=== PATIENT | female | born 1945 | race Caucasian/White ===

== ENCOUNTER 2016-08-30 20:40 | Inpatient (IN) | payer MEDICARE, BC, OTHER ==
[~2016-08-30] VITALS: Ht 160 cm; Wt 104.5 kg
[~2016-08-30 20:40] MED LIST: /HCTZ25TA PO; FISHOIL PO; GLUC250C5 PO; LEVO100T4 PO; SIMV20TA2 PO
[2016-08-30] MEDS ORDERED: ASPIRIN 81 MG CHEW TABLET As Ordered ONE (21:36)
[2016-08-30 22:00] LABS: ANION GAP 6 MEQ/L (8-16); BLOOD UREA NITROGEN 18 MG/DL (7-18); CALCIUM LEVEL 8.9 MG/DL (8.8-10.2); CARBON DIOXIDE LEVEL 31 MEQ/L (21-32); CHLORIDE LEVEL 108 MEQ/L (98-107); CREATININE FOR GFR 0.88 MG/DL (0.55-1.02); GLOMERULAR FILTRATION RATE > 60.0 (>39); GLUCOSE, FASTING 125 MG/DL (83-110); POTASSIUM SERUM 3.4 MEQ/L (3.5-5.1); SODIUM LEVEL 145 MEQ/L (136-145)
[2016-08-30 22:01] LABS: INR 1.55
[2016-08-30] MEDS ORDERED: DIGO0.12 PO (22:01)
[2016-08-30] MEDS ORDERED: MELA10TA4 PO (22:01)
[2016-08-30] MEDS ORDERED: B COTAB3 PO (22:01)
[2016-08-30] MEDS ORDERED: ATOR40TA PO (22:01)
[2016-08-30] MEDS ORDERED: SYNT100T PO (22:01)
[2016-08-30] MEDS ORDERED: VITMTA PO (22:01)
[2016-08-30] MEDS ORDERED: GLUCTAB6 PO (22:01)
[2016-08-30] MEDS ORDERED: VITA100066 PO (22:01)
[2016-08-30] MEDS ORDERED: XARE20TA PO (22:01)
[2016-08-30] MEDS ORDERED: REFR0.5D8 OU (22:01)
[2016-08-30] MEDS ORDERED: REST0.05 OU (22:01)
[2016-08-30] MEDS ORDERED: SYST0.3G OU (22:01)
[2016-08-30] MEDS ORDERED: LOPR1TAB6 PO (22:01)
[2016-08-30] MEDS ORDERED: CALC1TAB30 PO (22:01)
[2016-08-30] MEDS ORDERED: LOTE0.5S OU (22:01)
[2016-08-30 22:38] LABS: BASO % 0.2 % (0.0-1.0); EOS # 0.1 K/mm3 (0.0-0.50); EOS % 0.8 % (0.0-3.0); LARGE UNSTAINED CELL # 0.1 K/mm3 (0.0-0.4); LARGE UNSTAINED CELL % 1.2 % (0.0-4.0); LYMPH # 1.3 K/mm3 (1.5-4.5); LYMPH % 13.4 % (24.0-44.0); MEAN CORPUSCULAR HEMOGLOBIN 30.4 pg (27.0-33.0); MONO # 0.5 K/mm3 (0.0-0.8); MONO % 5.2 % (0.0-5.0); NEUTROPHILS # 7.1 K/mm3 (1.8-7.7); NEUTROPHILS % 79.3 % (36.0-66.0); PLATELET COUNT, AUTOMATED 222 k/mm3 (150-450); WHITE BLOOD COUNT 8.9 K/mm3 (4.0-10.0)
[2016-08-31] VITALS (8 sets, daily range): BP systolic 117–140; BP diastolic 53–76
[2016-08-31] LABS: DIGOXIN LEVEL 0.7 NG/ML (0.5-2.0); FREE T4 1.68 NG/DL (0.76-1.46)
[2016-08-31] MEDS ORDERED: NS 1,000 ML IV SCH (00:02)
[2016-08-31] MEDS ORDERED: ONDANSETRON 4MG/2ML VIAL (J2405) IV PRN (00:15)
[2016-08-31] MEDS ORDERED: POTASSIUM CHLORIDE 10 MEQ SR TABLET PO SCH (01:01)
--- NOTE | 2016-08-31 01:08 | HPEPDOC ---
General Date of Admission Aug 31, 2016 at 00:02 Chief Complaint The patient is a 71-year-old female admitted with a reason for visit of CVA. History of Present Illness 71-year-old female with past medical history of hypertension, dyslipidemia, atrial fibrillation on Xarelto, hypothyroidism, and recent right-sided CVA status post TPA on 07/02/16 at [facility] presented to the ER after the patient went to Dr. Perez of neurology's office complaining of worsening left sided weakness. The patient states that her residual deficits following the CVA on 07/02 was left-sided weakness. However following TPA treatment and subsequent rehabilitation, the patient was able to regain most of her baseline physical function. However, the patient states that over the last 10 days she has had persistent and recurrent weakness of the left upper and left lower extremities. She notes that she has been dropping utensils with her left hand, and has had more trouble with her gait while using the rolling walker. The patient went to Dr. Perez's office today, and had an MRI of the brain done. Apparently, this study showed a new CVA on the right side. The patient was subsequently sent to the ER for further evaluation and management. During this time, the patient denies any fevers, chills, chest pain, palpitations, shortness of breath, facial droop, slurring of speech, visual blurring, or any other acute complaints. The ER physician has gone into contact with Dr. Perez of neurology, and he is recommending adding 81 mg of aspirin to the patient's medication regimen, which already includes Xarelto. The patient will be admitted under the service of Dr. Garcia, who will begin to follow the patient on 08/31/2016 at 7 AM. Home Medications Scheduled (Calcium 500+D 500-200 mg-Unit) 1 Tab Tab 1 TAB PO QHS (Reported) (Glucosamine Chondroitin) 1 Tab Tab 1 TAB PO BID (Reported) (Restasis) 0.05 % Emu 1 DROP OU BID (Reported) (B Complex) 1 Tab Tab 1 TAB PO DAILY (Reported) Atorvastatin Calcium (Atorvastatin Calcium) 40 Mg Tab 40 MG PO DAILY (Reported ) Cholecalciferol (Vitamin D) 1,000 Unit Tab 2,000 UNIT PO DAILY (Reported) Digoxin (Digoxin) 0.125 Mg Tab 0.125 MG PO DAILY (Reported) Hydroxypropyl Methylcellulose (Systane Overnight Therapy) 0.3 % Gel 1 DROP OU QHS (Reported) Levothyroxine Sodium (Synthroid) 100 Mcg Tab 100 MCG PO DAILY (Reported) Loteprednol Etabonate (Lotemax) 0.5 % Mita 1 DROP OU TID (Reported) Melatonin (Melatonin) 10 Mg Tab 10 MG PO QHS (Reported) Metoprolol Tartrate (Lopressor) 50 Mg Tab 150 MG PO BID (Reported) Multivitamins *[facility] STOCKED* (Thera M Plus *[facility] STOCKED*) 1 Tab Tab 1 TAB PO DAILY (Reported) Rivaroxaban (Xarelto) 20 Mg Tab 20 MG PO DAILY (Reported) Scheduled PRN Carboxymethylcellulose Sodium (Refresh Tears) 0.5 % Ervin 1 DROP OU TID PRN PRN DRY EYES (Reported) Allergies Coded Allergies: Aspirin (Verified Allergy, Intermediate, HIVES, 10/20/12) Shellfish Allergy (Verified Allergy, Unknown, 10/20/12) Sulfa Drugs (Verified Allergy, Unknown, 10/20/12) Sulfa Drugs Cross Reactors (Verified Allergy, Unknown, 10/20/12) Past Medical History Medical History Left meniscectomy in 1993. Colonoscopy in the past. Family History Father had liver cancer, mother had colon cancer Social History * Smoker: non-smoker Alcohol: denies Drugs: denies Review of Symptoms Other systems 10 point review of systems negative unless otherwise specified in HPI. Physical Examination General Exam: Positive: Alert, Cooperative, No Acute Distress Eye Exam: Positive: Conjunctiva & lids normal, EOMI Neck Exam: Negative: JVD Chest Exam: Positive: Clear to auscultation, Normal air movement Heart Exam: Positive: Irregular Rhythm, Tachycardic Telemetry: Positive: Atrial fibrillation Abdomen Exam: Positive: Soft, Negative: Tenderness Extremity Exam: Negative: Tenderness Neuro Exam: Positive: Other (patient noted to have 5 out of 5 strength in the upper extremities bilaterally. Patient noted to have 5 out of 5 strength in the right lower extremity. Patient does have significant weakness on plantar flexion and extension of the left ankle. It does appear that the patient also has fine motor muscle weakness in the left hand as well.) Vital Signs As noted in EMR. Laboratory Data Labs 24H Laboratory Tests 2 08/30/16 21:15: Activated Partial Thromboplast Time 29.7, Anion Gap 6L, White Blood Count 8.9, Red Blood Count 4.67, Hemoglobin 14.2, Hematocrit 43.0, Mean Corpuscular Volume 92.0, Mean Corpuscular Hemoglobin 30.4, Mean Corpuscular Hemoglobin Concent 33.0 , Red Cell Distribution Width 15.0H, Platelet Count 222, Neutrophils (%) (Auto) 79.3H, Lymphocytes (%) (Auto) 13.4L, Monocytes (%) (Auto) 5.2H, Eosinophils (%) (Auto) 0.8, Basophils (%) (Auto) 0.2, Neutrophils # (Auto) 7.1, Lymphocytes # ( Auto) 1.3L, Monocytes # (Auto) 0.5, Eosinophils # (Auto) 0.1, Basophils # (Auto ) 0.0, Blood Urea Nitrogen 18, Creatinine 0.88, Sodium Level 145, Potassium Level 3.4L, Chloride Level 108H, Carbon Dioxide Level 31, Calcium Level 8.9, Digoxin Level 0.7, Free Thyroxine 1.68H, Glomerular Filtration Rate > 60.0, Large Unclassified Cells # 0.1, Large Unclassified Cells % 1.2, Prothromb Time International Ratio 1.55, Prothrombin Time 18.7H, Thyroid Stimulating Hormone ( TSH) 0.725 CBC/BMP Laboratory Tests 08/30/16 21:15 Calcium Level 8.9, Red Blood Count 4.67, Mean Corpuscular Volume 92.0, Mean Corpuscular Hemoglobin 30.4, Mean Corpuscular Hemoglobin Concent 33.0, Red Cell Distribution Width 15.0 H, Neutrophils (%) (Auto) 79.3 H, Lymphocytes (%) (Auto ) 13.4 L, Monocytes (%) (Auto) 5.2 H, Eosinophils (%) (Auto) 0.8, Basophils (%) (Auto) 0.2, Neutrophils # (Auto) 7.1, Lymphocytes # (Auto) 1.3 L, Monocytes # ( Auto) 0.5, Eosinophils # (Auto) 0.1, Basophils # (Auto) 0.0 Plan / VTE VTE Prophylaxis Ordered?: Yes (already on anticoagulation) Plan Plan Recurrent CVA Admit to telemetry unit Initial right-sided CVA noted on 07/02/16, patient status post TPA at [facility] with resolution of residual deficits of left-sided weakness Patient had a return of left-sided weakness, and Repeat MRI of the brain done as an outpatient at Dr. Perez's office shows a new CVA on the right side Patient previously on Xarelto for anticoagulation 81 mg of aspirin has been added to this regimen Continue statin Continue neurological checks I have put in an obtain records order, to obtain more details about the patient' s recent hospitalization at [facility], and the studies performed there Physical therapy eval ordered Atrial fibrillation On Xarelto Patient is noted to have a heart rate in the 110s at the moment Hold beta jake medication for now given borderline low blood pressure Continue digoxin, dig levels noted to be within therapeutic limits She will be given gentle IV fluid hydration Hypertension Will hold off on BP meds at this time, as the patient is borderline hypotensive in the ER Gentle IV fluid hydration Dyslipidemia Continue statin We will also obtain a hemoglobin A1c level. Hypothyroidism Continue levothyroxine DVT prophylaxis-already on a novel anticoagulant The patient will be admitted to the service of Dr. García, who will begin to follow the patient on 08/31/2016 at 7 AM. TRUPTI MELÉNDEZ MD Aug 31, 2016 01:08
[2016-08-31] MEDS ORDERED: POTASSIUM CHLORIDE 10 MEQ SR TABLET As Ordered ONE (01:39)
[2016-08-31] MEDS: LEVOTHYROXINE 0.1 MG TAB (100 MCG) PO SCH (06:03)
--- NOTE | 2016-08-31 07:54 | REP ---
Clinical: Cerebrovascular accident . Comparison: 08/03/2012 . Technique: PA and lateral. Findings: The mediastinum and cardiac silhouette are normal. The lung hodges are clear and without acute consolidation, effusion, or pneumothorax. The skeletal structures are intact and normal. Impression: 1. No acute cardiopulmonary process. Signed by Yaya Ortiz MD 08/31/2016 07:45 A
--- NOTE | 2016-08-31 08:12 | ECGEPIP ---
Stationary ECG Study [facility] - ED Test Date: 2016-08-30 Pat Name: LEO PARK Department: Room: [place] [address] Gender: F Advance Agent: : 1945 Requested By: BERTRAM OAKLEY Order Number: [id number] Reading MD: Nataliya Gooden Measurements Intervals [place] Rate: 119 P: RI: 0 QRS: 1 QRSD: 86 T: 209 QT: 285 QTc: 402 Interpretive Statements ATRIAL FIBRILLATION WITH RAPID VENTRICULAR RESPONSE MODERATE VOLTAGE CRITERIA FOR LVH, CONSIDER NORMAL VARIANT INFERIOR MYOCARDIAL INFARCTION, OF INDETERMINATE AGE ST DEVIATION AND MODERATE T-WAVE ABNORMALITY, CONSIDER ANTEROLATERAL ISCHEMIA PRIOR NSR 08/03/12 Electronically Signed On 08-31-2016 8:12:06 EST by Nataliya Gooden
[2016-08-31] MEDS: RIVAROXABAN 20 MG TAB (XARELTO) PO SCH (08:21)
[2016-08-31] MEDS: ASPIRIN 81 MG ENTERIC TAB PO SCH (08:21)
[2016-08-31] MEDS: ATORVASTATIN 20 MG TAB PO SCH (08:21)
[2016-08-31] MEDS: DIGOXIN 0.125 MG TAB PO SCH (08:21)
[2016-08-31] MEDS: VITAMIN D 1,000 INTERNATIONAL UNITS TABLET PO SCH (08:21)
[2016-08-31] MEDS: MULTIVITAMINS/MINERALS THERAP 1 TAB PO SCH (08:21)
--- NOTE | 2016-08-31 12:35 | EDDOCDS ---
Physician Documentation [facility] Name: Courtney Torres Age: 71 yrs Sex: Female : 1945 Arrival Date: 08/30/2016 Time: 20:40 Bed Admit Hold Private MD: Siddharth Peace Disposition: 08/30/16 23:[address] for Observation. Preliminary diagnosis is Cerebral infarction. - Bed requested for PCU. - Status is Observation. kcs - Condition is Stable. - Problem is an acute exacerbation. - Symptoms are unchanged. Historical: - Allergies: SULFA (SULFONAMIDES) (Hives); - Home Meds: 1. levothyroxine 100 mcg Oral cap 1 cap once daily 2. Lanoxin 125 mcg oral tab once daily 3. Lopressor 50 mg Oral tab 1 tab 3 times per day 4. Xarelto 20 mg oral tab 1 tab once daily 5. atorvastatin 40 mg oral tab 1 tab once daily 6. omeprazole 40 mg Oral cpDR 1 cap once daily 7. melatonin 10 mg Oral TbDL nightly 8. Calcium + Vitamin D 600 mg calcium- 200 unit Oral tab daily 9. Vitamin D3 2,000 unit oral cap daily 10. glucosamine-chondroitin Unknown oral twice a day 11. Restasis 0.05 % ophthalmic dpet 1 drop 2 times per day - PMHx: CVA; Hypertension; Hypercholesterolemia; Hypothyroidism; GERD; - PSHx: bilateral knee replacement; right ankle fx with hardware; - Social history: Smoking status: Patient states was never smoker of tobacco. No barriers to communication noted, The patient speaks fluent [place]. - : The pt / caregiver states he / she is on anticoagulants: Xarelto Home medication list is obtained from the patient. - Exposure Risk Screening:: None identified. Vital Signs: 08/30 20:42 BP 116 / 66; Pulse 100; Resp 18 S; Temp 96.1(O); Pulse Ox 98% ; Weight 102.06 kg / 225 gr2 lbs (R); Height 5 ft. 3 in. (160.02 cm) (R); Pain 2/10; 22:00 BP 130 / 86 (auto/); nn1 22:00 Pulse 114 MON; Pulse Ox 95% ; nn1 22:39 BP 142 / 58 (auto/); nn1 22:39 Pulse 96 MON; Pulse Ox 93% ; nn1 22:54 BP 129 / 60 (auto/); nn1 22:54 Pulse 94 MON; Pulse Ox 94% ; nn1 23:09 BP 125 / 58 (auto/); nn1 23:09 Pulse 98 MON; Pulse Ox 94% ; nn1 23:24 BP 140 / 63 (auto/); nn1 23:25 Pulse 96 MON; Pulse Ox 92% ; nn1 23:30 Pulse 110 MON; Pulse Ox 97% ; nn1 23:39 BP 141 / 63 (auto/); nn1 23:39 Pulse 110 MON; Pulse Ox 96% ; nn1 23:51 Pulse 110 MON; Pulse Ox 94% ; nn1 23:54 BP 128 / 58 (auto/); nn1 23:54 Pulse 118 MON; Pulse Ox 93% ; nn1 23:59 Resp 18; Temp 96.5(O); Pain 0/10; nn1 08/31 00:09 BP 124 / 63 (auto/); nn1 00:09 Pulse 110 MON; Pulse Ox 96% ; nn1 00:24 BP 130 / 60 (auto/); nn1 00:24 Pulse 112 MON; Pulse Ox 94% ; nn1 00:39 BP 126 / 59 (auto/); nn1 00:39 Pulse 100 MON; Pulse Ox 94% ; nn1 08/30 20:42 Body Mass Index 39.86 (102.06 kg, 160.02 cm) gr2 MDM: 08/30 21:05 Banquet Attendant/Pulse Ox/q 15 min VS ordered. le 21:05 IV Saline Lock ordered. le 21:05 Rhythm Strip to chart ordered. le 21:07 Basic Metabolic Profile Ordered. EDMS 21:07 CBC with Diff Ordered. EDMS 21:07 Partial Thromboplastin Time Ordered. EDMS 21:07 Prothrombin Time Profile\E\INR Ordered. EDMS 21:08 Chest, 2 View (pa\E\lat) Ordered. EDMS 21:08 ECG WITH READING ER PHYS+CARDIAG ordered. EDMS 21:08 BED REQUEST+ADM ordered. EDMS 21:18 NS 0.9% 500 ml IV at bolus once ordered. le 21:23 Aspirin Chewable Tablet 81 mg PO once ordered. le 22:11 Financial registration complete. zo 22:20 [facility] Payment Agreement was scanned into [employer] and attached to record. zo 22:37 Basic Metabolic Profile Reviewed. le 22:37 Prothrombin Time Profile\E\INR Reviewed. le 22:37 Partial Thromboplastin Time Reviewed. le 23:20 CBC with Diff Reviewed. le 23:38 DIGOXIN LEVEL Ordered. EDMS 23:38 FT4&TSH PANEL Ordered. EDMS 08/31 00:13 PHYSICAL THERAPY EVAL & TREAT ordered. EDMS 00:14 Admission / Observation Status ordered. EDMS 00:14 CONSISTENT CARBOHYDRATES ordered. EDMS 07:20 HEMOGLOBIN A1C Ordered. EDMS Administered Medications: 08/30 21:42 Drug: NS 0.9% 500 ml [sodium chloride 0.9 % intravenous solution] Route: IV; Rate: nn1 bolus; Site: right antecubital; 23:13 Follow up: IV Status: Completed infusion; IV Intake: 500ml nn1 21:42 Drug: Aspirin 81 mg [aspirin 81 mg chewable tablet (1 tabs)] Route: PO; nn1 Signatures: Dispatcher [employer] Irene Hill RN RN kcs Olin, Zoeann zo Westcott, Lisa, [employer] Shannon Robison RN RN Jack Aguila RN RN mts Nunez, Nikkole RN nn1 The chart was reviewed and I authenticate all verbal orders and agree with the evaluation and treatment provided.Corrections: (The following items were deleted from the chart) 23:39 22:38 DIGOXIN LEVEL+LAB ordered. EDTX EDTX 23:39 22:38 FT4&TSH PANEL+LAB ordered. [facility] EDTX 08/31 07:20 01:10 HEMOGLOBIN A1C ordered. [facility] EDTX Attachments: 08/30 22:20 [facility] Payment Agreement zo MTDD
--- NOTE | 2016-08-31 12:35 | EDDOCDS ---
Nurse's Notes [facility] Name: Courtney Park Age: 71 yrs Sex: Female : 1945 Arrival Date: 08/30/2016 Time: 20:40 Bed Admit Hold Private MD: Siddharth Peace Diagnosis: Cerebral infarction Presentation: 08/30 20:51 Presenting complaint: Patient states: CVA this past June, noticing increasing jjr weakness to left side for past 10 days, seen by Dr Perez today with MRI and told she has had a second stroke. The last date and time the patient was known to be well was was at an unknown time on an unknown date. No acute neurological deficit is noted. Pre-hospital glucose is not applicable to this patient. Adult Sepsis Screening: Patient has new or worsening altered mentation (1 point). Patient's respiratory rate is less than 22. Systolic blood pressure is greater than 100. Patient has a qSOFA score of 1- Negative Sepsis Screen. Suicide/Homicide risk assessment- the patient denies having any suicidal and/or homicidal ideations and does not present with any other emotional, behavioral or mental health complaints. Status: Patient is not a auto servicer or dependent. Transition of care: patient was received from Chris. 20:51 Acuity: DINA Level 3 jjr 20:51 Method Of Arrival: Walkin/Carried/Asstd jjr Triage Assessment: 20:57 The onset of the patients symptoms was more than three hours ago. General: Appears in jjr no apparent distress, Behavior is appropriate for age. Pain: Denies pain. Neurological: Level of Consciousness is awake, alert, obeys commands, Reports weakness. Historical: - Allergies: SULFA (SULFONAMIDES) (Hives); - Home Meds: 1. levothyroxine 100 mcg Oral cap 1 cap once daily 2. Lanoxin 125 mcg oral tab once daily 3. Lopressor 50 mg Oral tab 1 tab 3 times per day 4. Xarelto 20 mg oral tab 1 tab once daily 5. atorvastatin 40 mg oral tab 1 tab once daily 6. omeprazole 40 mg Oral cpDR 1 cap once daily 7. melatonin 10 mg Oral TbDL nightly 8. Calcium + Vitamin D 600 mg calcium- 200 unit Oral tab daily 9. Vitamin D3 2,000 unit oral cap daily 10. glucosamine-chondroitin Unknown oral twice a day 11. Restasis 0.05 % ophthalmic dpet 1 drop 2 times per day - PMHx: CVA; Hypertension; Hypercholesterolemia; Hypothyroidism; GERD; - PSHx: bilateral knee replacement; right ankle fx with hardware; - Social history: Smoking status: Patient states was never smoker of tobacco. No barriers to communication noted, The patient speaks fluent German. - : The pt / caregiver states he / she is on anticoagulants: Xarelto Home medication list is obtained from the patient. - Exposure Risk Screening:: None identified. Screenin:51 Fall Risk. jjr 08/31 01:00 Screening information is obtained from the patient. Fall risk: At risk due to gait nn1 disturbance, weakness following stroke. Assistance ADL's: requires no assistance with activities of daily living. Abuse/DV Screen: The patient / caregiver reports he/she is: not in a situation that causes fear, pain or injury. Nutritional screening: No deficits noted. home support is adequate. 01:08 Advance Directives: There is no active DNR order. nn1 Assessment: 08/30 21:34 General: Appears in no apparent distress, Behavior is appropriate for age, cooperative. nn1 General: Patient able to get up to bedside commode. Reports weakness with ambulation x 10 days. . Neurological: Level of Consciousness is awake, alert, obeys commands, Oriented to person, place, time, Weakness in left hand's) foot/feet. Respiratory: Airway is patent Respiratory effort is even, unlabored, Respiratory pattern is regular, symmetrical, Breath sounds are clear bilaterally. GI: Abdomen is obese, Bowel sounds present X 4 quads. Reports nausea. Derm: Skin is pink, warm & dry. Musculoskeletal: Range of motion intact in all extremities. 22:36 General: Appears in no apparent distress, comfortable, Behavior is appropriate for age, nn1 cooperative. Cardiovascular: Rhythm is atrial fibrillation Chest pain is denied. Respiratory: Airway is patent Respiratory effort is even, unlabored, Respiratory pattern is regular, symmetrical. 23:57 General: Warm blanket applied, hospitalist at bedside. . Neurological: Level of nn1 Consciousness is awake, alert, obeys commands, Oriented to person, place, time. Cardiovascular: Rhythm is atrial fibrillation Chest pain is denied. Respiratory: Airway is patent Respiratory effort is even, unlabored, Respiratory pattern is regular, symmetrical. 08/31 00:00 Pain: Denies pain. nn1 01:02 General: Patient moved to hospital bed, report given to Adalberto Chan RN. . nn1 Neurological: Level of Consciousness is awake, alert, obeys commands, Oriented to person, place, time, Moves all extremities. Weakness in left hand's). Respiratory: Airway is patent Respiratory effort is even, unlabored, Respiratory pattern is regular, symmetrical. Derm: Skin is pink, warm & dry. 02:25 Cardiovascular: Rhythm is atrial fibrillation with rapid ventricular response. jul 06:27 Cardiovascular: Rhythm is atrial fibrillation with rapid ventricular response. jul Vital Signs: 08/30 20:42 BP 116 / 66; Pulse 100; Resp 18 S; Temp 96.1(O); Pulse Ox 98% ; Weight 102.06 kg (R); gr2 Height 5 ft. 3 in. (160.02 cm) (R); Pain 2/10; 22:00 BP 130 / 86 (auto/); nn1 22:00 Pulse 114 MON; Pulse Ox 95% ; nn1 22:39 BP 142 / 58 (auto/); nn1 22:39 Pulse 96 MON; Pulse Ox 93% ; nn1 22:54 BP 129 / 60 (auto/); nn1 22:54 Pulse 94 MON; Pulse Ox 94% ; nn1 23:09 BP 125 / 58 (auto/); nn1 23:09 Pulse 98 MON; Pulse Ox 94% ; nn1 23:24 BP 140 / 63 (auto/); nn1 23:25 Pulse 96 MON; Pulse Ox 92% ; nn1 23:30 Pulse 110 MON; Pulse Ox 97% ; nn1 23:39 BP 141 / 63 (auto/); nn1 23:39 Pulse 110 MON; Pulse Ox 96% ; nn1 23:51 Pulse 110 MON; Pulse Ox 94% ; nn1 23:54 BP 128 / 58 (auto/); nn1 23:54 Pulse 118 MON; Pulse Ox 93% ; nn1 23:59 Resp 18; Temp 96.5(O); Pain 0/10; nn1 08/31 00:09 BP 124 / 63 (auto/); nn1 00:09 Pulse 110 MON; Pulse Ox 96% ; nn1 00:24 BP 130 / 60 (auto/); nn1 00:24 Pulse 112 MON; Pulse Ox 94% ; nn1 00:39 BP 126 / 59 (auto/); nn1 00:39 Pulse 100 MON; Pulse Ox 94% ; nn1 02 20:42 Body Mass Index 39.86 (102.06 kg, 160.02 cm) gr2 Vitals: 08/30 20:42 Log In Time: August 30, 2016 at 20:42. RN notified that patient meets Red Flag gr2 criteria. ED Course: 20:41 Patient visited by Fercho Antonio. gr2 20:41 Siddharth Peace MD is Private Physician. gr2 20:41 Patient moved to Waiting gr2 20:47 Patient visited by Fercho Antonio. gr2 20:49 Ngoc BolandRN is Primary Nurse. ko2 20:49 Patient moved to 12 ko2 20:52 Triage Initiated jjr 20:56 Flakita Cali FNP is PHCP. le 21:07 Patient visited by Flakita Cali FNP. le 21:07 Patient visited by Flakita Cali FNP. le 21:12 EKG done. (by ED staff). Reviewed by Flakita OAKLEY. lr2 21:33 Patient moved to Radiology tmb 21:34 Prothrombin Time Profile\E\INR Sent. nn1 21:34 Partial Thromboplastin Time Sent. nn1 21:34 CBC with Diff Sent. nn1 21:34 Basic Metabolic Profile Sent. nn1 21:42 Inserted saline lock: 20 gauge in right antecubital area and blood collected. The nn1 patient tolerated the procedure well. 22:01 Patient moved to 12 tmb 22:04 Patient visited by Abbey Fu PCA. ar3 22:20 [facility] Payment Agreement was scanned into [employer] and attached to record. zo 23:02 Lane Fitzgerald is Hospitalizing Provider. le 08/31 00:28 Patient moved to Admit Hold deacon 01:03 Umm Rodriguez,ZAHEER is Primary Nurse. nn1 01:03 Patient moved to 20 nn1 01:08 Patient moved to Admit Hold ml3 03:18 Primary Nurse role handed off by Ngoc Boland,ZAHEER kb5 03:18 Primary Nurse role handed off by Umm Rodriguez,ZAHEER kb5 07:07 Tyshawn Malloy MD is Attending Physician. pc 08:06 Chest, 2 View (pa\E\lat) Returned. EDMS 08:40 ELECTROCARDIOGRAM ADULT Returned. EDMS Administered Medications: 08/30 21:42 Drug: NS 0.9% 500 ml [sodium chloride 0.9 % intravenous solution] Route: IV; Rate: nn1 bolus; Site: right antecubital; 23:13 Follow up: IV Status: Completed infusion; IV Intake: 500ml nn1 21:42 Drug: Aspirin 81 mg [aspirin 81 mg chewable tablet (1 tabs)] Route: PO; nn1 Intake: 23:13 IV: 500.00ml; Total: 500.00ml. nn1 Order Results: Lab Order: Basic Metabolic Profile; BRIAN'Bambi 08/30/16 21:15 Test: GLUCOSE, FASTING; Value: 125; Range: 83-110; Abnormal: Above high normal; Units: MG/DL; Status: F Test: BLOOD UREA NITROGEN; Value: 18; Range: 7-18; Units: MG/DL; Status: F Test: CREATININE FOR GFR; Value: 0.88; Range: 0.55-1.02; Units: MG/DL; Status: F Test: GLOMERULAR FILTRATION RATE; Value: > 60.0; Range: >39; Status: F Test: SODIUM LEVEL; Value: 145; Range: 136-145; Units: MEQ/L; Status: F Test: POTASSIUM SERUM; Value: 3.4; Range: 3.5-5.1; Abnormal: Below low normal; Units: MEQ/L; Status: F Test: CHLORIDE LEVEL; Value: 108; Range: 98-107; Abnormal: Above high normal; Units: MEQ/L; Status: F Test: CARBON DIOXIDE LEVEL; Value: 31; Range: 21-32; Units: MEQ/L; Status: F Test: ANION GAP; Value: 6; Range: 8-16; Abnormal: Below low normal; Units: MEQ/L; Status: F Test: CALCIUM LEVEL; Value: 8.9; Range: 8.8-10.2; Units: MG/DL; Status: F Test Note: ; Units are mL/min/1.73 m2 Chronic Kidney Disease Staging per NKF: Stage I & II GFR >=60 Normal to Mildly Decreased Stage III GFR 30-59 Moderately Decreased Stage IV GFR 15-29 Severely Decreased Stage V GFR <15 Very Little GFR Left ESRD GFR <15 on QUALITY INTERN Lab Order: CBC with Diff; BRIAN'M 08/30/16 21:15 Test: WHITE BLOOD COUNT; Value: 8.9; Range: 4.0-10.0; Units: K/mm3; Status: F Test: RED BLOOD COUNT; Value: 4.67; Range: 4.00-5.40; Units: M/mm3; Status: F Test: HEMOGLOBIN; Value: 14.2; Range: 12.0-16.0; Units: g/dl; Status: F Test: HEMATOCRIT; Value: 43.0; Range: 36.0-47.0; Units: %; Status: F Test: MEAN CORPUSCULAR VOLUME; Value: 92.0; Range: 80.0-96.0; Units: fl; Status: F Test: MEAN CORPUSCULAR HEMOGLOBIN; Value: 30.4; Range: 27.0-33.0; Units: pg; Status: F Test: MEAN CORPUSCULAR HGB CONC; Value: 33.0; Range: 32.0-36.5; Units: g/dl; Status: F Test: RED CELL DISTRIBUTION WIDTH; Value: 15.0; Range: 11.5-14.5; Abnormal: Above high normal; Units: %; Status: F Test: PLATELET COUNT, AUTOMATED; Value: 222; Range: 150-450; Units: k/mm3; Status: F Test: NEUTROPHILS %; Value: 79.3; Range: 36.0-66.0; Abnormal: Above high normal; Units: %; Status: F Test: LYMPH %; Value: 13.4; Range: 24.0-44.0; Abnormal: Below low normal; Units: %; Status: F Test: MONO %; Value: 5.2; Range: 0.0-5.0; Abnormal: Above high normal; Units: %; Status: F Test: EOS %; Value: 0.8; Range: 0.0-3.0; Units: %; Status: F Test: BASO %; Value: 0.2; Range: 0.0-1.0; Units: %; Status: F Test: LARGE UNSTAINED CELL %; Value: 1.2; Range: 0.0-4.0; Units: %; Status: F Test: NEUTROPHILS #; Value: 7.1; Range: 1.8-7.7; Units: K/mm3; Status: F Test: LYMPH #; Value: 1.3; Range: 1.5-4.5; Abnormal: Below low normal; Units: K/mm3; Status: F Test: MONO #; Value: 0.5; Range: 0.0-0.8; Units: K/mm3; Status: F Test: EOS #; Value: 0.1; Range: 0.0-0.50; Units: K/mm3; Status: F Test: BASO #; Value: 0.0; Range: 0.0-0.2; Units: K/mm3; Status: F Test: LARGE UNSTAINED CELL #; Value: 0.1; Range: 0.0-0.4; Units: K/mm3; Status: F Lab Order: Partial Thromboplastin Time; [facility] 08/30/16 21:15 Test: PARTIAL THROMBOPLASTIN TIME; Value: 29.7; Range: 26.6-37.1; Units: SECONDS; Status: F Lab Order: Prothrombin Time Profile\E\INR; [facility]08/30/16 21:15 Test: PROTHROMBIN TIME; Value: 18.7; Range: 12.3-14.5; Abnormal: Above high normal; Units: SECONDS; Status: F Test: INR; Value: 1.55; Status: F Test Note: ; THERAPUTIC HUMAN INR VALUES INDICATIONS NORMAL RANGES PROPHYLAXIS/TREATMENT OF: VENOUS THROMBOSIS 2.0-3.0 PULMONARY EMBOLISM 2.0-3.0 PREVENTION OF SYSTEMIC EMBOLISM FROM: TISSUE HEART VALVES 2.0-3.0 ACUTE MYOCARDIAL INFARCTION 2.0-3.0 VALVULAR HEART DISEASE 2.0-3.0 ATRIAL FIBRILLATION 2.0-3.0 MECHANICAL VALVES(HIGH RISK) 2.5-3.5 RECURRENT MYOCARDIAL INFARCTION 2.5-3.5 Lab Order: DIGOXIN LEVEL; 08/30/16 21:15 Test: DIGOXIN LEVEL; Value: 0.7; Range: 0.5-2.0; Units: NG/ML; Status: F Lab Order: FT4&TSH PANEL; 08/30/16 21:15 Test: THYROID STIMULATING HORMONE; Value: 0.725; Range: 0.358-3.740; Units: uIU/ML; Status: F Test: FREE T4; Value: 1.68; Range: 0.76-1.46; Abnormal: Above high normal; Units: NG/DL; Status: F Lab Order: HEMOGLOBIN A1C; SPEC'M 08/31/16 21:15 Test: HEMOGLOBIN A1c; Value: 6.5; Range: 4.5-6.2; Abnormal: Above high normal; Units: %; Status: F Test: ESTIMATED AVERAGE GLUCOSE; Value: 140; Range: 60-110; Abnormal: Above high normal; Units: MG/DL; Status: F Radiology Order: ELECTROCARDIOGRAM ADULT Test: ELECTROCARDIOGRAM ADULT REASON FOR EXAMINATION: CVA >4.5hrs; Stationary ECG Study; [facility] ED; ; Test Date: 2016-08-30; Pat Name: COURTNEY PARK Department:; Room: [place] [address]; 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:; : 1945 Requested By: FLAKITA OAKLEY; Order Number: [id number] Reading MD: Nataliya Gooden; Measurements; Intervals [place]; Rate: 119 P:; OK: 0 QRS: 1; QRSD: 86 T: 209; QT: 285; QTc: 402; Interpretive Statements; ATRIAL FIBRILLATION WITH RAPID VENTRICULAR RESPONSE; MODERATE VOLTAGE CRITERIA FOR LVH, CONSIDER NORMAL VARIANT; INFERIOR MYOCARDIAL INFARCTION, OF INDETERMINATE AGE; ST DEVIATION AND MODERATE T-WAVE ABNORMALITY, CONSIDER ANTEROLATERAL ISCHEMIA; PRIOR NSR 08/03/12; Electronically Signed On 08-31-2016 8:12:06 EST by Nataliya Gooden; Radiology Order: Chest, 2 View (pa\E\lat) Test: Chest, 2 View (pa\E\lat) REASON FOR EXAMINATION: CVA >4.5hrs; Clinical: Cerebrovascular accident .; ; Comparison: 08/03/2012 .; ; Technique: PA and lateral.; ; Findings:; The mediastinum and cardiac silhouette are normal. The lung hodges are clear and; without acute consolidation, effusion, or pneumothorax. The skeletal structures; are intact and normal.; ; Impression:; 1. No acute cardiopulmonary process.; ; ; Signed by; Yaya Ortiz MD 08/31/2016 07:45 A; Outcome: 23:02 Decision to Hospitalize by Provider. myke 08/31 12:34 Patient left the ED. kcs Signatures: Dispatcher [employer] EDTyshawn Tello MD MD pc Sleeman, Kacey, RN RN finesse Freeman, Maxine Rahman, RN RN deacon Michael, JazzTosha, Executive Creative Director Unit ml3 Sean Coppola Kristopher, PIN PUSHER PIN PUSHER [id number] Flakita Cali, TELEPHONE SERVICE ADVISER TELEPHONE SERVICE ADVISER Shannon Robison, RN RN jjr Abbey Fu, PIN PUSHER PIN PUSHER ar3 Fercho Antonio gr2 Be Reeves KariRN RN nadya2 John ValentinRN RN nn1 Celine Hatch2 FRANCOD
[2016-08-31] MEDS ORDERED: METOPROLOL TART 50 MG TAB As Ordered ONE (15:21)
[2016-08-31] MEDS ORDERED: METOPROLOL 5 MG/5 ML VIAL As Ordered ONE (15:24)
[2016-08-31] MEDS ORDERED: METOPROLOL 5 MG/5 ML VIAL IV STA (15:57)
[2016-08-31] MEDS ORDERED: METOPROLOL TARTRATE 100 MG TAB PO ONE (16:00)
[2016-08-31] MEDS: ACETAMINOPHEN TAB 650MG DOSE (2X325MG) PO PRN (20:39)
[2016-09-01 04:34] VITALS: BP 136/88
[2016-09-01] MEDS: LEVOTHYROXINE 0.1 MG TAB (100 MCG) PO SCH (05:28)
[2016-09-01 05:48] LABS: MEAN CORPUSCULAR HEMOGLOBIN 30.1 pg (27.0-33.0); MEAN CORPUSCULAR HGB CONC 32.6 g/dl (32.0-36.5); MEAN CORPUSCULAR VOLUME 92.3 fl (80.0-96.0); RED CELL DISTRIBUTION WIDTH 15.2 % (11.5-14.5); WHITE BLOOD COUNT 6.1 K/mm3 (4.0-10.0)
[2016-09-01 06:04] LABS: ANION GAP 7 MEQ/L (8-16); BLOOD UREA NITROGEN 11 MG/DL (7-18); CALCIUM LEVEL 8.7 MG/DL (8.8-10.2); CARBON DIOXIDE LEVEL 29 MEQ/L (21-32); CHLORIDE LEVEL 111 MEQ/L (98-107); CREATININE FOR GFR 0.68 MG/DL (0.55-1.02); GLOMERULAR FILTRATION RATE > 60.0 (>39); GLUCOSE, FASTING 105 MG/DL (83-110); MAGNESIUM LEVEL 1.8 MG/DL (1.8-2.4); POTASSIUM SERUM 3.8 MEQ/L (3.5-5.1); SODIUM LEVEL 147 MEQ/L (136-145)
[2016-09-01 08:00] VITALS: BP 126/81
[2016-09-01] MEDS: ATORVASTATIN 20 MG TAB PO SCH (08:21)
[2016-09-01] MEDS: ASPIRIN 81 MG ENTERIC TAB PO SCH (08:21)
[2016-09-01] MEDS: VITAMIN D 1,000 INTERNATIONAL UNITS TABLET PO SCH (08:21)
[2016-09-01] MEDS: DIGOXIN 0.125 MG TAB PO SCH (08:22)
[2016-09-01] MEDS: RIVAROXABAN 20 MG TAB (XARELTO) PO SCH (08:22)
[2016-09-01] MEDS: MULTIVITAMINS/MINERALS THERAP 1 TAB PO SCH (08:22)
[2016-09-01] MEDS: VERAPAMIL 120 MG SR TAB PO SCH (11:37)
[2016-09-01 12:00] VITALS: BP 168/101
[2016-09-01] MEDS ORDERED: NS 1,000 ML IV SCH (13:45)
--- NOTE | 2016-09-01 13:47 | IPNPDOC ---
Text Note Date of Service The patient was seen on 09/01/16. NOTE Subjective: Patient is a 71 year old female with a PMHx of HTN, DLP, A. Fib (on xarelto), Hypothyroidism and recent R sided CVA (s/p tPA on 06/28/16 at [facility] ) who presented to the ER after patient went to Dr. Perez complaining of worsening left sided weakness. She noted that she had similar symptoms in 2015, but was improving at home. She then had acute worsening and had an MRI which revealed a new CVA. She was admitted to PCU for new CVA. Patient had her metoprolol stopped in the ER and went into a.fib with RVR. She has been on digoxin as an outpatient and after discussion with Neurology and Cardiology, we will attempt to get HR controlled with verapamil to avoiding dropping SBP. Patient was seen and examined at the bedside. Has no new complaints. Objective: Vitals (See below) General: Lying in bed, no acute distress, comfortable, AAOx3 HEENT: NC, AT CVS: Irregularly irregular, +S1S2 Lungs: Fair air entry b/l, -w/r/r Abdomen: Soft, ND, NT, +BSx4 Extremities: -Edema, -Calf tenderness Neuro: CN 2-12 grossly intact, left UE of 4/5, left LE 4/5, right U/LE of 5/5 Assessment and plan: 1. Left sided weakness - likely 2/2 acute CVA - Presented with worsening left sided weakness with recent history of stroke in 06/2016 - Physical with focal weakness on left side - MRI with new acute infarction - Has been on Xarelto and atorvastatin as an outpatient - c/w Neuro checks - Physical therapy pending - Started ASA 81 - Neurology consulted - appreciate their input 2. Atrial fibrillation with RVR - likely 2/2 stopping metoprolol - patient remains completely asymptomatic and hemodynamically stable - c/w digoxin from home - Digoxin level adaquate - Will start verapamil to avoid dropping SBP significantly - c/w anticoagulation with Xarelto 3. HTN - Will hold metoprolol for now - Goal of SBP of 130-180s 4. DLP - c/w atorvastatin 5. Hypothyroidism - c/w levothyroxine 6. DVT prophylaxis - on full anticoagulation with Xarelto VS,Fishbone, I+O VS, Fishbone, I+O Laboratory Tests 09/01/16 05:23 Calcium Level 8.7 L, Red Blood Count 4.14, Mean Corpuscular Volume 92.3, Mean Corpuscular Hemoglobin 30.1, Mean Corpuscular Hemoglobin Concent 32.6, Red Cell Distribution Width 15.2 H Vital Signs Date Time Temp Pulse Resp B/P Pulse Ox O2 Delivery O2 Flow Rate FiO2 09/01/16 12:00 97.4 75 18 168/101 95 Room Air 08/31/16 08:30 1.0 I&O- Last 24 Hours up to 6 AM 09/01/16 06:00 Intake Total 2560 ml Output Total 1100 ml Balance 1460 ml RADHA HENRY MD Sep 01, 2016 13:47
[2016-09-01 16:00] VITALS: BP 135/83
[2016-09-01 20:00] VITALS: BP 146/76
[2016-09-02] VITALS: BP 127/59
[2016-09-02 04:00] VITALS: BP 155/88
[2016-09-02] MEDS: LEVOTHYROXINE 0.1 MG TAB (100 MCG) PO SCH (05:32)
[2016-09-02 05:44] LABS: MEAN CORPUSCULAR HEMOGLOBIN 30.4 pg (27.0-33.0); MEAN CORPUSCULAR VOLUME 92.3 fl (80.0-96.0); WHITE BLOOD COUNT 6.1 K/mm3 (4.0-10.0)
[2016-09-02 06:00] LABS: ANION GAP 8 MEQ/L (8-16); BLOOD UREA NITROGEN 9 MG/DL (7-18); CALCIUM LEVEL 8.6 MG/DL (8.8-10.2); CARBON DIOXIDE LEVEL 27 MEQ/L (21-32); CHLORIDE LEVEL 112 MEQ/L (98-107); CREATININE FOR GFR 0.62 MG/DL (0.55-1.02); GLOMERULAR FILTRATION RATE > 60.0 (>39); GLUCOSE, FASTING 111 MG/DL (83-110); POTASSIUM SERUM 3.5 MEQ/L (3.5-5.1); SODIUM LEVEL 147 MEQ/L (136-145)
[2016-09-02 08:00] VITALS: BP 134/86
[2016-09-02] MEDS: ASPIRIN 81 MG ENTERIC TAB PO SCH (08:49)
[2016-09-02] MEDS: DIGOXIN 0.125 MG TAB PO SCH (08:49)
[2016-09-02] MEDS: MULTIVITAMINS/MINERALS THERAP 1 TAB PO SCH (08:49)
[2016-09-02] MEDS: RIVAROXABAN 20 MG TAB (XARELTO) PO SCH (08:49)
[2016-09-02] MEDS: ATORVASTATIN 20 MG TAB PO SCH (08:49)
[2016-09-02] MEDS: VERAPAMIL 120 MG SR TAB PO SCH (08:50)
[2016-09-02] MEDS: VITAMIN D 1,000 INTERNATIONAL UNITS TABLET PO SCH (08:50)
[2016-09-02 12:00] VITALS: BP 146/59
--- NOTE | 2016-09-02 13:35 | EDDOCDS ---
Physician Documentation [facility] Name: Courtney Torres Age: 71 yrs Sex: Female : 1945 Arrival Date: 08/30/2016 Time: 20:40 Bed Admit Hold Private MD: Siddharth Peace Disposition: 08/30/16 23:[address] Fitzgerald for Observation. Preliminary diagnosis is Cerebral infarction. - Bed requested for PCU. - Status is Observation. kcs - Condition is Stable. - Problem is an acute exacerbation. - Symptoms are unchanged. Historical: - Allergies: SULFA (SULFONAMIDES) (Hives); - Home Meds: 1. levothyroxine 100 mcg Oral cap 1 cap once daily 2. Lanoxin 125 mcg oral tab once daily 3. Lopressor 50 mg Oral tab 1 tab 3 times per day 4. Xarelto 20 mg oral tab 1 tab once daily 5. atorvastatin 40 mg oral tab 1 tab once daily 6. omeprazole 40 mg Oral cpDR 1 cap once daily 7. melatonin 10 mg Oral TbDL nightly 8. Calcium + Vitamin D 600 mg calcium- 200 unit Oral tab daily 9. Vitamin D3 2,000 unit oral cap daily 10. glucosamine-chondroitin Unknown oral twice a day 11. Restasis 0.05 % ophthalmic dpet 1 drop 2 times per day - PMHx: CVA; Hypertension; Hypercholesterolemia; Hypothyroidism; GERD; - PSHx: bilateral knee replacement; right ankle fx with hardware; - Social history: Smoking status: Patient states was never smoker of tobacco. No barriers to communication noted, The patient speaks fluent Swedish. - : The pt / caregiver states he / she is on anticoagulants: Xarelto Home medication list is obtained from the patient. - Exposure Risk Screening:: None identified. Vital Signs: 08/30 20:42 BP 116 / 66; Pulse 100; Resp 18 S; Temp 96.1(O); Pulse Ox 98% ; Weight 102.06 kg / 225 gr2 lbs (R); Height 5 ft. 3 in. (160.02 cm) (R); Pain 2/10; 22:00 BP 130 / 86 (auto/); nn1 22:00 Pulse 114 MON; Pulse Ox 95% ; nn1 22:39 BP 142 / 58 (auto/); nn1 22:39 Pulse 96 MON; Pulse Ox 93% ; nn1 22:54 BP 129 / 60 (auto/); nn1 22:54 Pulse 94 MON; Pulse Ox 94% ; nn1 23:09 BP 125 / 58 (auto/); nn1 23:09 Pulse 98 MON; Pulse Ox 94% ; nn1 23:24 BP 140 / 63 (auto/); nn1 23:25 Pulse 96 MON; Pulse Ox 92% ; nn1 23:30 Pulse 110 MON; Pulse Ox 97% ; nn1 23:39 BP 141 / 63 (auto/); nn1 23:39 Pulse 110 MON; Pulse Ox 96% ; nn1 23:51 Pulse 110 MON; Pulse Ox 94% ; nn1 23:54 BP 128 / 58 (auto/); nn1 23:54 Pulse 118 MON; Pulse Ox 93% ; nn1 23:59 Resp 18; Temp 96.5(O); Pain 0/10; nn1 08/31 00:09 BP 124 / 63 (auto/); nn1 00:09 Pulse 110 MON; Pulse Ox 96% ; nn1 00:24 BP 130 / 60 (auto/); nn1 00:24 Pulse 112 MON; Pulse Ox 94% ; nn1 00:39 BP 126 / 59 (auto/); nn1 00:39 Pulse 100 MON; Pulse Ox 94% ; nn1 08/30 20:42 Body Mass Index 39.86 (102.06 kg, 160.02 cm) gr2 MDM: 08/30 21:05 Blue Split Trimmer/Pulse Ox/q 15 min VS ordered. le 21:05 IV Saline Lock ordered. le 21:05 Rhythm Strip to chart ordered. le 21:07 Basic Metabolic Profile Ordered. EDMS 21:07 CBC with Diff Ordered. EDMS 21:07 Partial Thromboplastin Time Ordered. EDMS 21:07 Prothrombin Time Profile\E\INR Ordered. EDMS 21:08 Chest, 2 View (pa\E\lat) Ordered. EDMS 21:08 ECG WITH READING ER PHYS+CARDIAG ordered. EDMS 21:08 BED REQUEST+ADM ordered. EDMS 21:18 NS 0.9% 500 ml IV at bolus once ordered. le 21:23 Aspirin Chewable Tablet 81 mg PO once ordered. le 22:11 Financial registration complete. zo 22:20 [facility] Payment Agreement was scanned into [employer] and attached to record. zo 22:37 Basic Metabolic Profile Reviewed. le 22:37 Prothrombin Time Profile\E\INR Reviewed. le 22:37 Partial Thromboplastin Time Reviewed. le 23:20 CBC with Diff Reviewed. le 23:38 DIGOXIN LEVEL Ordered. EDMS 23:38 FT4&TSH PANEL Ordered. EDMS 08/31 00:13 PHYSICAL THERAPY EVAL & TREAT ordered. EDMS 00:14 Admission / Observation Status ordered. EDMS 00:14 CONSISTENT CARBOHYDRATES ordered. EDMS 07:20 HEMOGLOBIN A1C Ordered. EDMS 15:33 T-Sheet-- Draft Copy was scanned into [employer] and attached to record. gb 15:33 ECG/EKG was scanned into [employer] and attached to record. gb 15:33 Trend VS was scanned into [employer] and attached to record. gb Administered Medications: 08/30 21:42 Drug: NS 0.9% 500 ml [sodium chloride 0.9 % intravenous solution] Route: IV; Rate: nn1 bolus; Site: right antecubital; 23:13 Follow up: IV Status: Completed infusion; IV Intake: 500ml nn1 21:42 Drug: Aspirin 81 mg [aspirin 81 mg chewable tablet (1 tabs)] Route: PO; nn1 Signatures: Dispatcher [employer] [facility] Irene Verma, RN RN Rahel Kapoor, Sean Holm Lisa, TUBING MACHINE OPERATOR TUBING MACHINE OPERATOR Shannon Robison, RN Jack Thomas RN RN mts Nunez, Nikkole RN nn1 The chart was reviewed and I authenticate all verbal orders and agree with the evaluation and treatment provided.Corrections: (The following items were deleted from the chart) 23:39 22:38 DIGOXIN LEVEL+LAB ordered. EDNH EDMS 23:39 22:38 FT4&TSH PANEL+LAB ordered. ED[facility] EDMS 08/31 07:20 01:10 HEMOGLOBIN A1C ordered. ED[facility] EDMS Attachments: 08/30 22:20 [facility] Payment Agreement zo 08/31 15:33 T-Sheet-- Draft Copy gb 15:33 ECG/EKG gb Chart Complete MTDD
--- NOTE | 2016-09-02 13:35 | EDDOCDS ---
Nurse's Notes [facility] Name: Courtney Park Age: 71 yrs Sex: Female : 1945 Arrival Date: 08/30/2016 Time: 20:40 Bed Admit Hold Private MD: Siddharth Peace Diagnosis: Cerebral infarction Presentation: 08/30 20:51 Presenting complaint: Patient states: CVA this past June, noticing increasing jjr weakness to left side for past 10 days, seen by Dr Perez today with MRI and told she has had a second stroke. The last date and time the patient was known to be well was was at an unknown time on an unknown date. No acute neurological deficit is noted. Pre-hospital glucose is not applicable to this patient. Adult Sepsis Screening: Patient has new or worsening altered mentation (1 point). Patient's respiratory rate is less than 22. Systolic blood pressure is greater than 100. Patient has a qSOFA score of 1- Negative Sepsis Screen. Suicide/Homicide risk assessment- the patient denies having any suicidal and/or homicidal ideations and does not present with any other emotional, behavioral or mental health complaints. 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 Transition of care: patient was received from Chris. 20:51 Acuity: DINA Level 3 jjr 20:51 Method Of Arrival: Walkin/Carried/Asstd jjr Triage Assessment: 20:57 The onset of the patients symptoms was more than three hours ago. General: Appears in jjr no apparent distress, Behavior is appropriate for age. Pain: Denies pain. Neurological: Level of Consciousness is awake, alert, obeys commands, Reports weakness. Historical: - Allergies: SULFA (SULFONAMIDES) (Hives); - Home Meds: 1. levothyroxine 100 mcg Oral cap 1 cap once daily 2. Lanoxin 125 mcg oral tab once daily 3. Lopressor 50 mg Oral tab 1 tab 3 times per day 4. Xarelto 20 mg oral tab 1 tab once daily 5. atorvastatin 40 mg oral tab 1 tab once daily 6. omeprazole 40 mg Oral cpDR 1 cap once daily 7. melatonin 10 mg Oral TbDL nightly 8. Calcium + Vitamin D 600 mg calcium- 200 unit Oral tab daily 9. Vitamin D3 2,000 unit oral cap daily 10. glucosamine-chondroitin Unknown oral twice a day 11. Restasis 0.05 % ophthalmic dpet 1 drop 2 times per day - PMHx: CVA; Hypertension; Hypercholesterolemia; Hypothyroidism; GERD; - PSHx: bilateral knee replacement; right ankle fx with hardware; - Social history: Smoking status: Patient states was never smoker of tobacco. No barriers to communication noted, The patient speaks fluent Uzbek. - : The pt / caregiver states he / she is on anticoagulants: Xarelto Home medication list is obtained from the patient. - Exposure Risk Screening:: None identified. Screenin:51 Fall Risk. jjr 08/31 01:00 Screening information is obtained from the patient. Fall risk: At risk due to gait nn1 disturbance, weakness following stroke. Assistance ADL's: requires no assistance with activities of daily living. Abuse/DV Screen: The patient / caregiver reports he/she is: not in a situation that causes fear, pain or injury. Nutritional screening: No deficits noted. home support is adequate. 01:08 Advance Directives: There is no active DNR order. nn1 Assessment: 08/30 21:34 General: Appears in no apparent distress, Behavior is appropriate for age, cooperative. nn1 General: Patient able to get up to bedside commode. Reports weakness with ambulation x 10 days. . Neurological: Level of Consciousness is awake, alert, obeys commands, Oriented to person, place, time, Weakness in left hand's) foot/feet. Respiratory: Airway is patent Respiratory effort is even, unlabored, Respiratory pattern is regular, symmetrical, Breath sounds are clear bilaterally. GI: Abdomen is obese, Bowel sounds present X 4 quads. Reports nausea. Derm: Skin is pink, warm & dry. Musculoskeletal: Range of motion intact in all extremities. 22:36 General: Appears in no apparent distress, comfortable, Behavior is appropriate for age, nn1 cooperative. Cardiovascular: Rhythm is atrial fibrillation Chest pain is denied. Respiratory: Airway is patent Respiratory effort is even, unlabored, Respiratory pattern is regular, symmetrical. 23:57 General: Warm blanket applied, hospitalist at bedside. . Neurological: Level of nn1 Consciousness is awake, alert, obeys commands, Oriented to person, place, time. Cardiovascular: Rhythm is atrial fibrillation Chest pain is denied. Respiratory: Airway is patent Respiratory effort is even, unlabored, Respiratory pattern is regular, symmetrical. 08/31 00:00 Pain: Denies pain. nn1 01:02 General: Patient moved to hospital bed, report given to Adalberto Chan RN. . nn1 Neurological: Level of Consciousness is awake, alert, obeys commands, Oriented to person, place, time, Moves all extremities. Weakness in left hand's). Respiratory: Airway is patent Respiratory effort is even, unlabored, Respiratory pattern is regular, symmetrical. Derm: Skin is pink, warm & dry. 02:25 Cardiovascular: Rhythm is atrial fibrillation with rapid ventricular response. jul 06:27 Cardiovascular: Rhythm is atrial fibrillation with rapid ventricular response. jul Vital Signs: 08/30 20:42 BP 116 / 66; Pulse 100; Resp 18 S; Temp 96.1(O); Pulse Ox 98% ; Weight 102.06 kg (R); gr2 Height 5 ft. 3 in. (160.02 cm) (R); Pain 2/10; 22:00 BP 130 / 86 (auto/); nn1 22:00 Pulse 114 MON; Pulse Ox 95% ; nn1 22:39 BP 142 / 58 (auto/); nn1 22:39 Pulse 96 MON; Pulse Ox 93% ; nn1 22:54 BP 129 / 60 (auto/); nn1 22:54 Pulse 94 MON; Pulse Ox 94% ; nn1 23:09 BP 125 / 58 (auto/); nn1 23:09 Pulse 98 MON; Pulse Ox 94% ; nn1 23:24 BP 140 / 63 (auto/); nn1 23:25 Pulse 96 MON; Pulse Ox 92% ; nn1 23:30 Pulse 110 MON; Pulse Ox 97% ; nn1 23:39 BP 141 / 63 (auto/); nn1 23:39 Pulse 110 MON; Pulse Ox 96% ; nn1 23:51 Pulse 110 MON; Pulse Ox 94% ; nn1 23:54 BP 128 / 58 (auto/); nn1 23:54 Pulse 118 MON; Pulse Ox 93% ; nn1 23:59 Resp 18; Temp 96.5(O); Pain 0/10; nn1 08/31 00:09 BP 124 / 63 (auto/); nn1 00:09 Pulse 110 MON; Pulse Ox 96% ; nn1 00:24 BP 130 / 60 (auto/); nn1 00:24 Pulse 112 MON; Pulse Ox 94% ; nn1 00:39 BP 126 / 59 (auto/); nn1 00:39 Pulse 100 MON; Pulse Ox 94% ; nn1 02 20:42 Body Mass Index 39.86 (102.06 kg, 160.02 cm) gr2 Vitals: 08/30 20:42 Log In Time: August 30, 2016 at 20:42. RN notified that patient meets Red Flag gr2 criteria. ED Course: 20:41 Patient visited by Fercho Antonio. gr2 20:41 Siddharth Peace MD is Private Physician. gr2 20:41 Patient moved to Waiting gr2 20:47 Patient visited by Fercho Antonio. gr2 20:49 Ngoc BolandRN is Primary Nurse. ko2 20:49 Patient moved to 12 ko2 20:52 Triage Initiated jjr 20:56 Flakita Cali FNP is PHCP. le 21:07 Patient visited by Flakita Cali FNP. le 21:07 Patient visited by Flakita Cali FNP. le 21:12 EKG done. (by ED staff). Reviewed by Flakita OAKLEY. lr2 21:33 Patient moved to Radiology tmb 21:34 Prothrombin Time Profile\E\INR Sent. nn1 21:34 Partial Thromboplastin Time Sent. nn1 21:34 CBC with Diff Sent. nn1 21:34 Basic Metabolic Profile Sent. nn1 21:42 Inserted saline lock: 20 gauge in right antecubital area and blood collected. The nn1 patient tolerated the procedure well. 22:01 Patient moved to 12 tmb 22:04 Patient visited by Abbey Fu PCA. ar3 22:20 [facility] Payment Agreement was scanned into [employer] and attached to record. zo 23:02 Lane Fitzgerald is Hospitalizing Provider. le 08/31 00:28 Patient moved to Admit Hold deacon 01:03 Umm Rodriguez,ZAHEER is Primary Nurse. nn1 01:03 Patient moved to 20 nn1 01:08 Patient moved to Admit Hold ml3 03:18 Primary Nurse role handed off by Ngoc Boland,ZAHEER kb5 03:18 Primary Nurse role handed off by Umm Rodriguez,ZAHEER kb5 07:07 Tyshawn Malloy MD is Attending Physician. pc 08:06 Chest, 2 View (pa\E\lat) Returned. EDMS 08:40 ELECTROCARDIOGRAM ADULT Returned. EDMS 15:33 T-Sheet-- Draft Copy was scanned into [employer] and attached to record. gb 15:33 ECG/EKG was scanned into [employer] and attached to record. gb 15:33 Trend VS was scanned into [employer] and attached to record. gb Administered Medications: 08/30 21:42 Drug: NS 0.9% 500 ml [sodium chloride 0.9 % intravenous solution] Route: IV; Rate: nn1 bolus; Site: right antecubital; 23:13 Follow up: IV Status: Completed infusion; IV Intake: 500ml nn1 21:42 Drug: Aspirin 81 mg [aspirin 81 mg chewable tablet (1 tabs)] Route: PO; nn1 Attachments: 15:33 Trend VS gb Intake: 08/30 23:13 IV: 500.00ml; Total: 500.00ml. nn1 Order Results: Lab Order: Basic Metabolic Profile; [facility] 08/30/16 21:15 Test: GLUCOSE, FASTING; Value: 125; Range: 83-110; Abnormal: Above high normal; Units: MG/DL; Status: F Test: BLOOD UREA NITROGEN; Value: 18; Range: 7-18; Units: MG/DL; Status: F Test: CREATININE FOR GFR; Value: 0.88; Range: 0.55-1.02; Units: MG/DL; Status: F Test: GLOMERULAR FILTRATION RATE; Value: > 60.0; Range: >39; Status: F Test: SODIUM LEVEL; Value: 145; Range: 136-145; Units: MEQ/L; Status: F Test: POTASSIUM SERUM; Value: 3.4; Range: 3.5-5.1; Abnormal: Below low normal; Units: MEQ/L; Status: F Test: CHLORIDE LEVEL; Value: 108; Range: 98-107; Abnormal: Above high normal; Units: MEQ/L; Status: F Test: CARBON DIOXIDE LEVEL; Value: 31; Range: 21-32; Units: MEQ/L; Status: F Test: ANION GAP; Value: 6; Range: 8-16; Abnormal: Below low normal; Units: MEQ/L; Status: F Test: CALCIUM LEVEL; Value: 8.9; Range: 8.8-10.2; Units: MG/DL; Status: F Test Note: ; Units are mL/min/1.73 m2 Chronic Kidney Disease Staging per NKF: Stage I & II GFR >=60 Normal to Mildly Decreased Stage III GFR 30-59 Moderately Decreased Stage IV GFR 15-29 Severely Decreased Stage V GFR <15 Very Little GFR Left ESRD GFR <15 on LOCK TECHNICIAN Lab Order: CBC with Diff; SPEC'M 08/30/16 21:15 Test: WHITE BLOOD COUNT; Value: 8.9; Range: 4.0-10.0; Units: K/mm3; Status: F Test: RED BLOOD COUNT; Value: 4.67; Range: 4.00-5.40; Units: M/mm3; Status: F Test: HEMOGLOBIN; Value: 14.2; Range: 12.0-16.0; Units: g/dl; Status: F Test: HEMATOCRIT; Value: 43.0; Range: 36.0-47.0; Units: %; Status: F Test: MEAN CORPUSCULAR VOLUME; Value: 92.0; Range: 80.0-96.0; Units: fl; Status: F Test: MEAN CORPUSCULAR HEMOGLOBIN; Value: 30.4; Range: 27.0-33.0; Units: pg; Status: F Test: MEAN CORPUSCULAR HGB CONC; Value: 33.0; Range: 32.0-36.5; Units: g/dl; Status: F Test: RED CELL DISTRIBUTION WIDTH; Value: 15.0; Range: 11.5-14.5; Abnormal: Above high normal; Units: %; Status: F Test: PLATELET COUNT, AUTOMATED; Value: 222; Range: 150-450; Units: k/mm3; Status: F Test: NEUTROPHILS %; Value: 79.3; Range: 36.0-66.0; Abnormal: Above high normal; Units: %; Status: F Test: LYMPH %; Value: 13.4; Range: 24.0-44.0; Abnormal: Below low normal; Units: %; Status: F Test: MONO %; Value: 5.2; Range: 0.0-5.0; Abnormal: Above high normal; Units: %; Status: F Test: EOS %; Value: 0.8; Range: 0.0-3.0; Units: %; Status: F Test: BASO %; Value: 0.2; Range: 0.0-1.0; Units: %; Status: F Test: LARGE UNSTAINED CELL %; Value: 1.2; Range: 0.0-4.0; Units: %; Status: F Test: NEUTROPHILS #; Value: 7.1; Range: 1.8-7.7; Units: K/mm3; Status: F Test: LYMPH #; Value: 1.3; Range: 1.5-4.5; Abnormal: Below low normal; Units: K/mm3; Status: F Test: MONO #; Value: 0.5; Range: 0.0-0.8; Units: K/mm3; Status: F Test: EOS #; Value: 0.1; Range: 0.0-0.50; Units: K/mm3; Status: F Test: BASO #; Value: 0.0; Range: 0.0-0.2; Units: K/mm3; Status: F Test: LARGE UNSTAINED CELL #; Value: 0.1; Range: 0.0-0.4; Units: K/mm3; Status: F Lab Order: Partial Thromboplastin Time; [facility] 08/30/16 21:15 Test: PARTIAL THROMBOPLASTIN TIME; Value: 29.7; Range: 26.6-37.1; Units: SECONDS; Status: F Lab Order: Prothrombin Time Profile\E\INR; [facility] 08/30/16 21:15 Test: PROTHROMBIN TIME; Value: 18.7; Range: 12.3-14.5; Abnormal: Above high normal; Units: SECONDS; Status: F Test: INR; Value: 1.55; Status: F Test Note: ; THERAPUTIC HUMAN INR VALUES INDICATIONS NORMAL RANGES PROPHYLAXIS/TREATMENT OF: VENOUS THROMBOSIS 2.0-3.0 PULMONARY EMBOLISM 2.0-3.0 PREVENTION OF SYSTEMIC EMBOLISM FROM: TISSUE HEART VALVES 2.0-3.0 ACUTE MYOCARDIAL INFARCTION 2.0-3.0 VALVULAR HEART DISEASE 2.0-3.0 ATRIAL FIBRILLATION 2.0-3.0 MECHANICAL VALVES(HIGH RISK) 2.5-3.5 RECURRENT MYOCARDIAL INFARCTION 2.5-3.5 Lab Order: DIGOXIN LEVEL; [facility] 08/30/16 21:15 Test: DIGOXIN LEVEL; Value: 0.7; Range: 0.5-2.0; Units: NG/ML; Status: F Lab Order: FT4&TSH PANEL; SPEC'M 08/30/16 21:15 Test: THYROID STIMULATING HORMONE; Value: 0.725; Range: 0.358-3.740; Units: uIU/ML; Status: F Test: FREE T4; Value: 1.68; Range: 0.76-1.46; Abnormal: Above high normal; Units: NG/DL; Status: F Lab Order: HEMOGLOBIN A1C; SPEC'M 08/31/16 21:15 Test: HEMOGLOBIN A1c; Value: 6.5; Range: 4.5-6.2; Abnormal: Above high normal; Units: %; Status: F Test: ESTIMATED AVERAGE GLUCOSE; Value: 140; Range: 60-110; Abnormal: Above high normal; Units: MG/DL; Status: F Radiology Order: ELECTROCARDIOGRAM ADULT Test: ELECTROCARDIOGRAM ADULT REASON FOR EXAMINATION: CVA >4.5hrs; Stationary ECG Study; [facility] - ED; ; Test Date: 2016-08-30; Pat Name: COURTNEY PARK Department:; Room: [place] [address]; 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:; : 1945 Requested By: FLAKITA OAKLEY; Order Number: [id number] Reading MD: Nataliya Gooden; Measurements; Intervals Fox; Rate: 119 P:; NE: 0 QRS: 1; QRSD: 86 T: 209; QT: 285; QTc: 402; Interpretive Statements; ATRIAL FIBRILLATION WITH RAPID VENTRICULAR RESPONSE; MODERATE VOLTAGE CRITERIA FOR LVH, CONSIDER NORMAL VARIANT; INFERIOR MYOCARDIAL INFARCTION, OF INDETERMINATE AGE; ST DEVIATION AND MODERATE T-WAVE ABNORMALITY, CONSIDER ANTEROLATERAL ISCHEMIA; PRIOR NSR 08/03/12; Electronically Signed On 08-31-2016 8:12:06 EST by Nataliya Gooden; Radiology Order: Chest, 2 View (pa\E\lat) Test: Chest, 2 View (pa\E\lat) REASON FOR EXAMINATION: CVA >4.5hrs; Clinical: Cerebrovascular accident .; ; Comparison: 08/03/2012 .; ; Technique: PA and lateral.; ; Findings:; The mediastinum and cardiac silhouette are normal. The lung hodges are clear and; without acute consolidation, effusion, or pneumothorax. The skeletal structures; are intact and normal.; ; Impression:; 1. No acute cardiopulmonary process.; ; ; Signed by; Yaya Ortiz MD 08/31/2016 07:45 A; Outcome: 23:02 Decision to Hospitalize by Provider. le 08/31 12:34 Patient left the ED. kcs Signatures: Dispatcher [employer] EDMS Tyshawn Malloy MD MD pc Sleeman, Kacey, RN RN finesse Freeman, Maxine Rahman RN ZAHEER Branch, Rahel, Reg Reg gb Michael, JazzAceTosha, Paving Inspector Unit ml3 Sean Coppola Kristopher, RESPIRATORY DIRECTOR RESPIRATORY DIRECTOR kb5 Flakita Cali, TECHNICAL MARKETING CONSULTANT TECHNICAL MARKETING CONSULTANT Shannon Robison, RN RN Abbey Musa, RESPIRATORY DIRECTOR RESPIRATORY DIRECTOR ar3 Fercho Antonio gr2 Be Reeves Kari,RN RN ko2 John ValentinRN RN nn1 Celine Hatch2 Chart Complete MTDD
--- NOTE | 2016-09-02 13:35 | EDDOCDS ---
Physician Documentation [facility] Name: Courtney Torres Age: 71 yrs Sex: Female : 1945 Arrival Date: 08/30/2016 Time: 20:40 Bed Admit Hold Private MD: Siddharth Peace Disposition: 08/30/16 23:[address] Fitzgerald for Observation. Preliminary diagnosis is Cerebral infarction. - Bed requested for PCU. - Status is Observation. kcs - Condition is Stable. - Problem is an acute exacerbation. - Symptoms are unchanged. Historical: - Allergies: SULFA (SULFONAMIDES) (Hives); - Home Meds: 1. levothyroxine 100 mcg Oral cap 1 cap once daily 2. Lanoxin 125 mcg oral tab once daily 3. Lopressor 50 mg Oral tab 1 tab 3 times per day 4. Xarelto 20 mg oral tab 1 tab once daily 5. atorvastatin 40 mg oral tab 1 tab once daily 6. omeprazole 40 mg Oral cpDR 1 cap once daily 7. melatonin 10 mg Oral TbDL nightly 8. Calcium + Vitamin D 600 mg calcium- 200 unit Oral tab daily 9. Vitamin D3 2,000 unit oral cap daily 10. glucosamine-chondroitin Unknown oral twice a day 11. Restasis 0.05 % ophthalmic dpet 1 drop 2 times per day - PMHx: CVA; Hypertension; Hypercholesterolemia; Hypothyroidism; GERD; - PSHx: bilateral knee replacement; right ankle fx with hardware; - Social history: Smoking status: Patient states was never smoker of tobacco. No barriers to communication noted, The patient speaks fluent Maori. - : The pt / caregiver states he / she is on anticoagulants: Xarelto Home medication list is obtained from the patient. - Exposure Risk Screening:: None identified. Vital Signs: 08/30 20:42 BP 116 / 66; Pulse 100; Resp 18 S; Temp 96.1(O); Pulse Ox 98% ; Weight 102.06 kg / 225 gr2 lbs (R); Height 5 ft. 3 in. (160.02 cm) (R); Pain 2/10; 22:00 BP 130 / 86 (auto/); nn1 22:00 Pulse 114 MON; Pulse Ox 95% ; nn1 22:39 BP 142 / 58 (auto/); nn1 22:39 Pulse 96 MON; Pulse Ox 93% ; nn1 22:54 BP 129 / 60 (auto/); nn1 22:54 Pulse 94 MON; Pulse Ox 94% ; nn1 23:09 BP 125 / 58 (auto/); nn1 23:09 Pulse 98 MON; Pulse Ox 94% ; nn1 23:24 BP 140 / 63 (auto/); nn1 23:25 Pulse 96 MON; Pulse Ox 92% ; nn1 23:30 Pulse 110 MON; Pulse Ox 97% ; nn1 23:39 BP 141 / 63 (auto/); nn1 23:39 Pulse 110 MON; Pulse Ox 96% ; nn1 23:51 Pulse 110 MON; Pulse Ox 94% ; nn1 23:54 BP 128 / 58 (auto/); nn1 23:54 Pulse 118 MON; Pulse Ox 93% ; nn1 23:59 Resp 18; Temp 96.5(O); Pain 0/10; nn1 08/31 00:09 BP 124 / 63 (auto/); nn1 00:09 Pulse 110 MON; Pulse Ox 96% ; nn1 00:24 BP 130 / 60 (auto/); nn1 00:24 Pulse 112 MON; Pulse Ox 94% ; nn1 00:39 BP 126 / 59 (auto/); nn1 00:39 Pulse 100 MON; Pulse Ox 94% ; nn1 08/30 20:42 Body Mass Index 39.86 (102.06 kg, 160.02 cm) gr2 MDM: 08/30 21:05 Cement Boat And Barge Loader/Pulse Ox/q 15 min VS ordered. le 21:05 IV Saline Lock ordered. le 21:05 Rhythm Strip to chart ordered. le 21:07 Basic Metabolic Profile Ordered. EDMS 21:07 CBC with Diff Ordered. EDMS 21:07 Partial Thromboplastin Time Ordered. EDMS 21:07 Prothrombin Time Profile\E\INR Ordered. EDMS 21:08 Chest, 2 View (pa\E\lat) Ordered. EDMS 21:08 ECG WITH READING ER PHYS+CARDIAG ordered. EDMS 21:08 BED REQUEST+ADM ordered. EDMS 21:18 NS 0.9% 500 ml IV at bolus once ordered. le 21:23 Aspirin Chewable Tablet 81 mg PO once ordered. le 22:11 Financial registration complete. zo 22:20 [facility] [place] was scanned into [employer] and attached to record. zo 22:37 Basic Metabolic Profile Reviewed. le 22:37 Prothrombin Time Profile\E\INR Reviewed. le 22:37 Partial Thromboplastin Time Reviewed. le 23:20 CBC with Diff Reviewed. le 23:38 DIGOXIN LEVEL Ordered. EDMS 23:38 FT4&TSH PANEL Ordered. EDMS 08/31 00:13 PHYSICAL THERAPY EVAL & TREAT ordered. EDMS 00:14 Admission / Observation Status ordered. EDMS 00:14 CONSISTENT CARBOHYDRATES ordered. EDMS 07:20 HEMOGLOBIN A1C Ordered. EDMS 15:33 T-Sheet-- Draft Copy was scanned into [employer] and attached to record. gb 15:33 ECG/EKG was scanned into [employer] and attached to record. gb 15:33 Trend VS was scanned into [employer] and attached to record. gb Administered Medications: 08/30 21:42 Drug: NS 0.9% 500 ml [sodium chloride 0.9 % intravenous solution] Route: IV; Rate: nn1 bolus; Site: right antecubital; 23:13 Follow up: IV Status: Completed infusion; IV Intake: 500ml nn1 21:42 Drug: Aspirin 81 mg [aspirin 81 mg chewable tablet (1 tabs)] Route: PO; nn1 Signatures: Dispatcher [employer] EDAZ Irene Verma, RN RN Rahel Kapoor, Sean Holm Lisa, INSTALLER INTERIOR ASSEMBLIES INSTALLER INTERIOR ASSEMBLIES Shannon Robison, RN Jack Thomas RN RN mts Nunez, Nikkole RN nn1 The chart was reviewed and I authenticate all verbal orders and agree with the evaluation and treatment provided.Corrections: (The following items were deleted from the chart) 23:39 22:38 DIGOXIN LEVEL+LAB ordered. EDAZ EDMS 23:39 22:38 FT4&TSH PANEL+LAB ordered. EDAZ EDMS 08/31 07:20 01:10 HEMOGLOBIN A1C ordered. EDAZ EDMS Attachments: 08/30 22:20 [facility] [place] Agreement zo 08/31 15:33 T-Sheet-- Draft Copy gb 15:33 ECG/EKG gb Chart Complete MTDD
--- NOTE | 2016-09-02 13:42 | IPNPDOC ---
Text Note Date of Service The patient was seen on 09/02/16. NOTE Subjective: Patient is a 71 year old female with a PMHx of HTN, DLP, A. Fib (on xarelto), Hypothyroidism and recent R sided CVA (s/p tPA on 06/28/16 at [facility] ) who presented to the ER after patient went to Dr. Perez complaining of worsening left sided weakness. She noted that she had similar symptoms in 2015, but was improving at home. She then had acute worsening and had an MRI which revealed a new CVA. She was admitted to PCU for new CVA. Patient had her metoprolol stopped in the ER and went into a.fib with RVR. She has been on digoxin as an outpatient and after discussion with Neurology and Cardiology, we will attempt to get HR controlled with verapamil to avoiding dropping SBP. Patient was seen and examined at the bedside. She is concerned that she is not on a regular diet. She has no additional complaints. Objective: Vitals (See below) General: Lying in bed, no acute distress, comfortable, AAOx3 HEENT: NC, AT CVS: Irregularly irregular, +S1S2 Lungs: Fair air entry b/l, -w/r/r Abdomen: Soft, ND, NT, +BSx4 Extremities: -Edema, -Calf tenderness Neuro: CN 2-12 grossly intact, left UE of 4/5, left LE 4/5, right U/LE of 5/5 Assessment and plan: 1. Left sided weakness - likely 2/2 acute CVA - Presented with worsening left sided weakness with recent history of stroke in 06/2016 - Physical with focal weakness on left side - MRI with new acute infarction - c/w Neuro checks - Physical therapy; recommended home with services - - c/w Xarelto, atorvastatin and ASA 81 - Neurology consulted (Dr. Perez) following - appreciate their input 2. Atrial fibrillation with RVR - likely 2/2 stopping metoprolol - patient remains completely asymptomatic and hemodynamically stable - c/w digoxin from home - Digoxin level adequate - Will increase frequency of verapamil from QD to BID for better consistent rate control - c/w anticoagulation with Xarelto 3. HTN - Will hold metoprolol for now - Goal of SBP of 130-180s 4. DLP - c/w atorvastatin 5. Hypothyroidism - c/w levothyroxine 6. DVT prophylaxis - on full anticoagulation with Xarelto Disposition: - Once heart rate is well controlled will continue with physical therapy / rehabilitation VS,Aravind, I+O VS, Aravind, I+O Laboratory Tests 09/02/16 05:25 Calcium Level 8.6 L, Red Blood Count 4.19, Mean Corpuscular Volume 92.3, Mean Corpuscular Hemoglobin 30.4, Mean Corpuscular Hemoglobin Concent 33.0, Red Cell Distribution Width 15.0 H Vital Signs Date Time Temp Pulse Resp B/P Pulse Ox O2 Delivery O2 Flow Rate FiO2 09/02/16 12:00 96.7 110 20 146/59 98 Room Air 08/31/16 08:30 1.0 I&O- Last 24 Hours up to 6 AM 09/02/16 06:00 Intake Total 1950 ml Output Total 400 ml Balance 1550 ml RADHA HENRY MD Sep 02, 2016 13:42
[2016-09-02 16:00] VITALS: BP 133/97
[2016-09-02] MEDS ORDERED: VERAPAMIL 120 MG SR TAB As Ordered ONE (18:14)
[2016-09-02 20:00] VITALS: BP 151/84
[2016-09-02] MEDS ORDERED: VERAPAMIL 120 MG SR TAB PO SCH (21:00)
[2016-09-03] VITALS (7 sets, daily range): BP systolic 106–148; BP diastolic 50–86
[2016-09-03] MEDS: LEVOTHYROXINE 0.1 MG TAB (100 MCG) PO SCH (05:04)
[2016-09-03 05:44] LABS: MEAN CORPUSCULAR HEMOGLOBIN 30.5 pg (27.0-33.0); MEAN CORPUSCULAR HGB CONC 33.2 g/dl (32.0-36.5); MEAN CORPUSCULAR VOLUME 91.9 fl (80.0-96.0); RED CELL DISTRIBUTION WIDTH 15.1 % (11.5-14.5); WHITE BLOOD COUNT 6.6 K/mm3 (4.0-10.0)
[2016-09-03 06:00] LABS: ANION GAP 9 MEQ/L (8-16); BLOOD UREA NITROGEN 8 MG/DL (7-18); CALCIUM LEVEL 9.1 MG/DL (8.8-10.2); CARBON DIOXIDE LEVEL 29 MEQ/L (21-32); CHLORIDE LEVEL 109 MEQ/L (98-107); CREATININE FOR GFR 0.62 MG/DL (0.55-1.02); GLOMERULAR FILTRATION RATE > 60.0 (>39); GLUCOSE, FASTING 109 MG/DL (83-110); POTASSIUM SERUM 3.9 MEQ/L (3.5-5.1); SODIUM LEVEL 147 MEQ/L (136-145)
[2016-09-03] MEDS ORDERED: VERAPAMIL 180 MG SR TAB PO SCH (09:00)
[2016-09-03] MEDS: ASPIRIN 81 MG ENTERIC TAB PO SCH (09:31)
[2016-09-03] MEDS: ATORVASTATIN 20 MG TAB PO SCH (09:31)
[2016-09-03] MEDS: MULTIVITAMINS/MINERALS THERAP 1 TAB PO SCH (09:31)
[2016-09-03] MEDS: DIGOXIN 0.125 MG TAB PO SCH (09:31)
[2016-09-03] MEDS: VITAMIN D 1,000 INTERNATIONAL UNITS TABLET PO SCH (09:31)
[2016-09-03] MEDS: RIVAROXABAN 20 MG TAB (XARELTO) PO SCH (09:32)
--- NOTE | 2016-09-03 13:22 | IPNPDOC ---
Text Note Date of Service The patient was seen on 09/03/16. NOTE Subjective: Patient is a 71 year old female with a PMHx of HTN, DLP, A. Fib (on xarelto), Hypothyroidism and recent R sided CVA (s/p tPA on 06/28/16 at [facility] ) who presented to the ER after patient went to Dr. Perez complaining of worsening left sided weakness. She noted that she had similar symptoms in 2015, but was improving at home. She then had acute worsening and had an MRI which revealed a new CVA. She was admitted to PCU for new CVA. Patient had her metoprolol stopped in the ER and went into a.fib with RVR. She has been on digoxin as an outpatient and after discussion with Neurology and Cardiology, we will attempt to get HR controlled with verapamil to avoiding dropping SBP. Patient was seen and examined at the bedside. She does not have any new complaints today. Objective: Vitals (See below) General: Lying in bed, no acute distress, comfortable, AAOx3 HEENT: NC, AT CVS: RRR, +S1S2 Lungs: Fair air entry b/l, -w/r/r Abdomen: Soft, ND, NT, +BSx4 Extremities: -Edema, -Calf tenderness Neuro: CN 2-12 grossly intact, left UE of 4/5, left LE 4/5, right U/LE of 5/5 Assessment and plan: 1. Left sided weakness - likely 2/2 acute CVA - Presented with worsening left sided weakness with recent history of stroke in 06/2016 - Physical with focal weakness on left side - MRI with new acute infarction - c/w Neuro checks - Physical therapy; recommended home with services - c/w Xarelto, atorvastatin and ASA 81 - Neurology consulted (Dr. Perez) following - appreciate their input 2. Atrial fibrillation with RVR - likely 2/2 stopping metoprolol - patient remains completely asymptomatic and hemodynamically stable - c/w digoxin from home - Digoxin level adequate - Will increase dose of verapamil to 240 BID - c/w anticoagulation with Xarelto - Will discuss case with patient's bread wrapper 3. HTN - s/p Metoprolol as outpatient - Goal of SBP of 130-180s 4. DLP - c/w atorvastatin 5. Hypothyroidism - c/w levothyroxine 6. DVT prophylaxis - on full anticoagulation with Xarelto Disposition: - Will get HR better optimized VS,Fishbone, I+O VS, Fishbone, I+O Laboratory Tests 09/03/16 04:55 Calcium Level 9.1, Red Blood Count 4.33, Mean Corpuscular Volume 91.9, Mean Corpuscular Hemoglobin 30.5, Mean Corpuscular Hemoglobin Concent 33.2, Red Cell Distribution Width 15.1 H Vital Signs Date Time Temp Pulse Resp B/P Pulse Ox O2 Delivery O2 Flow Rate FiO2 09/03/16 09:32 140 146/85 09/03/16 08:00 Room Air 09/03/16 07:35 97.5 18 96 08/31/16 08:30 1.0 I&O- Last 24 Hours up to 6 AM 09/03/16 06:00 Intake Total 1290 ml Output Total 660 ml Balance 630 ml RADHA HENRY MD Sep 03, 2016 13:22
[2016-09-03] MEDS: VERAPAMIL 120 MG SR TAB PO SCH (21:40)
[2016-09-04 05:05] VITALS: BP 139/80
[2016-09-04] MEDS: LEVOTHYROXINE 0.1 MG TAB (100 MCG) PO SCH (05:16)
[2016-09-04 05:18] LABS: MEAN CORPUSCULAR HEMOGLOBIN 30.5 pg (27.0-33.0); MEAN CORPUSCULAR HGB CONC 33.4 g/dl (32.0-36.5); MEAN CORPUSCULAR VOLUME 91.3 fl (80.0-96.0)
[2016-09-04 05:25] LABS: ANION GAP 9 MEQ/L (8-16); BLOOD UREA NITROGEN 11 MG/DL (7-18); CALCIUM LEVEL 8.8 MG/DL (8.8-10.2); CARBON DIOXIDE LEVEL 30 MEQ/L (21-32); CHLORIDE LEVEL 107 MEQ/L (98-107); CREATININE FOR GFR 0.61 MG/DL (0.55-1.02); GLOMERULAR FILTRATION RATE > 60.0 (>39); GLUCOSE, FASTING 111 MG/DL (83-110); POTASSIUM SERUM 3.6 MEQ/L (3.5-5.1); SODIUM LEVEL 146 MEQ/L (136-145)
[2016-09-04 08:00] VITALS: BP 135/78
[2016-09-04] MEDS: VERAPAMIL 120 MG SR TAB PO SCH ×2 (09:16→21:12)
[2016-09-04] MEDS: DIGOXIN 0.125 MG TAB PO SCH (09:17)
[2016-09-04] MEDS: RIVAROXABAN 20 MG TAB (XARELTO) PO SCH (09:17)
[2016-09-04] MEDS: ASPIRIN 81 MG ENTERIC TAB PO SCH (09:17)
[2016-09-04] MEDS: ATORVASTATIN 20 MG TAB PO SCH (09:17)
[2016-09-04] MEDS: VITAMIN D 1,000 INTERNATIONAL UNITS TABLET PO SCH (09:17)
[2016-09-04] MEDS: MULTIVITAMINS/MINERALS THERAP 1 TAB PO SCH (09:17)
[2016-09-04 12:00] VITALS: BP 133/71
--- NOTE | 2016-09-04 13:01 | IPNPDOC ---
Text Note Date of Service The patient was seen on 09/04/16. NOTE Subjective: Patient is a 71 year old female with a PMHx of HTN, DLP, A. Fib (on xarelto), Hypothyroidism and recent R sided CVA (s/p tPA on 06/28/[address] [facility] ) who presented to the ER after patient went to Dr. Perez complaining of worsening left sided weakness. She noted that she had similar symptoms in 2015, but was improving at home. She then had acute worsening and had an MRI which revealed a new CVA. She was admitted to PCU for new CVA. Patient had her metoprolol stopped in the ER and went into a.fib with RVR. She has been on digoxin as an outpatient and after discussion with Neurology and Cardiology, we will attempt to get HR controlled with verapamil to avoiding dropping SBP. Patient was seen and examined at the bedside. She notes that her evening dose of verapamil was held because of low blood pressure. She notes that every time she ambulates she gets uncontrolled HR. Objective: Vitals (See below) General: Lying in bed, no acute distress, comfortable, AAOx3 HEENT: NC, AT CVS: Irregularly irregular, +S1S2 Lungs: Fair air entry b/l, -w/r/r Abdomen: Soft, ND, NT, +BSx4 Extremities: -Edema, -Calf tenderness Neuro: CN 2-12 grossly intact, left UE of 4/5, left LE 4/5, right U/LE of 5/5 Assessment and plan: 1. Left sided weakness - likely 2/2 acute CVA - Presented with worsening left sided weakness with recent history of stroke in 06/2016 - Physical with focal weakness on left side - now improving - MRI with new acute infarction - c/w Neuro checks - Physical therapy; recommended home with services - c/w Xarelto, Atorvastatin and ASA 81 - Neurology consulted (Dr. Perez) following - appreciate their input 2. Atrial fibrillation with RVR - likely 2/2 stopping metoprolol - patient remains completely asymptomatic and hemodynamically stable - c/w digoxin from home - Digoxin level adequate - c/w verapamil to 240 BID - will need to remain on this dose - c/w anticoagulation with Xarelto - Called patient's stack supervisor - did not want to change medications if he can not evaluate patient; recommend consulting cardiology 3. HTN - s/p Metoprolol as outpatient - Goal of SBP of 130-180s 4. DLP - c/w atorvastatin 5. Hypothyroidism - c/w levothyroxine 6. DVT prophylaxis - on full anticoagulation with Xarelto Disposition: - Will get HR better optimized VS,Fishbone, I+O VS, Fishbone, I+O Laboratory Tests 09/04/16 04:43 Calcium Level 8.8, Red Blood Count 4.22, Mean Corpuscular Volume 91.3, Mean Corpuscular Hemoglobin 30.5, Mean Corpuscular Hemoglobin Concent 33.4, Red Cell Distribution Width 15.0 H Vital Signs Date Time Temp Pulse Resp B/P Pulse Ox O2 Delivery O2 Flow Rate FiO2 09/04/16 12:00 98.3 78 20 133/71 92 Room Air 08/31/16 08:30 1.0 I&O- Last 24 Hours up to 6 AM 09/04/16 06:00 Intake Total 1560 ml Output Total 1375 ml Balance 185 ml RADHA HENRY MD Sep 04, 2016 13:01
[2016-09-04 16:00] VITALS: BP 111/66
[2016-09-04 20:37] VITALS: BP 127/87
[2016-09-04 23:49] VITALS: BP 135/84
[2016-09-05] MEDS: ACETAMINOPHEN TAB 650MG DOSE (2X325MG) PO PRN ×3 (00:40→20:17)
[2016-09-05 05:03] VITALS: BP 144/87
[2016-09-05] MEDS: LEVOTHYROXINE 0.1 MG TAB (100 MCG) PO SCH (05:12)
[2016-09-05 05:37] LABS: MEAN CORPUSCULAR HEMOGLOBIN 30.1 pg (27.0-33.0); MEAN CORPUSCULAR VOLUME 91.2 fl (80.0-96.0); WHITE BLOOD COUNT 7.2 K/mm3 (4.0-10.0)
[2016-09-05 05:49] LABS: ANION GAP 9 MEQ/L (8-16); BLOOD UREA NITROGEN 11 MG/DL (7-18); CALCIUM LEVEL 8.8 MG/DL (8.8-10.2); CARBON DIOXIDE LEVEL 29 MEQ/L (21-32); CHLORIDE LEVEL 107 MEQ/L (98-107); CREATININE FOR GFR 0.62 MG/DL (0.55-1.02); GLOMERULAR FILTRATION RATE > 60.0 (>39); GLUCOSE, FASTING 110 MG/DL (83-110); POTASSIUM SERUM 3.7 MEQ/L (3.5-5.1); SODIUM LEVEL 145 MEQ/L (136-145)
[2016-09-05 07:51] VITALS: BP 140/95
[2016-09-05] MEDS: VERAPAMIL 120 MG SR TAB PO SCH (09:33)
[2016-09-05] MEDS: RIVAROXABAN 20 MG TAB (XARELTO) PO SCH (09:33)
[2016-09-05] MEDS: MULTIVITAMINS/MINERALS THERAP 1 TAB PO SCH (09:33)
[2016-09-05] MEDS: ASPIRIN 81 MG ENTERIC TAB PO SCH (09:33)
[2016-09-05] MEDS: VITAMIN D 1,000 INTERNATIONAL UNITS TABLET PO SCH (09:34)
[2016-09-05] MEDS: ATORVASTATIN 20 MG TAB PO SCH (09:34)
[2016-09-05] MEDS: DIGOXIN 0.125 MG TAB PO SCH (09:34)
[2016-09-05 11:35] VITALS: BP 145/88
--- NOTE | 2016-09-05 14:50 | IPNPDOC ---
Text Note Date of Service The patient was seen on 09/05/16. NOTE Subjective: Patient is a 71 year old female with a PMHx of HTN, DLP, A. Fib (on xarelto), Hypothyroidism and recent R sided CVA (s/p tPA on 06/28/16 at [facility] ) who presented to the ER after patient went to Dr. Perez complaining of worsening left sided weakness. She noted that she had similar symptoms in 2015, but was improving at home. She then had acute worsening and had an MRI which revealed a new CVA. She was admitted to PCU for new CVA. Patient had her metoprolol stopped in the ER and went into a.fib with RVR. She has been on digoxin as an outpatient and after discussion with Neurology and Cardiology, we will attempt to get HR controlled with verapamil to avoiding dropping SBP. Patient was seen and examined at the bedside. She notes that they gave her a reduced dose of medications yesterday evening because of SBP < 130. Objective: Vitals (See below) General: Lying in bed, no acute distress, comfortable, AAOx3 HEENT: NC, AT CVS: Irregularly irregular, +S1S2 Lungs: Fair air entry b/l, -w/r/r Abdomen: Soft, ND, NT, +BSx4 Extremities: -Edema, -Calf tenderness Neuro: CN 2-12 grossly intact, left UE of 4/5, left LE 4/5, right U/LE of 5/5 Assessment and plan: 1. Left sided weakness - likely 2/2 acute CVA - Presented with worsening left sided weakness with recent history of stroke in 06/2016 - Physical with focal weakness on left side - now improving - MRI with new acute infarction - Physical therapy; recommended home with services - c/w Xarelto, Atorvastatin and ASA 81 - Neurology consulted (Dr. Perez) following - appreciate their input 2. Atrial fibrillation with RVR - likely 2/2 stopping metoprolol - patient remains completely asymptomatic and hemodynamically stable - c/w digoxin from home - Digoxin level adequate - c/w anticoagulation with Xarelto - Discussed with Cardiology (Dr. Akers) - advised that amiodarone is not a good choice given risk profile; given that we have safer medications that are effective we should return to that - Will discontinue verapamil; will start Atenolol 50 QHS - will monitor response of BP and HR 3. HTN - s/p Metoprolol as outpatient - Goal of SBP of 130-180s 4. DLP - c/w atorvastatin 5. Hypothyroidism - c/w levothyroxine 6. DVT prophylaxis - on full anticoagulation with Xarelto Disposition: - Will get HR better optimized prior to DC home VS,Fishbone, I+O VS, Fishbone, I+O Laboratory Tests 09/05/16 05:08 Calcium Level 8.8, Red Blood Count 4.21, Mean Corpuscular Volume 91.2, Mean Corpuscular Hemoglobin 30.1, Mean Corpuscular Hemoglobin Concent 33.0, Red Cell Distribution Width 15.0 H Vital Signs Date Time Temp Pulse Resp B/P Pulse Ox O2 Delivery O2 Flow Rate FiO2 09/05/16 11:35 97.8 88 20 145/88 93 Room Air 08/31/16 08:30 1.0 I&O- Last 24 Hours up to 6 AM 09/05/16 06:00 Intake Total 1050 ml Output Total 825 ml Balance 225 ml RADHA HENRY MD Sep 05, 2016 14:45
[2016-09-05 15:45] VITALS: BP 114/64
[2016-09-05 19:48] VITALS: BP 123/60
[2016-09-05] MEDS: ATENOLOL 50 MG TAB PO SCH (20:17)
[2016-09-05 23:09] VITALS: BP 111/69
[2016-09-06 03:53] VITALS: BP 125/89
[2016-09-06] MEDS: LEVOTHYROXINE 0.1 MG TAB (100 MCG) PO SCH (04:56)
[2016-09-06 05:30] LABS: MEAN CORPUSCULAR HEMOGLOBIN 30.1 pg (27.0-33.0); MEAN CORPUSCULAR HGB CONC 32.8 g/dl (32.0-36.5); RED CELL DISTRIBUTION WIDTH 15.1 % (11.5-14.5); WHITE BLOOD COUNT 6.4 K/mm3 (4.0-10.0)
[2016-09-06 05:53] LABS: ANION GAP 8 MEQ/L (8-16); BLOOD UREA NITROGEN 12 MG/DL (7-18); CALCIUM LEVEL 8.8 MG/DL (8.8-10.2); CARBON DIOXIDE LEVEL 31 MEQ/L (21-32); CHLORIDE LEVEL 108 MEQ/L (98-107); CREATININE FOR GFR 0.72 MG/DL (0.55-1.02); GLOMERULAR FILTRATION RATE > 60.0 (>39); GLUCOSE, FASTING 107 MG/DL (83-110); SODIUM LEVEL 147 MEQ/L (136-145)
[2016-09-06 08:00] VITALS: BP 133/92
[2016-09-06] MEDS: VITAMIN D 1,000 INTERNATIONAL UNITS TABLET PO SCH (09:36)
[2016-09-06] MEDS: DIGOXIN 0.125 MG TAB PO SCH (09:37)
[2016-09-06] MEDS: ASPIRIN 81 MG ENTERIC TAB PO SCH (09:37)
[2016-09-06] MEDS: ATORVASTATIN 20 MG TAB PO SCH (09:37)
[2016-09-06] MEDS: MULTIVITAMINS/MINERALS THERAP 1 TAB PO SCH (09:37)
[2016-09-06] MEDS: RIVAROXABAN 20 MG TAB (XARELTO) PO SCH (09:37)
[2016-09-06 12:00] VITALS: BP 124/90
--- NOTE | 2016-09-06 13:34 | IPNPDOC ---
Text Note Date of Service The patient was seen on 09/06/16. NOTE Subjective: Patient is a 71 year old female with a PMHx of HTN, DLP, A. Fib (on xarelto), Hypothyroidism and recent R sided CVA (s/p tPA on 06/28/16 at [facility] ) who presented to the ER after patient went to Dr. Perez complaining of worsening left sided weakness. She noted that she had similar symptoms in 2015, but was improving at home. She then had acute worsening and had an MRI which revealed a new CVA. She was admitted to PCU for new CVA. Patient was seen and examined at the bedside. She notes that her HR has been better controlled with Atenolol Objective: Vitals (See below) General: Lying in bed, no acute distress, comfortable, AAOx3 HEENT: NC, AT CVS: Irregularly irregular, +S1S2 Lungs: Fair air entry b/l, -w/r/r Abdomen: Soft, ND, NT, +BSx4 Extremities: -Edema, -Calf tenderness Neuro: CN 2-12 grossly intact, left UE of 4/5, left LE 4/5, right U/LE of 5/5 Assessment and plan: 1. Left sided weakness - likely 2/2 acute CVA - Presented with worsening left sided weakness with recent history of stroke in 06/2016 - Physical with focal weakness on left side - now improving - MRI with new acute infarction - c/w Xarelto, Atorvastatin and ASA 81 - Neurology consulted (Dr. Perez) following - appreciate their input - Physical therapy; recommended home with services; will continue today - possible re-evaluation for inpatient rehabilitation 2. Atrial fibrillation with RVR - likely 2/2 stopping metoprolol - patient remains completely asymptomatic and hemodynamically stable - c/w digoxin from home - Digoxin level adequate - c/w anticoagulation with Xarelto - HR remains well controlled with Atenolol; BP remains in systolics of 120s - Discussed with Cardiology (Dr. Akers) - not considered to be low; avoid amiodarone / other medication which are not benign / higher risk, given safer effective medications 3. s/p HTN - s/p Metoprolol as outpatient 4. DLP - c/w atorvastatin 5. Hypothyroidism - c/w levothyroxine 6. DVT prophylaxis - on full anticoagulation with Xarelto Disposition: - Today is the first day her HR is well controlled; will evaluate to see how she does during ambulation - will DC tomorrow based on PT recommendations VS,Shakae, I+O VS, Tomaszbone, I+O Laboratory Tests 09/06/16 04:51 Calcium Level 8.8, Red Blood Count 4.27, Mean Corpuscular Volume 92.0, Mean Corpuscular Hemoglobin 30.1, Mean Corpuscular Hemoglobin Concent 32.8, Red Cell Distribution Width 15.1 H Vital Signs Date Time Temp Pulse Resp B/P Pulse Ox O2 Delivery O2 Flow Rate FiO2 09/06/16 12:00 97.9 63 18 124/90 96 Room Air 08/31/16 08:30 1.0 I&O- Last 24 Hours up to 6 AM 09/06/16 06:00 Intake Total 780 ml Output Total 1400 ml Balance -620 ml RADHA HENRY MD Sep 06, 2016 13:34
[2016-09-06 16:00] VITALS: BP 124/80
[2016-09-06 19:38] VITALS: BP 139/77
[2016-09-06] MEDS: ATENOLOL 50 MG TAB PO SCH (20:31)
[2016-09-07] VITALS: BP 135/81
[2016-09-07 04:00] VITALS: BP 143/80
[2016-09-07 05:25] LABS: MEAN CORPUSCULAR HEMOGLOBIN 30.5 pg (27.0-33.0); MEAN CORPUSCULAR HGB CONC 33.4 g/dl (32.0-36.5); MEAN CORPUSCULAR VOLUME 91.1 fl (80.0-96.0); RED CELL DISTRIBUTION WIDTH 14.6 % (11.5-14.5); WHITE BLOOD COUNT 7.1 K/mm3 (4.0-10.0)
[2016-09-07 05:51] LABS: ANION GAP 9 MEQ/L (8-16); BLOOD UREA NITROGEN 12 MG/DL (7-18); CARBON DIOXIDE LEVEL 27 MEQ/L (21-32); CHLORIDE LEVEL 107 MEQ/L (98-107); CREATININE FOR GFR 0.67 MG/DL (0.55-1.02); GLOMERULAR FILTRATION RATE > 60.0 (>39); GLUCOSE, FASTING 105 MG/DL (83-110); POTASSIUM SERUM 4.2 MEQ/L (3.5-5.1); SODIUM LEVEL 143 MEQ/L (136-145)
[2016-09-07] MEDS: LEVOTHYROXINE 0.1 MG TAB (100 MCG) PO SCH (06:41)
[2016-09-07 08:00] VITALS: BP 131/77
[2016-09-07] MEDS: RIVAROXABAN 20 MG TAB (XARELTO) PO SCH (09:19)
[2016-09-07] MEDS: ASPIRIN 81 MG ENTERIC TAB PO SCH (09:19)
[2016-09-07] MEDS: VITAMIN D 1,000 INTERNATIONAL UNITS TABLET PO SCH (09:19)
[2016-09-07] MEDS: MULTIVITAMINS/MINERALS THERAP 1 TAB PO SCH (09:19)
[2016-09-07] MEDS: ATORVASTATIN 20 MG TAB PO SCH (09:19)
[2016-09-07] MEDS: DIGOXIN 0.125 MG TAB PO SCH (09:19)
[2016-09-07 12:00] VITALS: BP 140/83
[2016-09-07] MEDS: ATENOLOL 50 MG TAB PO SCH (14:10)
--- NOTE | 2016-09-07 14:48 | IPNPDOC ---
Subjective Date Seen The patient was seen on 09/07/16. Subjective Chief Complaint/HPI The patient is a 71-year-old female admitted with a reason for visit of CVA. General: Denies: Chills, Night Sweats Constitutional: Denies: Chills, Fever Eyes: Denies: Pain, Vision change ENT: Denies: Ear Pain, Head Aches Skin: Denies: Lesions, Rash Pulmonary: Denies: Cough, Dyspnea Cardiovascular: Denies: Chest Pain, Palpitations Gastrointestinal: Denies: Nausea, Vomiting Hematologic: Denies: Bleeding Excessively, Bruising Objective Physical Examination General Exam: Positive: Alert, Cooperative, No Acute Distress Eye Exam: Positive: Conjunctiva & lids normal, EOMI Neck Exam: Negative: JVD Chest Exam: Positive: Clear to auscultation, Normal air movement Heart Exam: Positive: Irregular Rhythm, Tachycardic Telemetry: Positive: Atrial fibrillation Abdomen Exam: Positive: Soft, Negative: Tenderness Extremity Exam: Negative: Tenderness Neuro Exam: Positive: Other (patient noted to have 5 out of 5 strength in the upper extremities bilaterally. Patient noted to have 5 out of 5 strength in the right lower extremity. Patient does have significant weakness on plantar flexion and extension of the left ankle. It does appear that the patient also has some fine motor muscle weakness in the left hand as well.) Assessment /Plan Plan/VTE VTE Prophylaxis Ordered?: Yes (already on anticoagulation) Plan 1. Left sided weakness - likely 2/2 acute CVA Presented with worsening left sided weakness with recent history of stroke in MRI with new acute infarction prior to this admission c/w Xarelto, Atorvastatin and ASA 81 Neurology (Dr. Perez) on board Physical therapy; has recommended inpatient rehabilitation, we will follow up on this 2. Atrial fibrillation with RVR - likely 2/2 stopping metoprolol Patient asymptomatic and hemodynamically stable Cont digoxin from home, Digoxin level adequate Cont Xarelto Patient started on Atenolol over the weekend, and her heart rate was initially controlled over the first 48 hrs. However today she was once again noted to be tachycardic in the 130s She was given her dose of Atenolol early this afternoon We will add Cardizem 30mg q6h for HR>110 3. Dyslipidemia Atorvastatin 4. Hypothyroidism Cont levothyroxine 5. DVT prophylaxis Already on full anticoagulation with Xarelto Disposition: Patient was going to get discharged to inpatient rehabilitation here today, however her heart rate did jump up to the 130s. We will adjust her medications and monitor her heart rate. VS, I&O, 24H, Fishbone Vital Signs/I&O Vital Signs Date Time Temp Pulse Resp B/P Pulse Ox O2 Delivery O2 Flow Rate FiO2 09/07/16 14:10 128 09/07/16 14:10 140/83 09/07/16 12:00 96.8 18 93 Room Air I&O- Last 24 Hours up to 6 AM 09/07/16 06:00 Intake Total 840 ml Output Total 950 ml Balance -110 ml Laboratory Data 24H LABS Laboratory Tests 2 09/07/16 04:40: Anion Gap 9, Blood Urea Nitrogen 12, Creatinine 0.67, Sodium Level 143, Potassium Level 4.2, Chloride Level 107, Carbon Dioxide Level 27, Calcium Level 9.0, Glomerular Filtration Rate > 60.0 CBC/BMP Laboratory Tests 09/07/16 04:40 Calcium Level 9.0, Red Blood Count 4.74, Mean Corpuscular Volume 91.1, Mean Corpuscular Hemoglobin 30.5, Mean Corpuscular Hemoglobin Concent 33.4, Red Cell Distribution Width 14.6 H TRUPTI MELÉNDEZ MD Sep 07, 2016 14:48
[2016-09-07 16:00] VITALS: BP 129/81
[2016-09-07 20:00] VITALS: BP 128/70
[2016-09-08] VITALS (7 sets, daily range): BP systolic 114–137; BP diastolic 66–82
[2016-09-08] MEDS: LEVOTHYROXINE 0.1 MG TAB (100 MCG) PO SCH (06:35)
[2016-09-08] MEDS: ATORVASTATIN 20 MG TAB PO SCH (09:12)
[2016-09-08] MEDS: ASPIRIN 81 MG ENTERIC TAB PO SCH (09:12)
[2016-09-08] MEDS: ATENOLOL 50 MG TAB PO SCH (09:12)
[2016-09-08] MEDS: DIGOXIN 0.125 MG TAB PO SCH (09:12)
[2016-09-08] MEDS: VITAMIN D 1,000 INTERNATIONAL UNITS TABLET PO SCH (09:13)
[2016-09-08] MEDS: RIVAROXABAN 20 MG TAB (XARELTO) PO SCH (09:13)
[2016-09-08] MEDS: ACETAMINOPHEN TAB 650MG DOSE (2X325MG) PO PRN (09:13)
[2016-09-08] MEDS: MULTIVITAMINS/MINERALS THERAP 1 TAB PO SCH (09:13)
--- NOTE | 2016-09-08 14:31 | IPNPDOC ---
Subjective Date Seen The patient was seen on 09/08/16. Subjective Chief Complaint/HPI The patient is a 71-year-old female admitted with a reason for visit of CVA. General: Denies: Chills, Night Sweats Constitutional: Denies: Chills, Fever Eyes: Denies: Pain, Vision change ENT: Denies: Ear Pain, Head Aches Skin: Denies: Lesions, Rash Pulmonary: Denies: Cough, Dyspnea Cardiovascular: Denies: Chest Pain, Palpitations Gastrointestinal: Denies: Nausea, Vomiting Genitourinary: Denies: Dysuria, Frequency Hematologic: Denies: Bleeding Excessively, Bruising Objective Physical Examination General Exam: Positive: Alert, Cooperative, No Acute Distress Eye Exam: Positive: Conjunctiva & lids normal, EOMI Neck Exam: Negative: JVD Chest Exam: Positive: Clear to auscultation, Normal air movement Heart Exam: Positive: Irregular Rhythm, Tachycardic Telemetry: Positive: Atrial fibrillation Abdomen Exam: Positive: Soft, Negative: Tenderness Extremity Exam: Negative: Tenderness Neuro Exam: Positive: Other (patient noted to have 5 out of 5 strength in the upper extremities bilaterally. Patient noted to have 5 out of 5 strength in the right lower extremity. Patient does have significant weakness on plantar flexion and extension of the left ankle. It does appear that the patient also has some fine motor muscle weakness in the left hand as well.) Assessment /Plan Plan/VTE VTE Prophylaxis Ordered?: Yes (already on anticoagulation) Plan 1. Left sided weakness - likely 2/2 acute CVA Presented with worsening left sided weakness with recent history of stroke in MRI with new acute infarction prior to this admission c/w Xarelto, Atorvastatin and ASA 81 Neurology (Dr. Perez) on board Physical therapy; has recommended inpatient rehabilitation, we will follow up on this 2. Atrial fibrillation with RVR - likely 2/2 stopping metoprolol Patient asymptomatic and hemodynamically stable Cont digoxin from home, Digoxin level adequate Cont Xarelto The patient's heart rate has been well controlled since yesterday afternoon when her atenolol dose was changed, and Cardizem was added We will continue to monitor the patient's heart rate at this time on the current regimen. 3. Dyslipidemia Atorvastatin 4. Hypothyroidism Cont levothyroxine 5. DVT prophylaxis Already on full anticoagulation with Xarelto Disposition: We will continue to monitor the patient's heart rate over the next 24 hours, and if stable the patient will likely be discharged to inpatient rehabilitation. VS, I&O, 24H, Fishbone Vital Signs/I&O Vital Signs Date Time Temp Pulse Resp B/P Pulse Ox O2 Delivery O2 Flow Rate FiO2 09/08/16 09:12 78 09/08/16 08:00 96.5 18 127/81 93 Room Air I&O- Last 24 Hours up to 6 AM 09/08/16 06:00 Intake Total 1745 ml Output Total 1200 ml Balance 545 ml TRUPTI MELÉNDEZ MD Sep 08, 2016 14:31
[2016-09-08] MEDS: SLF 3 ML SYR IV SCH (20:26)
[2016-09-08] MEDS ORDERED: SLF 3 ML SYR IV PRN (20:30)
[2016-09-09 04:45] VITALS: BP 120/80
[2016-09-09] MEDS: LEVOTHYROXINE 0.1 MG TAB (100 MCG) PO SCH (05:09)
[2016-09-09] MEDS: SLF 3 ML SYR IV SCH (05:09)
[2016-09-09 05:44] LABS: MEAN CORPUSCULAR HEMOGLOBIN 30.8 pg (27.0-33.0); MEAN CORPUSCULAR HGB CONC 33.1 g/dl (32.0-36.5); MEAN CORPUSCULAR VOLUME 93.1 fl (80.0-96.0); RED CELL DISTRIBUTION WIDTH 14.8 % (11.5-14.5); WHITE BLOOD COUNT 6.7 K/mm3 (4.0-10.0)
[2016-09-09 06:03] LABS: ANION GAP 5 MEQ/L (8-16); BLOOD UREA NITROGEN 17 MG/DL (7-18); CALCIUM LEVEL 8.6 MG/DL (8.8-10.2); CARBON DIOXIDE LEVEL 32 MEQ/L (21-32); CHLORIDE LEVEL 106 MEQ/L (98-107); CREATININE FOR GFR 0.75 MG/DL (0.55-1.02); GLOMERULAR FILTRATION RATE > 60.0 (>39); GLUCOSE, FASTING 106 MG/DL (83-110); MAGNESIUM LEVEL 1.9 MG/DL (1.8-2.4); SODIUM LEVEL 143 MEQ/L (136-145)
[2016-09-09] MEDS ORDERED: ATEN50TA2 PO (07:15)
[2016-09-09] MEDS ORDERED: ASPI81TAEC PO (07:15)
[2016-09-09 07:30] VITALS: BP 107/64
[2016-09-09] MEDS: RIVAROXABAN 20 MG TAB (XARELTO) PO SCH (08:46)
[2016-09-09] MEDS: ASPIRIN 81 MG ENTERIC TAB PO SCH (08:46)
[2016-09-09] MEDS: ATORVASTATIN 20 MG TAB PO SCH (08:47)
[2016-09-09] MEDS: VITAMIN D 1,000 INTERNATIONAL UNITS TABLET PO SCH (08:47)
[2016-09-09 08:48] VITALS: BP 107/64
[2016-09-09] MEDS: DIGOXIN 0.125 MG TAB PO SCH (08:48)
[2016-09-09] MEDS: ATENOLOL 50 MG TAB PO SCH (08:48)
[2016-09-09] MEDS: MULTIVITAMINS/MINERALS THERAP 1 TAB PO SCH (08:49)
--- NOTE | 2016-09-09 15:26 | DS.PDOC ---
Discharge Summary General Date of Admission Aug 31, 2016 at 00:02 Date of Discharge Sep 09, 2016 at 11:17 Specialist/Consultants Involve Dr. Perez of Neurology, Dr. Akers of Cardiology Discharge Summary PROCEDURES PERFORMED DURING STAY: None. COMPLICATIONS/CHIEF COMPLAINT: CVA ADMISSION DIAGNOSES: 1. .Recurrent CVA 2. .Atrial Fibrillation with RVR 3. .HTN DISCHARGE DIAGNOSES: 1. .Recurrent CVA 2. .Atrial Fibrillation with RVR 3. .HTN HISTORY OF PRESENT ILLNESS: 71-year-old female with past medical history of hypertension, dyslipidemia, atrial fibrillation on Xarelto, hypothyroidism, and recent right-sided CVA status post TPA on 07/02/16 at [facility] presented to the ER after the patient went to Dr. Perez of neurology's office complaining of worsening left sided weakness. The patient states that her residual deficits following the CVA on 07/02 was left-sided weakness. However following TPA treatment and subsequent rehabilitation, the patient was able to regain most of her baseline physical function. However, the patient states that over the last 10 days she has had persistent and recurrent weakness of the left upper and left lower extremities. She notes that she has been dropping utensils with her left hand, and has had more trouble with her gait while using the rolling walker. The patient went to Dr. Perez's office today, and had an MRI of the brain done. Apparently, this study showed a new CVA on the right side. The patient was subsequently sent to the ER for further evaluation and management. During the patient's hospitalization here, Dr. Perez of neurology recommended that 81 mg of aspirin be added to the patient's existing regimen of Xarelto. In addition, the patient hospital course here was complicated by atrial fibrillation with rapid ventricular rate. The patient's metoprolol dose was held given her recent CVA's as per neurology. In an effort to better control the patient's heart rate, the patient was started on atenolol 50 mg daily. Digoxin was continued, and the levels of this were noted to be therapeutic. Cardiology was consulted by my colleague Dr. Garcia, and they recommended against starting the patient on any antiarrhythmic such as amiodarone given her increased risk of thromboembolic event. Over the last 48 hours, the patient has been hemodynamically stable, and her heart rate has been well controlled. We will discharge her on aspirin 81 mg and Xarelto for stroke prophylaxis from atrial fibrillation. In addition, the patient will be continued on atenolol 50 mg daily for rate control. At this time, the patient states that she is feeling well, and she is eager to be transferred to rehabilitation so that she can continue on the road to recovery. DISCHARGE MEDICATIONS: Please see below. ALLERGIES: Please see below. PHYSICAL EXAMINATION ON DISCHARGE: VITAL SIGNS: Please see below. General Exam: Positive: Alert, Cooperative, No Acute Distress Eye Exam: Positive: Conjunctiva & lids normal, EOMI Neck Exam: Negative: JVD Chest Exam: Positive: Clear to auscultation, Normal air movement Heart Exam: Positive: Irregular Rhythm, Tachycardic Telemetry: Positive: Atrial fibrillation Abdomen Exam: Positive: Soft, Negative: Tenderness Extremity Exam: Negative: Tenderness Neuro Exam: Positive: Other (patient noted to have 5 out of 5 strength in the upper extremities bilaterally. Patient noted to have 5 out of 5 strength in the right lower extremity. Patient does have significant weakness on plantar flexion and extension of the left ankle. It does appear that the patient also has some fine motor muscle weakness in the left hand as well.) LABORATORY DATA: Please see below. VTE Prophylaxis ordered?: Already on Xarelto DISCHARGE CONDITION: Stable. DISPOSITION: . To inpatient rehabilitation ACTIVITY: . As tolerated DIET: . 2 g low sodium diet DISCHARGE PLAN AND INSTRUCTIONS: 1. . Continue rehabilitation, at [facility] inpatient unit 2. . Follow-up with PCP within 1-2 weeks for further evaluation and management 3. . Follow-up with cardiology as an outpatient for further evaluation and management of atrial fibrillation TIME SPENT ON DISCHARGE: Greater than 30 minutes. Vital Signs/I&Os Vital Signs Date Time Temp Pulse Resp B/P Pulse Ox O2 Delivery O2 Flow Rate FiO2 09/09/16 08:48 96 107/64 09/09/16 07:30 96.7 20 92 Room Air I&O- Last 24 Hours up to 6 AM 09/09/16 06:00 Intake Total 1080 ml Output Total 650 ml Balance 430 ml Laboratory Data Labs 24H Laboratory Tests 2 09/09/16 05:04: Anion Gap 5L, Blood Urea Nitrogen 17, Creatinine 0.75, Sodium Level 143, Potassium Level 4.0, Chloride Level 106, Carbon Dioxide Level 32, Calcium Level 8.6L, Glomerular Filtration Rate > 60.0, Magnesium Level 1.9 CBC/BMP Laboratory Tests 09/09/16 05:04 Calcium Level 8.6 L, Red Blood Count 4.33, Mean Corpuscular Volume 93.1, Mean Corpuscular Hemoglobin 30.8, Mean Corpuscular Hemoglobin Concent 33.1, Red Cell Distribution Width 14.8 H Medications Scheduled (Calcium 500+D 500-200 mg-Unit) 1 Tab Tab 1 TAB PO QHS (Glucosamine Chondroitin) 1 Tab Tab 1 TAB PO BID (Restasis) 0.05 % Emu 1 DROP OU BID (B Complex) 1 Tab Tab 1 TAB PO DAILY Aspirin (Aspirin EC) 81 Mg Tabec 81 MG PO DAILY Atenolol (Atenolol) 50 Mg Tab 50 MG PO DAILY Atorvastatin Calcium (Atorvastatin Calcium) 40 Mg Tab 40 MG PO DAILY Cholecalciferol (Vitamin D) 1,000 Unit Tab 2,000 UNIT PO DAILY Digoxin (Digoxin) 0.125 Mg Tab 0.125 MG PO DAILY Hydroxypropyl Methylcellulose (Systane Overnight Therapy) 0.3 % Gel 1 DROP OU QHS Levothyroxine Sodium (Synthroid) 100 Mcg Tab 100 MCG PO DAILY Loteprednol Etabonate (Lotemax) 0.5 % Mita 1 DROP OU TID Melatonin (Melatonin) 10 Mg Tab 10 MG PO QHS Multivitamins *[facility] STOCKED* (Thera M Plus *[facility] STOCKED*) 1 Tab Tab 1 TAB PO DAILY Rivaroxaban (Xarelto) 20 Mg Tab 20 MG PO DAILY Scheduled PRN Carboxymethylcellulose Sodium (Refresh Tears) 0.5 % Ervin 1 DROP OU TID PRN PRN DRY EYES Allergies Coded Allergies: Aspirin (Verified Allergy, Intermediate, HIVES, 10/20/12) Shellfish Allergy (Verified Allergy, Unknown, 10/20/12) Sulfa Drugs (Verified Allergy, Unknown, 10/20/12) Sulfa Drugs Cross Reactors (Verified Allergy, Unknown, 10/20/12) TRUPTI MELÉNDEZ MD Sep 09, 2016 15:26
== END 2016-09-09 11:17 | DRG 65 ==
LOC: M ED 20:40 → M ED INP 08-31 00:02 → M PCU 08-31 12:53
PROVIDERS: ADMIT Internal Medicine; ATTEND Internal Medicine
DX: I63.59 Cerebral infarction due to unspecified occlusion or stenosis of other cerebral artery (principal); G81.94 Hemiplegia, unspecified affecting left nondominant side; I10 Essential (primary) hypertension; E78.5 Hyperlipidemia, unspecified; I48.91 Unspecified atrial fibrillation; E03.9 Hypothyroidism, unspecified; Z79.01 Long term (current) use of anticoagulants; Z79.899 Other long term (current) drug therapy; Z88.6 Allergy status to analgesic agent; Z88.2 Allergy status to sulfonamides; Z91.013 Allergy to seafood

== ENCOUNTER 2016-09-07 13:49 | Inpatient (IN) | payer MEDICARE, BC, OTHER ==
[~2016-09-07] VITALS: Ht 160 cm; Wt 101.0 kg
[~2016-09-07 13:49] MED LIST changes: +ATOR40TA PO; +B COTAB3 PO; +CALC1TAB30 PO; +DIGO0.12 PO; +GLUCTAB6 PO; +LOPR1TAB6 PO; +LOTE0.5S OU; +MELA10TA4 PO; +REFR0.5D8 OU; +REST0.05 OU; +SYNT100T PO; +SYST0.3G OU; +VITA100066 PO; +VITMTA PO; +XARE20TA PO
[2016-09-07] MEDS ORDERED: ATENOLOL 50 MG TAB PO SCH (21:00)
[2016-09-08] MEDS ORDERED: VITAMIN D 1,000 INTERNATIONAL UNITS TABLET PO SCH (09:00)
[2016-09-08] MEDS ORDERED: RAMELTEON 8 MG TAB (ROZEREM) PO SCH (21:00)
[2016-09-09] MEDS ORDERED: ASPI81TAEC PO (07:15)
[2016-09-09] MEDS ORDERED: ATEN50TA2 PO (07:15)
[2016-09-09] MEDS: PANTOPRAZOLE 40MG TAB (PROTONIX) PO SCH ×2 (09:00→12:49)
[2016-09-09 11:30] VITALS: BP 119/85
--- NOTE | 2016-09-09 12:49 | HPEPDOC ---
Elephant Keeper Note ADMISSION H&P + DAHLIA DATE OF ADMISSION: 09/09/2016 DATE OF SERVICE: 09/09/2016 IDENTIFICATION STATEMENT: Patient is a 71-year-old woman with increased left hemiparesis secondary to right basal ganglia CVA admitted for apprehensive integrated inpatient rehabilitation. HISTORY OF PRESENT ILLNESS: Patient is a 71-year-old right hand dominant woman with multiple medical comorbidities including atrial fibrillation on Xarelto and prior CVA in June 2016 who ports experiencing increased left-sided weakness around August 20. She states symptoms progressed and on August 27 she presented to heparin emergency room where CT of the head was done and she was discharged home. Mom due to persistent symptoms she presented to Dr. Perez August 30. MRI done in the office revealed a 2 cm infarct from the outer capsule of the right basal ganglia into the morrell radiata. Patient was then admitted to [facility] for further treatment. She was started on aspirin in addition to her Xarelto. She was noted to have episodic tachycardia for which she was started on atenolol. She has been evaluated by therapy and recommendation is for continued rehabilitation. On evaluation today, the patient reports feeling weak on the left side. She denies any sensory alteration. She also reports difficulty with fine motor coordination in the left hand. She re[ports being nauseated yesterday, but no vomiting. Not related to eating or activity. Resolved with Zofran IV. Problem with sleep, longstanding, usually takes melatonin at home. She denies any lightheadedness, diaphoresis, visual impairment, headache. She reports labile mood since her CVA in June with periods of crying related to her deficits. She states she was started on antidepressants just prior to coming to the hospital, but never picked it up from the pharmacy because of the increased weakness. PAST MEDICAL HISTORY: Hypertension Dyslipidemia Atrial fibrillation on Xarelto Hypothyroidism CVA 07/02/2016 status post TPA at [facility] PAST SURGICAL HISTORY: Right ankle fracture status post ORIF Bilateral total knee replacements (2006 and 2012) ALLERGIES: Sulfa drugs [note: Patient has reported allergy to aspirin and shellfish in the EMR. I discussed her allergies and she reports an episode 20 years ago of hives that she relates to taking aspirin and eating shellfish simultaneously. He further states that she is able to have aspirin independently without adverse side effects and eat shellfish independently without side effects. 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 [place] daughter and in a two-story home, but there is a first floor set up. There are no steps to manage to get into the house as there is a ramp. She denies any use of tobacco, alcohol or illicit drugs, past or present. Review of Systems: General: no chills, +fatigue, no weight changes. Eyes: no change of vision, + bifocals. Ears, Nose & Throat: no sore throat, decreased hearing or nasal discharge. Cardiovascular: no chest pain, claudication, edema , syncopal episodes. Pul: no cough, SOB, GI: last BM this morning; no abdominal pain, vomiting, had loose stools yesterday but resolved. Genitourinary: no dysuria. Gynecological: no vaginal bleeding, post-menopausal . Musculoskeletal: + left hand pain. no back/neck, no muscle pain. Neurological: no numbness, paresthesias, no tremors, progressive weakness, seizures, FLORES. Hematological: No bleeding disorders. Skin: no rashes. Psychiatric: Periods of feeling sad and tearfulness related to her stroke, the symptoms started in June. As stated above, she was recently prescribed in antidepressant, but never got the chance to start it secondary to her increased left hemiparesis. No suicidal or homicidal ideation. No other behavioral issues. VITAL SIGNS: 98.4F, pulse 74, respiratory rate of 18, blood pressure 119/85, 94 % saturation on room air PHYSICAL EXAMINATION: GENERAL: Well nourished, well developed, sitting up in bed, no acute distress. HEENT: Normocephalic, atraumatic. No facial droop. No jugular venous distention (JVD). PERRL, EOMI CARDIOVASCULAR: S1, S2, irregular rate. No significant lower limb edema or calf tenderness bilaterally LUNGS: Clear to auscultation bilaterally no wheezing, rhonchi or rales ABDOMEN: Soft, nontender, nondistended. Positive normoactive bowel sounds throughout. NEUROLOGICAL: Alert and oriented x 3. Answers all questions appropriately. Memory seems intact. Limbs without difficulty. Manual muscle testin/5 strength right upper and lower limb in all major muscle groups. 5/5 strength left upper limb in all major muscle groups. 4/5 left hip flexors, 5/5 left knee extension flexion, 3/5 left dorsiflexion plantar flexion. Sensation: Intact to soft touch bilateral upper and lower limbs. Deep tendon reflexes: Unable to elicit patellar bilaterally, 1+ biceps bilaterally. Finger to nose within normal limit limits bilaterally MOOD: Labile, tearful at times when talking about her stroke/situation. SKIN: IV site right wrist, with 2x2, no bleeding. LABORATORY DATA: 09/09/2016: WBC count 6.7, hemoglobin 13.3, hematocrit 40.3, platelets 242, sodium 143, potassium 4.0, chloride 106, carbon dioxide 32, BUN 17, creatinine 0.75, GFR greater than 60.0, fasting glucose 106, calcium 8.6. 09/09/2016: Magnesium 1.9 08/31/2016 hemoglobin A1c 6.5 IMAGING: MRI of the brain 08/30/2016: Approximate 2 cm subacute infarct extending from the outer capsule of the right basal ganglia rostrally into the morrell radiata adjacent to the body of the right lateral ventricle. There is a small area of associated petechial hemorrhage lying just lateral to the hot known. Right matter changes consistent with moderate underlying microvascular disease are also present. MRA of the neck without contrast 08/30: Vertebral artery origins are obscured by artifact, the study is otherwise negative. MRA without contrast 08/30/2016: Negative study FUNCTIONAL STATUS, Premorbid: Modified independent with ambulation with rolling walker. Dependent modified independent with ADLs ASSESSMENT AND PLAN: 1. Right basal ganglia infarct with increased left hemiparesis resulting in decreased mobility and dysfunctional ADLs: Will continue patient on aspirin and Xarelto. Continue patient on statin. She will undergo thorough physical and occupational therapy evaluations followed by daily intensive therapy. Rehabilitation nursing for bladder, bowel and medication management 2. Atrial fibrillation: Patient has had episodic tachycardia throughout this rehabilitation. She has recently been switched from metoprolol to atenolol. Diltiazem also added. Will monitor heart rate with medication adjustments as indicated. Maintain digoxin and anticoagulation with Xarelto 3. DVT prophylaxis: As stated above, patient is anticoagulated with Xarelto. Will also provide SCD and ASUNCION hose. 4. Bowel: Patient reports having loose stools yesterday that have resolved. At this time no indication for bowel medications. Will reassess should situation change. 5. Left hand pain: Alternating heat and ice. 6. Mood: will clarify which anti-depressant was prescribed and order. 7. Insomnia: Will order melatonin qhs. 8. Diet/nutrition: Will obtain a prealbumin with morning labs. Maintain patient on a low cholesterol diet. Nutritional supplements as indicated. POST ADMISSION PHYSICIAN EVALUATION: On evaluation of the patient today there' ve been no significant medical issues or functional changes. As stated in the preadmission screen, discharge was held 2nd tachycardia. Her medication have been adjusted and she is currently rate controlled. This patient's inpatient rehabilitation remains necessary in light of the above conditions. The patient' s medical condition requires specialized care with physicians specially trained in physical medicine rehabilitation. The patient is capable motivated to participate in a minimum of 3 hours of therapy daily, 5 days minimum per week, and requires intensive inpatient rehabilitation to improve their functional status so that they can be safely to discharge back to their home. PROGNOSIS: Good ESTIMATED LENGTH OF STAY: 7 days. / Vital Signs Vital Sign - Last 24 Hours 09/09/16 11:30 Temp 98.4 Pulse 74 Resp 18 B/P 119/85 Pulse Ox 94 O2 Delivery Room Air Home Medications Scheduled (Calcium 500+D 500-200 mg-Unit) 1 Tab Tab 1 TAB PO QHS (Reported) (Glucosamine Chondroitin) 1 Tab Tab 1 TAB PO BID (Reported) (Restasis) 0.05 % Emu 1 DROP OU BID (Reported) (B Complex) 1 Tab Tab 1 TAB PO DAILY (Reported) Aspirin (Aspirin EC) 81 Mg Tabec 81 MG PO DAILY Atenolol (Atenolol) 50 Mg Tab 50 MG PO DAILY Atorvastatin Calcium (Atorvastatin Calcium) 40 Mg Tab 40 MG PO DAILY (Reported) Cholecalciferol (Vitamin D) 1,000 Unit Tab 2,000 UNIT PO DAILY (Reported) Digoxin (Digoxin) 0.125 Mg Tab 0.125 MG PO DAILY (Reported) Hydroxypropyl Methylcellulose (Systane Overnight Therapy) 0.3 % Gel 1 DROP OU QHS (Reported) Levothyroxine Sodium (Synthroid) 100 Mcg Tab 100 MCG PO DAILY (Reported) Loteprednol Etabonate (Lotemax) 0.5 % Mita 1 DROP OU TID (Reported) Melatonin (Melatonin) 10 Mg Tab 10 MG PO QHS (Reported) Multivitamins *[facility] STOCKED* (Thera M Plus *[facility] STOCKED*) 1 Tab Tab 1 TAB PO DAILY (Reported) Rivaroxaban (Xarelto) 20 Mg Tab 20 MG PO DAILY (Reported) Scheduled PRN Carboxymethylcellulose Sodium (Refresh Tears) 0.5 % Ervin 1 DROP OU TID PRN PRN DRY EYES (Reported) Allergies Coded Allergies: Aspirin (Verified Allergy, Intermediate, HIVES, 10/20/12) Shellfish Allergy (Verified Allergy, Unknown, 10/20/12) Sulfa Drugs (Verified Allergy, Unknown, 10/20/12) Sulfa Drugs Cross Reactors (Verified Allergy, Unknown, 10/20/12) ZOILA GRAHAM MD Sep 09, 2016 12:49
[2016-09-09 14:00] VITALS: BP 118/55
[2016-09-09] MEDS: ACETAMINOPHEN TAB 650MG DOSE (2X325MG) PO PRN (16:00)
[2016-09-09 20:00] VITALS: BP 148/52
[2016-09-09 21:00] VITALS: BP 122/84
[2016-09-09] MEDS ORDERED: MELATONIN 10MG TABLET (PATIENT'S OWN MED) PO SCH (21:00)
[2016-09-09] MEDS: MELATONIN 10MG TABLET (PATIENT'S OWN MED) PO SCH (23:25)
[2016-09-10] MEDS: ACETAMINOPHEN TAB 650MG DOSE (2X325MG) PO PRN ×2 (01:07→12:19)
[2016-09-10 06:00] VITALS: BP 122/73
[2016-09-10] MEDS: LEVOTHYROXINE 0.1 MG TAB (100 MCG) PO SCH (06:10)
[2016-09-10 07:17] LABS: ANION GAP 7 MEQ/L (8-16); BLOOD UREA NITROGEN 14 MG/DL (7-18); CALCIUM LEVEL 9.1 MG/DL (8.8-10.2); CARBON DIOXIDE LEVEL 31 MEQ/L (21-32); CHLORIDE LEVEL 105 MEQ/L (98-107); CREATININE FOR GFR 0.74 MG/DL (0.55-1.02); GLOMERULAR FILTRATION RATE > 60.0 (>39); GLUCOSE, FASTING 112 MG/DL (83-110); MEAN CORPUSCULAR HEMOGLOBIN 30.4 pg (27.0-33.0); MEAN CORPUSCULAR VOLUME 92.2 fl (80.0-96.0); POTASSIUM SERUM 3.8 MEQ/L (3.5-5.1); RED CELL DISTRIBUTION WIDTH 14.9 % (11.5-14.5); SODIUM LEVEL 143 MEQ/L (136-145); WHITE BLOOD COUNT 5.9 K/mm3 (4.0-10.0)
[2016-09-10 07:30] LABS: DIGOXIN LEVEL 0.8 NG/ML (0.5-2.0)
[2016-09-10] MEDS: RIVAROXABAN 20 MG TAB (XARELTO) PO SCH (09:20)
[2016-09-10] MEDS: ATORVASTATIN 20 MG TAB PO SCH (09:20)
[2016-09-10] MEDS: PANTOPRAZOLE 40MG TAB (PROTONIX) PO SCH (09:20)
[2016-09-10] MEDS: ASPIRIN 81 MG ENTERIC TAB PO SCH (09:20)
[2016-09-10] MEDS: MULTIVITAMINS/MINERALS THERAP 1 TAB PO SCH (09:20)
[2016-09-10] MEDS: DIGOXIN 0.125 MG TAB PO SCH (09:20)
[2016-09-10] MEDS: ATENOLOL 50 MG TAB PO SCH (09:21)
[2016-09-10] MEDS: VITAMIN D 1,000 INTERNATIONAL UNITS TABLET PO SCH (09:24)
--- NOTE | 2016-09-10 11:40 | IPNPDOC ---
[employer] [facility] Progress Note PROGRESS NOTE DATE OF ADMISSION: 09/09/2016 DATE OF SERVICE: 09/10/2016 IDENTIFICATION STATEMENT: Patient is a 71-year-old woman with increased left hemiparesis secondary to right basal ganglia CVA admitted for comprehensive integrated inpatient rehabilitation. PAST MEDICAL HISTORY: Hypertension Dyslipidemia Atrial fibrillation on Xarelto Hypothyroidism CVA 07/02/2016 status post TPA at [facility] PAST SURGICAL HISTORY: Right ankle fracture status post ORIF Bilateral total knee replacements (2006 and 2012) ALLERGIES: Sulfa drugs [note: Patient has reported allergy to aspirin and shellfish in the EMR. I discussed her allergies and she reports an episode 20 years ago of hives that she relates to taking aspirin and eating shellfish simultaneously. He further states that she is able to have aspirin independently without adverse side effects and eat shellfish independently without side effects. She is currently on aspirin without any adverse side effects) MEDICATIONS: Atenolol 50 mg by mouth daily at bedtime Diltiazam 30mg q6h Aspirin 81 mg by mouth daily Lipitor 40 mg by mouth daily Vitamin D 2000 units by mouth daily Digoxin 0.125 mg by mouth daily Multivitamin 1 tab by mouth daily Xarelto 20 mg by mouth daily Synthroid 0.1 mg by mouth daily Acetaminophen 650 mg every 4 hours when necessary mild pain or fever Zofran 4 mg PO every 8 hours when necessary for nausea / vomiting SUBJECTIVE: Patient with complaints of dry eyes. Also states TEDs are uncomfortable, roll down and awoke her in the evening. Had left leg cramp, but resolved. Otherwise, no complaints. No N/V, FLORES, new weakness, diaphoresis, palpitations, CP or SOB. VITAL SIGNS: 97.1F, pulse 65, respiratory rate of 18, blood pressure 122/73, 95 % saturation on room air PHYSICAL EXAMINATION: GENERAL: Well nourished, well developed, sitting up in bed, no acute distress. HEENT: Normocephalic, atraumatic. No facial droop. PERRL, EOMI CARDIOVASCULAR: S1, S2, irregular rate. No significant lower limb edema or calf tenderness bilaterally LUNGS: Clear to auscultation bilaterally no wheezing, rhonchi or rales ABDOMEN: Soft, nontender, nondistended. Positive normoactive bowel sounds throughout. NEUROLOGICAL: Alert and oriented x 3. Answers all questions appropriately. MMT: 5/5 strength right upper and lower limb in all major muscle groups. 5/5 strength left upper limb in all major muscle groups. 4/5 left hip flexors, 5/5 left knee extension flexion, 3/5 left dorsiflexion plantar flexion. MOOD: Stable, improved. LABORATORY DATA: 09/10/16: reviewed, see below 08/31/2016 hemoglobin A1c 6.5 IMAGING: MRI of the brain 08/30/2016: Approximate 2 cm subacute infarct extending from the outer capsule of the right basal ganglia rostrally into the morrell radiata adjacent to the body of the right lateral ventricle. There is a small area of associated petechial hemorrhage lying just lateral to the hot known. Right matter changes consistent with moderate underlying microvascular disease are also present. MRA of the neck without contrast 08/30: Vertebral artery origins are obscured by artifact, the study is otherwise negative. MRA without contrast 08/30/2016: Negative study FUNCTIONAL STATUS, Premorbid: Modified independent with ambulation with rolling walker. Dependent modified independent with ADLs ASSESSMENT AND PLAN: 1. Right basal ganglia infarct with increased left hemiparesis resulting in decreased mobility and dysfunctional ADLs: Aspirin, Xarelto, statin. Continue daily physical and occupational therapy. Rehabilitation nursing for bladder, bowel and medication management 2. Atrial fibrillation: Rate controlled. Continue atenolol, diltiazem, digoxin and Xarelto 3. DVT prophylaxis: As stated above, anticoagulated with Xarelto. Continue SCD. D/c ASUNCION hose. 4. Bowel: Loose stools resolved. 5. Left hand pain: Alternating heat and ice. 6. Mood: Improved, stable. 7. Insomnia: Melatonin qhs. 8. Diet/nutrition: Prealbumin wnl. Maintain patient on a low cholesterol diet. 9 Dry eyes: NS eye drops prn 10. Left leg cramp: Flexeril prn / Vital Signs Vital Sign - Last 24 Hours 09/09/16 09/09/16 09/09/16 09/09/16 12:50 14:00 18:23 20:00 Temp 98.8 98.8 Pulse 81 85 86 62 Resp 18 18 B/P 126/68 118/55 111/61 148/52 Pulse Ox 95 93 O2 Delivery Room Air Room Air 09/09/16 09/09/16 09/09/16 09/10/16 20:00 21:00 23:24 06:00 Temp 97.1 Pulse 78 64 Resp 18 B/P 122/84 122/71 122/73 Pulse Ox 95 O2 Delivery Room Air Room Air 09/10/16 09/10/16 06:11 09:20 Pulse 64 65 B/P 122/73 Laboratory Data CBC/BMP Laboratory Tests 09/10/16 06:41 Calcium Level 9.1, Red Blood Count 4.44, Mean Corpuscular Volume 92.2, Mean Corpuscular Hemoglobin 30.4, Mean Corpuscular Hemoglobin Concent 33.0, Red Cell Distribution Width 14.9 H Labs 24H Laboratory Tests 2 09/10/16 06:41: Anion Gap 7L, Blood Urea Nitrogen 14, Creatinine 0.74, Sodium Level 143, Potassium Level 3.8, Chloride Level 105, Carbon Dioxide Level 31, Calcium Level 9.1, Digoxin Level 0.8, Glomerular Filtration Rate > 60.0, Prealbumin 24.5 Allergies Allergies: Coded Allergies: Aspirin (Verified Allergy, Intermediate, HIVES, 10/20/12) Shellfish Allergy (Verified Allergy, Unknown, 10/20/12) Sulfa Drugs (Verified Allergy, Unknown, 10/20/12) Sulfa Drugs Cross Reactors (Verified Allergy, Unknown, 10/20/12) Current Medications Current Medications Current Medications Acetaminophen (Tylenol Tab) 650 mg Q4HP PRN PO MILD PAIN (PS 1-4) Last administered on 09/10/16 01:07; Start 09/07/16 at 14:45; Stop 10/07/16 at 14:44 Artificial Tears (Akwa Tears) 2 drop QIDP PRN OU DRY EYES; Start 09/10/16 at 10 :30; Stop 10/10/16 at 10:29 Aspirin (Ecotrin) 81 mg DAILY PO Last administered on 09/10/16 09:20; Start at 09:00; Stop 10/10/16 at 08:59 Atenolol (Tenormin) 50 mg DAILY PO Last administered on 09/10/16 09:21; Start 09/10/16 at 09:00; Stop 10/10/16 at 08:59 Atenolol (Tenormin) 50 mg QHS PO ; Start 09/07/16 at 21:00; Stop 09/09/16 at 11: 53; Status DC Atorvastatin Calcium (Lipitor) 40 mg DAILY PO Last administered on 09/10/16 09 :20; Start 09/10/16 at 09:00; Stop 10/10/16 at 08:59 Digoxin (Lanoxin) 0.125 mg DAILY PO Last administered on 09/10/16 09:20; Start 09/10/16 at 09:00; Stop 10/10/16 at 08:59 Diltiazem HCl (Cardizem) 30 mg Q6H PO Last administered on 09/10/16 06:11; Start 09/09/16 at 12:00; Stop 10/09/16 at 11:59 Levothyroxine Sodium (Synthroid) 0.1 mg DAILY@06 PO Last administered on 06:10; Start 09/10/16 at 06:00; Stop 10/10/16 at 05:59 Miscellaneous (Unresolved Patient Own Med Order) SEE LABEL COMMENTS UNRESOLVED XX ; Start 09/09/16 at 00:01; Stop 09/09/16 at 20:13; Status DC Multivitamins (Theragram-M) 1 tab DAILY PO Last administered on 09/10/16 09:20 ; Start 09/10/16 at 09:00; Stop 10/10/16 at 08:59 Ondansetron HCl (Zofran) 4 mg Q6HP PRN PO NAUSEA; Start 09/07/16 at 14:45; Stop 10/07/16 at 14:44 Pantoprazole Sodium (Protonix) 40 mg DAILY PO Last administered on 09/10/16 09 :20; Start 09/08/16 at 09:00; Stop 10/08/16 at 08:59 Patient Own Medication (Patient'S Own Med) Melatonin 10mg po qhs QHS PO ; Start 09/09/16 at 21:00; Stop 09/09/16 at 21:00; Status DC Patient Own Medication (Patient'S Own Med) Melatonin 10mg po qhs QHS PO Last administered on 09/09/16 23:25; Start 09/09/16 at 21:00; Stop 10/09/16 at 20:59 Ramelteon (Rozerem) 8 mg QHS PO ; Start 09/08/16 at 21:00; Stop 09/09/16 at 12: 05; Status DC Rivaroxaban (Xarelto) 20 mg DAILY PO Last administered on 09/10/16 09:20; Start 09/10/16 at 09:00; Stop 09/17/16 at 08:59 Vitamin D (Vitamin D) 2,000 units DAILY PO ; Start 09/08/16 at 09:00; Stop 09/09 at 12:43; Status DC Vitamin D (Vitamin D) 2,000 units DAILY PO Last administered on 09/10/16 09:24 ; Start 09/10/16 at 09:00; Stop 10/10/16 at 08:59 ZOILA GRAHAM MD Sep 10, 2016 11:40
[2016-09-10 12:16] VITALS: BP 116/71
[2016-09-10 14:00] VITALS: BP 101/66
[2016-09-10 20:00] VITALS: BP 123/77
[2016-09-10] MEDS: MELATONIN 10MG TABLET (PATIENT'S OWN MED) PO SCH (23:50)
[2016-09-11] VITALS: BP 131/75
[2016-09-11] MEDS: LEVOTHYROXINE 0.1 MG TAB (100 MCG) PO SCH (05:50)
[2016-09-11 06:00] VITALS: BP 119/77
[2016-09-11] MEDS: DIGOXIN 0.125 MG TAB PO SCH (08:08)
[2016-09-11] MEDS: VITAMIN D 1,000 INTERNATIONAL UNITS TABLET PO SCH (08:08)
[2016-09-11] MEDS: ATENOLOL 50 MG TAB PO SCH (08:08)
[2016-09-11] MEDS: MULTIVITAMINS/MINERALS THERAP 1 TAB PO SCH (08:08)
[2016-09-11] MEDS: ASPIRIN 81 MG ENTERIC TAB PO SCH (08:08)
[2016-09-11] MEDS: ATORVASTATIN 20 MG TAB PO SCH (08:08)
[2016-09-11] MEDS: RIVAROXABAN 20 MG TAB (XARELTO) PO SCH (08:08)
[2016-09-11] MEDS: PANTOPRAZOLE 40MG TAB (PROTONIX) PO SCH (08:08)
[2016-09-11 14:00] VITALS: BP 108/56
[2016-09-11] MEDS: ONDANSETRON 4 MG TAB (S0181) PO PRN (17:11)
[2016-09-11 20:00] VITALS: BP 120/72
[2016-09-11] MEDS: CYCLOBENZAPRINE 10 MG TAB PO PRN (22:32)
[2016-09-11] MEDS: MELATONIN 10MG TABLET (PATIENT'S OWN MED) PO SCH (23:35)
[2016-09-12] VITALS: BP 101/66
[2016-09-12] MEDS: LEVOTHYROXINE 0.1 MG TAB (100 MCG) PO SCH (05:34)
[2016-09-12 06:00] VITALS: BP 109/76
[2016-09-12] MEDS: VITAMIN D 1,000 INTERNATIONAL UNITS TABLET PO SCH (09:22)
[2016-09-12] MEDS: MULTIVITAMINS/MINERALS THERAP 1 TAB PO SCH (09:22)
[2016-09-12] MEDS: ATORVASTATIN 20 MG TAB PO SCH (09:22)
[2016-09-12] MEDS: ASPIRIN 81 MG ENTERIC TAB PO SCH (09:23)
[2016-09-12] MEDS: RIVAROXABAN 20 MG TAB (XARELTO) PO SCH (09:23)
[2016-09-12] MEDS: PANTOPRAZOLE 40MG TAB (PROTONIX) PO SCH (09:23)
[2016-09-12] MEDS: ATENOLOL 50 MG TAB PO SCH (09:23)
[2016-09-12] MEDS: DIGOXIN 0.125 MG TAB PO SCH (09:23)
[2016-09-12] MEDS: ACETAMINOPHEN TAB 650MG DOSE (2X325MG) PO PRN (09:41)
[2016-09-12 14:00] VITALS: BP 123/61
[2016-09-12 20:00] VITALS: BP 136/82
[2016-09-12] MEDS: MELATONIN 10MG TABLET (PATIENT'S OWN MED) PO SCH (23:30)
[2016-09-13 06:02] VITALS: BP 129/86
[2016-09-13] MEDS: LEVOTHYROXINE 0.1 MG TAB (100 MCG) PO SCH (06:03)
[2016-09-13 07:12] LABS: MEAN CORPUSCULAR HEMOGLOBIN 29.9 pg (27.0-33.0); MEAN CORPUSCULAR HGB CONC 32.8 g/dl (32.0-36.5); MEAN CORPUSCULAR VOLUME 91.2 fl (80.0-96.0); RED CELL DISTRIBUTION WIDTH 14.7 % (11.5-14.5)
[2016-09-13 07:32] LABS: ANION GAP 8 MEQ/L (8-16); BLOOD UREA NITROGEN 12 MG/DL (7-18); CALCIUM LEVEL 9.1 MG/DL (8.8-10.2); CARBON DIOXIDE LEVEL 32 MEQ/L (21-32); CHLORIDE LEVEL 105 MEQ/L (98-107); CREATININE FOR GFR 0.82 MG/DL (0.55-1.02); GLOMERULAR FILTRATION RATE > 60.0 (>39); GLUCOSE, FASTING 124 MG/DL (83-110); SODIUM LEVEL 145 MEQ/L (136-145)
[2016-09-13] MEDS: VITAMIN D 1,000 INTERNATIONAL UNITS TABLET PO SCH (08:43)
[2016-09-13] MEDS: DIGOXIN 0.125 MG TAB PO SCH (08:43)
[2016-09-13] MEDS: PANTOPRAZOLE 40MG TAB (PROTONIX) PO SCH (08:43)
[2016-09-13] MEDS: MULTIVITAMINS/MINERALS THERAP 1 TAB PO SCH (08:43)
[2016-09-13] MEDS: ASPIRIN 81 MG ENTERIC TAB PO SCH (08:43)
[2016-09-13] MEDS: ATORVASTATIN 20 MG TAB PO SCH (08:43)
[2016-09-13] MEDS: ATENOLOL 50 MG TAB PO SCH (08:43)
[2016-09-13] MEDS: RIVAROXABAN 20 MG TAB (XARELTO) PO SCH (08:43)
--- NOTE | 2016-09-13 09:56 | IPNPDOC ---
[employer] Progress Note PROGRESS NOTE DATE OF ADMISSION: 09/09/2016 DATE OF SERVICE: 09/13/2016 IDENTIFICATION STATEMENT: Patient is a 71-year-old woman with increased left hemiparesis secondary to right basal ganglia CVA admitted for comprehensive integrated inpatient rehabilitation. PAST MEDICAL HISTORY: Hypertension Dyslipidemia Atrial fibrillation on Xarelto Hypothyroidism CVA 07/02/2016 status post TPA at [facility] PAST SURGICAL HISTORY: Right ankle fracture status post ORIF Bilateral total knee replacements (2006 and 2012) ALLERGIES: Sulfa drugs [note: Patient has reported allergy to aspirin and shellfish in the EMR. I discussed her allergies and she reports an episode 20 years ago of hives that she relates to taking aspirin and eating shellfish simultaneously. He further states that she is able to have aspirin independently without adverse side effects and eat shellfish independently without side effects. She is currently on aspirin without any adverse side effects) MEDICATIONS: Atenolol 50 mg by mouth daily at bedtime Diltiazam 30mg q8h Aspirin 81 mg by mouth daily Protonix 40mg daily Lipitor 40 mg by mouth daily Vitamin D 2000 units by mouth daily Digoxin 0.125 mg by mouth daily Multivitamin 1 tab by mouth daily Xarelto 20 mg by mouth daily Synthroid 0.1 mg by mouth daily Acetaminophen 650 mg every 4 hours when necessary mild pain or fever Flexeril 10mg tid prn Melatonin 1 tab po qhs Zofran 4 mg PO every 8 hours when necessary for nausea / vomiting SUBJECTIVE: Patient without complaints. No issues over the weekend. Flexeril helpful. No N/V, FLORES, new weakness, diaphoresis, palpitations, CP or SOB. VITAL SIGNS: 96.7F, pulse 88, respiratory rate of 16, blood pressure 129/86, 95 % saturation on room air PHYSICAL EXAMINATION: GENERAL: Well nourished, well developed, sitting up in bed, no acute distress. HEENT: Normocephalic, atraumatic. No facial droop. PERRL, EOMI CARDIOVASCULAR: S1, S2, irregular rate. No significant lower limb edema or calf tenderness bilaterally LUNGS: Clear to auscultation bilaterally no wheezing, rhonchi or rales ABDOMEN: Soft, nontender, nondistended. Positive normoactive bowel sounds throughout. NEUROLOGICAL: Alert and oriented x 3. Answers all questions appropriately. MMT: 5/5 strength right upper and lower limb in all major muscle groups. 5/5 strength left upper limb in all major muscle groups. 4/5 left hip flexors, 5/5 left knee extension flexion, 3/5 left dorsiflexion plantar flexion. MOOD: Stable (improved over admission). LABORATORY DATA: 09/13/16: reviewed, see below 08/31/2016 hemoglobin A1c 6.5 IMAGING: MRI of the brain 08/30/2016: Approximate 2 cm subacute infarct extending from the outer capsule of the right basal ganglia rostrally into the morrell radiata adjacent to the body of the right lateral ventricle. There is a small area of associated petechial hemorrhage lying just lateral to the hot known. Right matter changes consistent with moderate underlying microvascular disease are also present. MRA of the neck without contrast 08/30: Vertebral artery origins are obscured by artifact, the study is otherwise negative. MRA without contrast 08/30/2016: Negative study FUNCTIONAL STATUS, Premorbid: Modified independent with ambulation with rolling walker. Dependent modified independent with ADLs ASSESSMENT AND PLAN: 1. Right basal ganglia infarct with increased left hemiparesis resulting in decreased mobility and dysfunctional ADLs: Aspirin, Xarelto, statin. Patient making progress. Continue daily physical and occupational therapy. Rehabilitation nursing for bladder, bowel and medication management 2. Atrial fibrillation: Rate controlled. Continue atenolol, diltiazem, digoxin and Xarelto 3. DVT prophylaxis: As stated above, anticoagulated with Xarelto. Continue SCD. D/cd ASUNCION hose last Tuesday. 4. Bowel: Loose stools resolved. 5. Left hand pain: Resolved. 6. Mood: Improved, stable. 7. Insomnia: Melatonin qhs. 8. Diet/nutrition: Prealbumin wnl. Maintain patient on a low cholesterol diet. 9 Dry eyes: Resolved with NS eye drops prn 10. Left leg cramp: Resolved with Flexeral prn / Vital Signs Vital Sign - Last 24 Hours 09/12/16 09/12/16 09/12/16 09/12/16 14:00 14:13 20:00 22:49 Temp 98.2 97.7 Pulse 74 83 83 Resp 18 18 B/P 123/61 123/61 136/82 136/82 Pulse Ox 94 93 O2 Delivery Room Air Room Air 09/13/16 09/13/16 09/13/16 09/13/16 06:02 06:03 08:43 08:43 Temp 96.7 Pulse 86 86 88 86 Resp 16 B/P 129/86 129/86 129/86 Pulse Ox 95 O2 Delivery Room Air Laboratory Data CBC/BMP Laboratory Tests 09/13/16 07:00 Calcium Level 9.1, Red Blood Count 4.75, Mean Corpuscular Volume 91.2, Mean Corpuscular Hemoglobin 29.9, Mean Corpuscular Hemoglobin Concent 32.8, Red Cell Distribution Width 14.7 H Labs 24H Laboratory Tests 2 09/13/16 07:00: Anion Gap 8, Blood Urea Nitrogen 12, Creatinine 0.82, Sodium Level 145, Potassium Level 4.0, Chloride Level 105, Carbon Dioxide Level 32, Calcium Level 9.1, Glomerular Filtration Rate > 60.0 Allergies Allergies: Coded Allergies: Aspirin (Verified Allergy, Intermediate, HIVES, 10/20/12) Shellfish Allergy (Verified Allergy, Unknown, 10/20/12) Sulfa Drugs (Verified Allergy, Unknown, 10/20/12) Sulfa Drugs Cross Reactors (Verified Allergy, Unknown, 10/20/12) Current Medications Current Medications Current Medications Acetaminophen (Tylenol Tab) 650 mg Q4HP PRN PO MILD PAIN (PS 1-4) Last administered on 09/12/16 09:41; Start 09/07/16 at 14:45; Stop 10/07/16 at 14:44 Artificial Tears (Akwa Tears) 2 drop QIDP PRN OU DRY EYES; Start 09/10/16 at 10 :30; Stop 10/10/16 at 10:29 Aspirin (Ecotrin) 81 mg DAILY PO Last administered on 09/13/16 08:43; Start at 09:00; Stop 10/10/16 at 08:59 Atenolol (Tenormin) 50 mg DAILY PO Last administered on 09/13/16 08:43; Start 09/10/16 at 09:00; Stop 10/10/16 at 08:59 Atenolol (Tenormin) 50 mg QHS PO ; Start 09/07/16 at 21:00; Stop 09/09/16 at 11: 53; Status DC Atorvastatin Calcium (Lipitor) 40 mg DAILY PO Last administered on 09/13/16 08 :43; Start 09/10/16 at 09:00; Stop 10/10/16 at 08:59 Cyclobenzaprine HCl (Flexeril) 10 mg Q6HP PRN PO SPASMS Last administered on 22:32; Start 09/10/16 at 11:45; Stop 10/10/16 at 11:44 Digoxin (Lanoxin) 0.125 mg DAILY PO Last administered on 09/13/16 08:43; Start 09/10/16 at 09:00; Stop 10/10/16 at 08:59 Diltiazem HCl (Cardizem) 30 mg Q6H PO Last administered on 09/10/16 12:19; Start 09/09/16 at 12:00; Stop 09/10/16 at 14:58; Status DC Diltiazem HCl (Cardizem) 30 mg Q8H PO Last administered on 09/13/16 06:03; Start 09/10/16 at 22:00; Stop 10/10/16 at 21:59 Levothyroxine Sodium (Synthroid) 0.1 mg DAILY@06 PO Last administered on 06:03; Start 09/10/16 at 06:00; Stop 10/10/16 at 05:59 Miscellaneous (Unresolved Patient Own Med Order) SEE LABEL COMMENTS UNRESOLVED XX ; Start 09/09/16 at 00:01; Stop 09/09/16 at 20:13; Status DC Multivitamins (Theragram-M) 1 tab DAILY PO Last administered on 09/13/16 08:43 ; Start 09/10/16 at 09:00; Stop 10/10/16 at 08:59 Ondansetron HCl (Zofran) 4 mg Q6HP PRN PO NAUSEA Last administered on 17:11; Start 09/07/16 at 14:45; Stop 10/07/16 at 14:44 Pantoprazole Sodium (Protonix) 40 mg DAILY PO Last administered on 09/13/16 08 :43; Start 09/08/16 at 09:00; Stop 10/08/16 at 08:59 Patient Own Medication (Patient'S Own Med) Melatonin 10mg po qhs QHS PO ; Start 09/09/16 at 21:00; Stop 09/09/16 at 21:00; Status DC Patient Own Medication (Patient'S Own Med) Melatonin 10mg po qhs QHS PO Last administered on 09/12/16 23:30; Start 09/09/16 at 21:00; Stop 10/09/16 at 20:59 Ramelteon (Rozerem) 8 mg QHS PO ; Start 09/08/16 at 21:00; Stop 09/09/16 at 12: 05; Status DC Rivaroxaban (Xarelto) 20 mg DAILY PO Last administered on 09/13/16 08:43; Start 09/10/16 at 09:00; Stop 09/17/16 at 08:59 Vitamin D (Vitamin D) 2,000 units DAILY PO ; Start 09/08/16 at 09:00; Stop 09/09 at 12:43; Status DC Vitamin D (Vitamin D) 2,000 units DAILY PO Last administered on 09/13/16 08:43 ; Start 09/10/16 at 09:00; Stop 10/10/16 at 08:59 ZOILA GRAHAM MD Sep 13, 2016 09:56
[2016-09-13] MEDS: ACETAMINOPHEN TAB 650MG DOSE (2X325MG) PO PRN (11:03)
[2016-09-13] MEDS: FLUoxetine 20 MG CAP PO SCH (11:04)
[2016-09-13 14:00] VITALS: BP 119/63
[2016-09-13 20:00] VITALS: BP 125/78
[2016-09-13] MEDS: MELATONIN 10MG TABLET (PATIENT'S OWN MED) PO SCH (23:41)
[2016-09-14] MEDS: LEVOTHYROXINE 0.1 MG TAB (100 MCG) PO SCH (05:46)
[2016-09-14 06:00] VITALS: BP 143/66
[2016-09-14] MEDS: FLUoxetine 20 MG CAP PO SCH (08:41)
[2016-09-14] MEDS: MULTIVITAMINS/MINERALS THERAP 1 TAB PO SCH (08:41)
[2016-09-14] MEDS: ASPIRIN 81 MG ENTERIC TAB PO SCH (08:41)
[2016-09-14] MEDS: PANTOPRAZOLE 40MG TAB (PROTONIX) PO SCH (08:41)
[2016-09-14] MEDS: VITAMIN D 1,000 INTERNATIONAL UNITS TABLET PO SCH (08:41)
[2016-09-14] MEDS: RIVAROXABAN 20 MG TAB (XARELTO) PO SCH (08:42)
[2016-09-14] MEDS: DIGOXIN 0.125 MG TAB PO SCH (08:42)
[2016-09-14] MEDS: ATORVASTATIN 20 MG TAB PO SCH (08:42)
[2016-09-14] MEDS: ATENOLOL 50 MG TAB PO SCH (08:43)
--- NOTE | 2016-09-14 10:29 | DS.PDOC ---
Hr Internship Discharge Note OPENED IN ERROR Vital Signs/I&O Vital Sign - Last 24 Hours 09/13/16 09/13/16 09/13/16 09/13/16 13:37 14:00 20:00 21:18 Temp 97.6 97.6 Pulse 78 79 73 79 Resp 18 17 B/P 112/72 119/63 125/78 122/80 Pulse Ox 92 94 O2 Delivery Room Air Room Air 09/14/16 09/14/16 09/14/16 09/14/16 05:46 06:00 08:42 08:43 Temp 96.6 Pulse 85 85 83 83 Resp 18 B/P 143/66 143/66 126/85 Pulse Ox 93 O2 Delivery Room Air I&O- Last 24 Hours up to 6 AM 09/14/16 06:00 Intake Total 1140 ml Balance 1140 ml Laboratory Data CBC/BMP Laboratory Tests 09/13/16 07:00 Calcium Level 9.1, Red Blood Count 4.75, Mean Corpuscular Volume 91.2, Mean Corpuscular Hemoglobin 29.9, Mean Corpuscular Hemoglobin Concent 32.8, Red Cell Distribution Width 14.7 H Labs 48H Laboratory Tests 09/13/16 07:00: Anion Gap 8, Blood Urea Nitrogen 12, Creatinine 0.82, Sodium Level 145, Potassium Level 4.0, Chloride Level 105, Carbon Dioxide Level 32, Calcium Level 9.1, Fasting Glucose 124H, Glomerular Filtration Rate > 60.0, White Blood Count 7.0, Red Blood Count 4.75, Hemoglobin 14.2, Hematocrit 43.3, Mean Corpuscular Volume 91.2, Mean Corpuscular Hemoglobin 29.9, Mean Corpuscular Hemoglobin Concent 32.8, Red Cell Distribution Width 14.7H, Platelet Count 265 Medications Medications Current Medications Acetaminophen (Tylenol Tab) 650 mg Q4HP PRN PO MILD PAIN (PS 1-4) Last administered on 09/13/16 11:03; Start 09/07/16 at 14:45; Stop 10/07/16 at 14:44 Artificial Tears (Akwa Tears) 2 drop QIDP PRN OU DRY EYES; Start 09/10/16 at 10 :30; Stop 10/10/16 at 10:29 Aspirin (Ecotrin) 81 mg DAILY PO Last administered on 09/14/16 08:41; Start at 09:00; Stop 10/10/16 at 08:59 Atenolol (Tenormin) 50 mg DAILY PO Last administered on 09/14/16 08:43; Start 09/10/16 at 09:00; Stop 10/10/16 at 08:59 Atenolol (Tenormin) 50 mg QHS PO ; Start 09/07/16 at 21:00; Stop 09/09/16 at 11: 53; Status DC Atorvastatin Calcium (Lipitor) 40 mg DAILY PO Last administered on 09/14/16 08 :42; Start 09/10/16 at 09:00; Stop 10/10/16 at 08:59 Cyclobenzaprine HCl (Flexeril) 10 mg Q6HP PRN PO SPASMS Last administered on 22:32; Start 09/10/16 at 11:45; Stop 10/10/16 at 11:44 Digoxin (Lanoxin) 0.125 mg DAILY PO Last administered on 09/14/16 08:42; Start 09/10/16 at 09:00; Stop 10/10/16 at 08:59 Diltiazem HCl (Cardizem) 30 mg Q6H PO Last administered on 09/10/16 12:19; Start 09/09/16 at 12:00; Stop 09/10/16 at 14:58; Status DC Diltiazem HCl (Cardizem) 30 mg Q8H PO Last administered on 09/14/16 05:46; Start 09/10/16 at 22:00; Stop 10/10/16 at 21:59 Fluoxetine HCl (PROzac) 20 mg DAILY PO Last administered on 09/14/16 08:41; Start 09/13/16 at 09:00; Stop 10/13/16 at 08:59 Levothyroxine Sodium (Synthroid) 0.1 mg DAILY@06 PO Last administered on 05:46; Start 09/10/16 at 06:00; Stop 10/10/16 at 05:59 Miscellaneous (Unresolved Patient Own Med Order) SEE LABEL COMMENTS UNRESOLVED XX ; Start 09/09/16 at 00:01; Stop 09/09/16 at 20:13; Status DC Multivitamins (Theragram-M) 1 tab DAILY PO Last administered on 09/14/16 08:41 ; Start 09/10/16 at 09:00; Stop 10/10/16 at 08:59 Ondansetron HCl (Zofran) 4 mg Q6HP PRN PO NAUSEA Last administered on 17:11; Start 09/07/16 at 14:45; Stop 10/07/16 at 14:44 Pantoprazole Sodium (Protonix) 40 mg DAILY PO Last administered on 09/14/16 08 :41; Start 09/08/16 at 09:00; Stop 10/08/16 at 08:59 Patient Own Medication (Patient'S Own Med) Melatonin 10mg po qhs QHS PO ; Start 09/09/16 at 21:00; Stop 09/09/16 at 21:00; Status DC Patient Own Medication (Patient'S Own Med) Melatonin 10mg po qhs QHS PO Last administered on 09/13/16 23:41; Start 09/09/16 at 21:00; Stop 10/09/16 at 20:59 Ramelteon (Rozerem) 8 mg QHS PO ; Start 09/08/16 at 21:00; Stop 09/09/16 at 12: 05; Status DC Rivaroxaban (Xarelto) 20 mg DAILY PO Last administered on 09/14/16 08:42; Start 09/10/16 at 09:00; Stop 09/17/16 at 08:59 Vitamin D (Vitamin D) 2,000 units DAILY PO ; Start 09/08/16 at 09:00; Stop 09/09 at 12:43; Status DC Vitamin D (Vitamin D) 2,000 units DAILY PO Last administered on 09/14/16 08:41 ; Start 09/10/16 at 09:00; Stop 10/10/16 at 08:59 Scheduled (Calcium 500+D 500-200 mg-Unit) 1 Tab Tab 1 TAB PO QHS (Reported) (Glucosamine Chondroitin) 1 Tab Tab 1 TAB PO BID (Reported) (Restasis) 0.05 % Emu 1 DROP OU BID (Reported) (B Complex) 1 Tab Tab 1 TAB PO DAILY (Reported) Aspirin (Aspirin EC) 81 Mg Tabec 81 MG PO DAILY Atenolol (Atenolol) 50 Mg Tab 50 MG PO DAILY Atorvastatin Calcium (Atorvastatin Calcium) 40 Mg Tab 40 MG PO DAILY (Reported ) Cholecalciferol (Vitamin D) 1,000 Unit Tab 2,000 UNIT PO DAILY (Reported) Digoxin (Digoxin) 0.125 Mg Tab 0.125 MG PO DAILY (Reported) Hydroxypropyl Methylcellulose (Systane Overnight Therapy) 0.3 % Gel 1 DROP OU QHS (Reported) Levothyroxine Sodium (Synthroid) 100 Mcg Tab 100 MCG PO DAILY (Reported) Loteprednol Etabonate (Lotemax) 0.5 % Mita 1 DROP OU TID (Reported) Melatonin (Melatonin) 10 Mg Tab 10 MG PO QHS (Reported) Multivitamins *[facility] STOCKED* (Thera M Plus *[facility]OCK[facility]*) 1 Tab Tab 1 TAB PO DAILY (Reported) Rivaroxaban (Xarelto) 20 Mg Tab 20 MG PO DAILY (Reported) Scheduled PRN Carboxymethylcellulose Sodium (Refresh Tears) 0.5 % Ervin 1 DROP OU TID PRN PRN DRY EYES (Reported) Allergies Coded Allergies: Aspirin (Verified Allergy, Intermediate, HIVES, 10/20/12) Shellfish Allergy (Verified Allergy, Unknown, 10/20/12) Sulfa Drugs (Verified Allergy, Unknown, 10/20/12) Sulfa Drugs Cross Reactors (Verified Allergy, Unknown, 10/20/12) ZOILA GRAHAM MD Sep 14, 2016 10:29 B/P 112/72 119/63 125/78 122/80 Pulse Ox 92 94 O2 Delivery Room Air Room Air 09/14/16 09/14/16 09/14/16 09/14/16 05:46 06:00 08:42 08:43 Temp 96.6 Pulse 85 85 83 83 Resp 18 B/P 143/66 143/66 126/85 Pulse Ox 93 O2 Delivery Room Air I&O- Last 24 Hours up to 6 AM 09/14/16 06:00 Intake Total 1140 ml Balance 1140 ml Laboratory Data CBC/BMP Laboratory Tests 09/13/16 07:00 Calcium Level 9.1, Red Blood Count 4.75, Mean Corpuscular Volume 91.2, Mean Corpuscular Hemoglobin 29.9, Mean Corpuscular Hemoglobin Concent 32.8, Red Cell Distribution Width 14.7 H Labs 48H Laboratory Tests 09/13/16 07:00: Anion Gap 8, Blood Urea Nitrogen 12, Creatinine 0.82, Sodium Level 145, Potassium Level 4.0, Chloride Level 105, Carbon Dioxide Level 32, Calcium Level 9.1, Fasting Glucose 124H, Glomerular Filtration Rate > 60.0, White Blood Count 7.0, Red Blood Count 4.75, Hemoglobin 14.2, Hematocrit 43.3, Mean Corpuscular Volume 91.2, Mean Corpuscular Hemoglobin 29.9, Mean Corpuscular Hemoglobin Concent 32.8, Red Cell Distribution Width 14.7H, Platelet Count 265 Medications Medications Current Medications Acetaminophen (Tylenol Tab) 650 mg Q4HP PRN PO MILD PAIN (PS 1-4) Last administered on 09/13/16 11:03; Start 09/07/16 at 14:45; Stop 10/07/16 at 14:44 Artificial Tears (Akwa Tears) 2 drop QIDP PRN OU DRY EYES; Start 09/10/16 at 10 :30; Stop 10/10/16 at 10:29 Aspirin (Ecotrin) 81 mg DAILY PO Last administered on 09/14/16 08:41; Start at 09:00; Stop 10/10/16 at 08:59 Atenolol (Tenormin) 50 mg DAILY PO Last administered on 09/14/16 08:43; Start 09/10/16 at 09:00; Stop 10/10/16 at 08:59 Atenolol (Tenormin) 50 mg QHS PO ; Start 09/07/16 at 21:00; Stop 09/09/16 at 11: 53; Status DC Atorvastatin Calcium (Lipitor) 40 mg DAILY PO Last administered on 09/14/16 08 :42; Start 09/10/16 at 09:00; Stop 10/10/16 at 08:59 Cyclobenzaprine HCl (Flexeril) 10 mg Q6HP PRN PO SPASMS Last administered on 22:32; Start 09/10/16 at 11:45; Stop 10/10/16 at 11:44 Digoxin (Lanoxin) 0.125 mg DAILY PO Last administered on 09/14/16 08:42; Start 09/10/16 at 09:00; Stop 10/10/16 at 08:59 Diltiazem HCl (Cardizem) 30 mg Q6H PO Last administered on 09/10/16 12:19; Start 09/09/16 at 12:00; Stop 09/10/16 at 14:58; Status DC Diltiazem HCl (Cardizem) 30 mg Q8H PO Last administered on 09/14/16 05:46; Start 09/10/16 at 22:00; Stop 10/10/16 at 21:59 Fluoxetine HCl (PROzac) 20 mg DAILY PO Last administered on 09/14/16 08:41; Start 09/13/16 at 09:00; Stop 10/13/16 at 08:59 Levothyroxine Sodium (Synthroid) 0.1 mg DAILY@06 PO Last administered on 05:46; Start 09/10/16 at 06:00; Stop 10/10/16 at 05:59 Miscellaneous (Unresolved Patient Own Med Order) SEE LABEL COMMENTS UNRESOLVED XX ; Start 09/09/16 at 00:01; Stop 09/09/16 at 20:13; Status DC Multivitamins (Theragram-M) 1 tab DAILY PO Last administered on 09/14/16 08:41 ; Start 09/10/16 at 09:00; Stop 10/10/16 at 08:59 Ondansetron HCl (Zofran) 4 mg Q6HP PRN PO NAUSEA Last administered on 17:11; Start 09/07/16 at 14:45; Stop 10/07/16 at 14:44 Pantoprazole Sodium (Protonix) 40 mg DAILY PO Last administered on 09/14/16 08 :41; Start 09/08/16 at 09:00; Stop 10/08/16 at 08:59 Patient Own Medication (Patient'S Own Med) Melatonin 10mg po qhs QHS PO ; Start 09/09/16 at 21:00; Stop 09/09/16 at 21:00; Status DC Patient Own Medication (Patient'S Own Med) Melatonin 10mg po qhs QHS PO Last administered on 09/13/16 23:41; Start 09/09/16 at 21:00; Stop 10/09/16 at 20:59 Ramelteon (Rozerem) 8 mg QHS PO ; Start 09/08/16 at 21:00; Stop 09/09/16 at 12: 05; Status DC Rivaroxaban (Xarelto) 20 mg DAILY PO Last administered on 09/14/16 08:42; Start 09/10/16 at 09:00; Stop 09/17/16 at 08:59 Vitamin D (Vitamin D) 2,000 units DAILY PO ; Start 09/08/16 at 09:00; Stop 09/09 at 12:43; Status DC Vitamin D (Vitamin D) 2,000 units DAILY PO Last administered on 09/14/16 08:41 ; Start 09/10/16 at 09:00; Stop 10/10/16 at 08:59 Scheduled (Calcium 500+D 500-200 mg-Unit) 1 Tab Tab 1 TAB PO QHS (Reported) (Glucosamine Chondroitin) 1 Tab Tab 1 TAB PO BID (Reported) (Restasis) 0.05 % Emu 1 DROP OU BID (Reported) (B Complex) 1 Tab Tab 1 TAB PO DAILY (Reported) Aspirin (Aspirin EC) 81 Mg Tabec 81 MG PO DAILY Atenolol (Atenolol) 50 Mg Tab 50 MG PO DAILY Atorvastatin Calcium (Atorvastatin Calcium) 40 Mg Tab 40 MG PO DAILY (Reported ) Cholecalciferol (Vitamin D) 1,000 Unit Tab 2,000 UNIT PO DAILY (Reported) Digoxin (Digoxin) 0.125 Mg Tab 0.125 MG PO DAILY (Reported) Hydroxypropyl Methylcellulose (Systane Overnight Therapy) 0.3 % Gel 1 DROP OU QHS (Reported) Levothyroxine Sodium (Synthroid) 100 Mcg Tab 100 MCG PO DAILY (Reported) Loteprednol Etabonate (Lotemax) 0.5 % Mita 1 DROP OU TID (Reported) Melatonin (Melatonin) 10 Mg Tab 10 MG PO QHS (Reported) Multivitamins *[facility] STOCK[facility]* (Thera M Plus *[facility]OCK[facility]*) 1 Tab Tab 1 TAB PO DAILY (Reported) Rivaroxaban (Xarelto) 20 Mg Tab 20 MG PO DAILY (Reported) Scheduled PRN Carboxymethylcellulose Sodium (Refresh Tears) 0.5 % Ervin 1 DROP OU TID PRN PRN DRY EYES (Reported) Allergies Coded Allergies: Aspirin (Verified Allergy, Intermediate, HIVES, 10/20/12) Shellfish Allergy (Verified Allergy, Unknown, 10/20/12) Sulfa Drugs (Verified Allergy, Unknown, 10/20/12) Sulfa Drugs Cross Reactors (Verified Allergy, Unknown, 10/20/12) ZOILA GRAHAM MD Sep 14, 2016 10:29
--- NOTE | 2016-09-14 13:01 | IPNPDOC ---
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 PAST MEDICAL HISTORY: Hypertension Dyslipidemia Atrial fibrillation on Xarelto Hypothyroidism CVA 07/02/2016 status post TPA at [facility] PAST SURGICAL HISTORY: Right ankle fracture status post ORIF Bilateral total knee replacements (2006 and 2012) ALLERGIES: Sulfa drugs [note: Patient has reported allergy to aspirin and shellfish in the EMR. I discussed her allergies and she reports an episode 20 years ago of hives that she relates to taking aspirin and eating shellfish simultaneously. He further states that she is able to have aspirin independently without adverse side effects and eat shellfish independently without side effects. She is currently on aspirin without any adverse side effects) MEDICATIONS: Atenolol 50 mg by mouth daily at bedtime Diltiazam 30mg q8h Aspirin 81 mg by mouth daily Protonix 40mg daily Lipitor 40 mg by mouth daily Vitamin D 2000 units by mouth daily Digoxin 0.125 mg by mouth daily Multivitamin 1 tab by mouth daily Xarelto 20 mg by mouth daily Synthroid 0.1 mg by mouth daily Acetaminophen 650 mg every 4 hours when necessary mild pain or fever Flexeril 10mg tid prn Melatonin 1 tab po qhs Zofran 4 mg PO every 8 hours when necessary for nausea / vomiting SUBJECTIVE: Patient complaints she doesnt like the no added salt diet, she want regular diet and wants room service diet. She complaints of left LL episodic numbness. Occurs when seated in chair, resolves with legs elevated. No calf tenderness. No N/V, FLORES, new weakness, diaphoresis, palpitations, CP or SOB. VITAL SIGNS: 96.6F, pulse 83, respiratory rate of 18, blood pressure 126/85, 93 % saturation on room air PHYSICAL EXAMINATION: GENERAL: Well nourished, well developed, sitting up in bed, no acute distress. HEENT: Normocephalic, atraumatic. No facial droop. PERRL, EOMI CARDIOVASCULAR: S1, S2, irregular rate. No significant right lower limb edema or calf tenderness . +left LL dependent edema and rubor remits with leg elevated , no calf tenderness left . LUNGS: Clear to auscultation bilaterally no wheezing, rhonchi or rales ABDOMEN: Soft, nontender, nondistended. Positive normoactive bowel sounds throughout. NEUROLOGICAL: Alert and oriented x 3. Answers all questions appropriately. MMT: 5/5 strength right upper and lower limb in all major muscle groups. 5/5 strength left upper limb in all major muscle groups. 4/5 left hip flexors, 5/5 left knee extension flexion, 3/5 left dorsiflexion plantar flexion. MOOD: Stable (improved over admission). LABORATORY DATA: 09/13/16: reviewed, see below 08/31/2016 hemoglobin A1c 6.5 IMAGING: MRI of the brain 08/30/2016: Approximate 2 cm subacute infarct extending from the outer capsule of the right basal ganglia rostrally into the morrell radiata adjacent to the body of the right lateral ventricle. There is a small area of associated petechial hemorrhage lying just lateral to the hot known. Right matter changes consistent with moderate underlying microvascular disease are also present. MRA of the neck without contrast 08/30: Vertebral artery origins are obscured by artifact, the study is otherwise negative. MRA without contrast 08/30/2016: Negative study FUNCTIONAL STATUS, Premorbid: Modified independent with ambulation with rolling walker. Dependent modified independent with ADLs ASSESSMENT AND PLAN: 1. Right basal ganglia infarct with increased left hemiparesis resulting in decreased mobility and dysfunctional ADLs: Aspirin, Xarelto, statin. Patient making progress. Will reorder TEDS. Leg elevation when not in therapy. Continue daily physical and occupational therapy. Rehabilitation nursing for bladder, bowel and medication management 2. Atrial fibrillation: Rate controlled. Continue atenolol, diltiazem, digoxin and Xarelto 3. DVT prophylaxis: As stated above, anticoagulated with Xarelto. Continue SCD. D/cd ASUNCION hose last Tuesday. 4. Bowel: Loose stools resolved. 5. Left hand pain: Resolved. 6. Mood: Stable. 7. Insomnia: Melatonin qhs. 8. Diet/nutrition: Prealbumin wnl. Maintain patient on a low cholesterol diet. 9 Dry eyes: Resolved with NS eye drops prn 10. Left leg cramp: Resolved with Flexeril prn / Vital Signs Vital Sign - Last 24 Hours 09/13/16 09/13/16 09/13/16 09/13/16 13:37 14:00 20:00 21:18 Temp 97.6 97.6 Pulse 78 79 73 79 Resp 18 17 B/P 112/72 119/63 125/78 122/80 Pulse Ox 92 94 O2 Delivery Room Air Room Air 09/14/16 09/14/16 09/14/16 09/14/16 05:46 06:00 08:42 08:43 Temp 96.6 Pulse 85 85 83 83 Resp 18 B/P 143/66 143/66 126/85 Pulse Ox 93 O2 Delivery Room Air Allergies Allergies: Coded Allergies: Aspirin (Verified Allergy, Intermediate, HIVES, 10/20/12) Shellfish Allergy (Verified Allergy, Unknown, 10/20/12) Sulfa Drugs (Verified Allergy, Unknown, 10/20/12) Sulfa Drugs Cross Reactors (Verified Allergy, Unknown, 10/20/12) Current Medications Current Medications Current Medications Acetaminophen (Tylenol Tab) 650 mg Q4HP PRN PO MILD PAIN (PS 1-4) Last administered on 09/13/16 11:03; Start 09/07/16 at 14:45; Stop 10/07/16 at 14:44 Artificial Tears (Akwa Tears) 2 drop QIDP PRN OU DRY EYES; Start 09/10/16 at 10 :30; Stop 10/10/16 at 10:29 Aspirin (Ecotrin) 81 mg DAILY PO Last administered on 09/14/16 08:41; Start at 09:00; Stop 10/10/16 at 08:59 Atenolol (Tenormin) 50 mg DAILY PO Last administered on 09/14/16 08:43; Start 09/10/16 at 09:00; Stop 10/10/16 at 08:59 Atenolol (Tenormin) 50 mg QHS PO ; Start 09/07/16 at 21:00; Stop 09/09/16 at 11: 53; Status DC Atorvastatin Calcium (Lipitor) 40 mg DAILY PO Last administered on 09/14/16 08 :42; Start 09/10/16 at 09:00; Stop 10/10/16 at 08:59 Cyclobenzaprine HCl (Flexeril) 10 mg Q6HP PRN PO SPASMS Last administered on 22:32; Start 09/10/16 at 11:45; Stop 10/10/16 at 11:44 Digoxin (Lanoxin) 0.125 mg DAILY PO Last administered on 09/14/16 08:42; Start 09/10/16 at 09:00; Stop 10/10/16 at 08:59 Diltiazem HCl (Cardizem) 30 mg Q6H PO Last administered on 09/10/16 12:19; Start 09/09/16 at 12:00; Stop 09/10/16 at 14:58; Status DC Diltiazem HCl (Cardizem) 30 mg Q8H PO Last administered on 09/14/16 05:46; Start 09/10/16 at 22:00; Stop 10/10/16 at 21:59 Fluoxetine HCl (PROzac) 20 mg DAILY PO Last administered on 09/14/16 08:41; Start 09/13/16 at 09:00; Stop 10/13/16 at 08:59 Levothyroxine Sodium (Synthroid) 0.1 mg DAILY@06 PO Last administered on 05:46; Start 09/10/16 at 06:00; Stop 10/10/16 at 05:59 Miscellaneous (Unresolved Patient Own Med Order) SEE LABEL COMMENTS UNRESOLVED XX ; Start 09/09/16 at 00:01; Stop 09/09/16 at 20:13; Status DC Multivitamins (Theragram-M) 1 tab DAILY PO Last administered on 09/14/16 08:41 ; Start 09/10/16 at 09:00; Stop 10/10/16 at 08:59 Ondansetron HCl (Zofran) 4 mg Q6HP PRN PO NAUSEA Last administered on 17:11; Start 09/07/16 at 14:45; Stop 10/07/16 at 14:44 Pantoprazole Sodium (Protonix) 40 mg DAILY PO Last administered on 09/14/16 08 :41; Start 09/08/16 at 09:00; Stop 10/08/16 at 08:59 Patient Own Medication (Patient'S Own Med) Melatonin 10mg po qhs QHS PO ; Start 09/09/16 at 21:00; Stop 09/09/16 at 21:00; Status DC Patient Own Medication (Patient'S Own Med) Melatonin 10mg po qhs QHS PO Last administered on 09/13/16 23:41; Start 09/09/16 at 21:00; Stop 10/09/16 at 20:59 Ramelteon (Rozerem) 8 mg QHS PO ; Start 09/08/16 at 21:00; Stop 09/09/16 at 12: 05; Status DC Rivaroxaban (Xarelto) 20 mg DAILY PO Last administered on 09/14/16 08:42; Start 09/10/16 at 09:00; Stop 09/17/16 at 08:59 Vitamin D (Vitamin D) 2,000 units DAILY PO ; Start 09/08/16 at 09:00; Stop 09/09 at 12:43; Status DC Vitamin D (Vitamin D) 2,000 units DAILY PO Last administered on 09/14/16 08:41 ; Start 09/10/16 at 09:00; Stop 10/10/16 at 08:59 ZOILA GRAHAM MD Sep 14, 2016 13:00
[2016-09-14 14:00] VITALS: BP 135/79
[2016-09-14] MEDS: ACETAMINOPHEN TAB 650MG DOSE (2X325MG) PO PRN (16:42)
[2016-09-14 20:00] VITALS: BP 128/87
[2016-09-14] MEDS: CYCLOBENZAPRINE 10 MG TAB PO PRN (23:24)
[2016-09-14] MEDS: MELATONIN 10MG TABLET (PATIENT'S OWN MED) PO SCH (23:25)
[2016-09-15] MEDS: ACETAMINOPHEN TAB 650MG DOSE (2X325MG) PO PRN ×2 (00:30→10:19)
[2016-09-15 06:00] VITALS: BP 138/87
[2016-09-15] MEDS: LEVOTHYROXINE 0.1 MG TAB (100 MCG) PO SCH (06:04)
[2016-09-15] MEDS: ATORVASTATIN 20 MG TAB PO SCH (09:06)
[2016-09-15] MEDS: ASPIRIN 81 MG ENTERIC TAB PO SCH (09:06)
[2016-09-15] MEDS: ATENOLOL 50 MG TAB PO SCH (09:08)
[2016-09-15] MEDS: FLUoxetine 20 MG CAP PO SCH (09:08)
[2016-09-15] MEDS: DIGOXIN 0.125 MG TAB PO SCH (09:08)
[2016-09-15] MEDS: MULTIVITAMINS/MINERALS THERAP 1 TAB PO SCH (09:09)
[2016-09-15] MEDS: RIVAROXABAN 20 MG TAB (XARELTO) PO SCH (09:09)
[2016-09-15] MEDS: PANTOPRAZOLE 40MG TAB (PROTONIX) PO SCH (09:09)
[2016-09-15] MEDS: VITAMIN D 1,000 INTERNATIONAL UNITS TABLET PO SCH (09:09)
[2016-09-15] MEDS: POLYVINYL ALCOHOL OPHTH SOLN 15 ML(LIQUITEARS) OU PRN ×2 (09:15→15:14)
--- NOTE | 2016-09-15 11:51 | IPNPDOC ---
Marketing Proposal Specialist Progress Note PROGRESS NOTE DATE OF ADMISSION: 09/09/2016 DATE OF SERVICE: 09/15/2016 IDENTIFICATION STATEMENT: Patient is a 71-year-old woman with increased left hemiparesis secondary to right basal ganglia CVA admitted for comprehensive integrated inpatient rehabilitation. PAST MEDICAL HISTORY: Hypertension Dyslipidemia Atrial fibrillation on Xarelto Hypothyroidism CVA 07/02/2016 status post TPA at [facility] PAST SURGICAL HISTORY: Right ankle fracture status post ORIF Bilateral total knee replacements (2006 and 2012) ALLERGIES: Sulfa drugs [note: Patient has reported allergy to aspirin and shellfish in the EMR. I discussed her allergies and she reports an episode 20 years ago of hives that she relates to taking aspirin and eating shellfish simultaneously. He further states that she is able to have aspirin independently without adverse side effects and eat shellfish independently without side effects. She is currently on aspirin without any adverse side effects) MEDICATIONS: Atenolol 50 mg by mouth daily at bedtime Diltiazam 30mg q8h Aspirin 81 mg by mouth daily Protonix 40mg daily Lipitor 40 mg by mouth daily Vitamin D 2000 units by mouth daily Digoxin 0.125 mg by mouth daily Multivitamin 1 tab by mouth daily Xarelto 20 mg by mouth daily Synthroid 0.1 mg by mouth daily Acetaminophen 650 mg every 4 hours when necessary mild pain or fever Flexeril 10mg tid prn Melatonin 1 tab po qhs Zofran 4 mg PO every 8 hours when necessary for nausea / vomiting SUBJECTIVE: Patient now on regular diet and states much happier. Has right shoulder pain, states its been longstanding and usually uses [place]. Left leg numbness resolved, using TEDs and elevating when not in therapy. No N/V , FLORES, new weakness, diaphoresis, palpitations, CP or SOB. VITAL SIGNS: 97.6F, pulse 64, respiratory rate of 18, blood pressure 130/78, 95 % saturation on room air PHYSICAL EXAMINATION: GENERAL: Well nourished, well developed, sitting up in bed, no acute distress. HEENT: Normocephalic, atraumatic. No facial droop. PERRL, EOMI CARDIOVASCULAR: S1, S2, irregular rate. +TEDs b/l, no significant lower limb edema or calf tenderness . LUNGS: Clear to auscultation bilaterally no wheezing, rhonchi or rales ABDOMEN: Soft, nontender, nondistended. Positive normoactive bowel sounds throughout. NEUROLOGICAL: Alert and oriented x 3. Answers all questions appropriately. MMT: 5/5 strength right upper and lower limb in all major muscle groups. 5/5 strength left upper limb in all major muscle groups. 4/5 left hip flexors, 5/5 left knee extension flexion, 3/5 left dorsiflexion plantar flexion. MOOD: Stable (improved over admission). LABORATORY DATA: 09/13/16: WBC. 7.0, K 4.0, Cr 0.82 08/31/2016 hemoglobin A1c 6.5 IMAGING: MRI of the brain 08/30/2016: Approximate 2 cm subacute infarct extending from the outer capsule of the right basal ganglia rostrally into the morrell radiata adjacent to the body of the right lateral ventricle. There is a small area of associated petechial hemorrhage lying just lateral to the hot known. Right matter changes consistent with moderate underlying microvascular disease are also present. MRA of the neck without contrast 08/30: Vertebral artery origins are obscured by artifact, the study is otherwise negative. MRA without contrast 08/30/2016: Negative study FUNCTIONAL STATUS, Premorbid: Modified independent with ambulation with rolling walker. Dependent modified independent with ADLs ASSESSMENT AND PLAN: 1. Right basal ganglia infarct with increased left hemiparesis resulting in decreased mobility and dysfunctional ADLs: Aspirin, Xarelto, statin. Patient making progress. Continue TEDS and leg elevation when not in therapy. Continue daily physical and occupational therapy. Rehabilitation nursing for bladder, bowel and medication management 2. Atrial fibrillation: Rate controlled. Continue atenolol, diltiazem, digoxin and Xarelto 3. DVT prophylaxis: As stated above, anticoagulated with Xarelto. Continue SCD & TEDs. 4. Bowel: Loose stools resolved. 5. Pain: left hand pain, resolved. Right shoulder pain-Flector patch 6. Mood: Stable. Continue Prozac. 7. Insomnia: Melatonin qhs. 8. Diet/nutrition: Prealbumin wnl. Maintain patient on a low cholesterol diet. 9 Dry eyes: Resolved with NS eye drops prn 10. Left leg cramp: Episodic, well treated with Flexeril prn / Vital Signs Vital Sign - Last 24 Hours 09/14/16 09/14/16 09/14/16 09/14/16 14:00 14:52 20:00 21:32 Temp 97.2 97.5 Pulse 87 87 92 73 Resp 18 20 B/P 135/79 135/79 128/87 135/78 Pulse Ox 94 94 O2 Delivery Room Air Room Air 09/15/16 09/15/16 09/15/16 09/15/16 06:00 06:05 09:08 09:08 Temp 97.6 Pulse 76 76 64 64 Resp 17 B/P 138/87 138/87 130/78 Pulse Ox 95 O2 Delivery Room Air Allergies Allergies: Coded Allergies: Aspirin (Verified Allergy, Intermediate, HIVES, 10/20/12) Shellfish Allergy (Verified Allergy, Unknown, 10/20/12) Sulfa Drugs (Verified Allergy, Unknown, 10/20/12) Sulfa Drugs Cross Reactors (Verified Allergy, Unknown, 10/20/12) Current Medications Current Medications Current Medications Acetaminophen (Tylenol Tab) 650 mg Q4HP PRN PO MILD PAIN (PS 1-4) Last administered on 09/15/16 10:19; Start 09/07/16 at 14:45; Stop 10/07/16 at 14:44 Artificial Tears (Akwa Tears) 2 drop QIDP PRN OU DRY EYES Last administered on 09/15/16 09:15; Start 09/10/16 at 10:30; Stop 10/10/16 at 10:29 Aspirin (Ecotrin) 81 mg DAILY PO Last administered on 09/15/16 09:06; Start at 09:00; Stop 10/10/16 at 08:59 Atenolol (Tenormin) 50 mg DAILY PO Last administered on 09/15/16 09:08; Start 09/10/16 at 09:00; Stop 10/10/16 at 08:59 Atenolol (Tenormin) 50 mg QHS PO ; Start 09/07/16 at 21:00; Stop 09/09/16 at 11: 53; Status DC Atorvastatin Calcium (Lipitor) 40 mg DAILY PO Last administered on 09/15/16 09: 06; Start 09/10/16 at 09:00; Stop 10/10/16 at 08:59 Cyclobenzaprine HCl (Flexeril) 10 mg Q6HP PRN PO SPASMS Last administered on 23:24; Start 09/10/16 at 11:45; Stop 10/10/16 at 11:44 Diclofenac Epolamine (Flector 1.3%) 1 patch Q12H TOP ; Start 09/15/16 at 09:00; Stop 10/15/16 at 08:59 Digoxin (Lanoxin) 0.125 mg DAILY PO Last administered on 09/15/16 09:08; Start 09/10/16 at 09:00; Stop 10/10/16 at 08:59 Diltiazem HCl (Cardizem) 30 mg Q6H PO Last administered on 09/10/16 12:19; Start 09/09/16 at 12:00; Stop 09/10/16 at 14:58; Status DC Diltiazem HCl (Cardizem) 30 mg Q8H PO Last administered on 09/15/16 06:05; Start 09/10/16 at 22:00; Stop 10/10/16 at 21:59 Fluoxetine HCl (PROzac) 20 mg DAILY PO Last administered on 09/15/16 09:08; Start 09/13/16 at 09:00; Stop 10/13/16 at 08:59 Levothyroxine Sodium (Synthroid) 0.1 mg DAILY@06 PO Last administered on 06:04; Start 09/10/16 at 06:00; Stop 10/10/16 at 05:59 Miscellaneous (Unresolved Patient Own Med Order) SEE LABEL COMMENTS UNRESOLVED XX ; Start 09/09/16 at 00:01; Stop 09/09/16 at 20:13; Status DC Multivitamins (Theragram-M) 1 tab DAILY PO Last administered on 09/15/16 09:09 ; Start 09/10/16 at 09:00; Stop 10/10/16 at 08:59 Ondansetron HCl (Zofran) 4 mg Q6HP PRN PO NAUSEA Last administered on 17:11; Start 09/07/16 at 14:45; Stop 10/07/16 at 14:44 Pantoprazole Sodium (Protonix) 40 mg DAILY PO Last administered on 09/15/16 09: 09; Start 09/08/16 at 09:00; Stop 10/08/16 at 08:59 Patient Own Medication (Patient'S Own Med) Melatonin 10mg po qhs QHS PO ; Start 09/09/16 at 21:00; Stop 09/09/16 at 21:00; Status DC Patient Own Medication (Patient'S Own Med) Melatonin 10mg po qhs QHS PO Last administered on 09/14/16 23:25; Start 09/09/16 at 21:00; Stop 10/09/16 at 20:59 Ramelteon (Rozerem) 8 mg QHS PO ; Start 09/08/16 at 21:00; Stop 09/09/16 at 12: 05; Status DC Rivaroxaban (Xarelto) 20 mg DAILY PO Last administered on 09/15/16 09:09; Start 09/10/16 at 09:00; Stop 09/17/16 at 08:59 Vitamin D (Vitamin D) 2,000 units DAILY PO ; Start 09/08/16 at 09:00; Stop 09/09 at 12:43; Status DC Vitamin D (Vitamin D) 2,000 units DAILY PO Last administered on 09/15/16 09:09 ; Start 09/10/16 at 09:00; Stop 10/10/16 at 08:59 ZOILA GRAHAM MD Sep 15, 2016 11:51
[2016-09-15] MEDS: DICLOFENAC EPOLAMINE 1.3 % PATCH TOP SCH ×2 (13:33→21:48)
[2016-09-15 14:00] VITALS: BP 116/62
[2016-09-15 19:39] VITALS: BP 119/74
[2016-09-15] MEDS: CYCLOBENZAPRINE 10 MG TAB PO PRN (23:42)
[2016-09-15] MEDS: MELATONIN 10MG TABLET (PATIENT'S OWN MED) PO SCH (23:42)
[2016-09-16] MEDS: ACETAMINOPHEN TAB 650MG DOSE (2X325MG) PO PRN ×2 (00:38→08:56)
[2016-09-16] MEDS: LEVOTHYROXINE 0.1 MG TAB (100 MCG) PO SCH (06:40)
[2016-09-16 06:45] VITALS: BP 138/83
[2016-09-16] MEDS: ATENOLOL 50 MG TAB PO SCH (08:54)
[2016-09-16] MEDS: PANTOPRAZOLE 40MG TAB (PROTONIX) PO SCH (08:54)
[2016-09-16] MEDS: ASPIRIN 81 MG ENTERIC TAB PO SCH (08:54)
[2016-09-16] MEDS: FLUoxetine 20 MG CAP PO SCH (08:54)
[2016-09-16] MEDS: MULTIVITAMINS/MINERALS THERAP 1 TAB PO SCH (08:54)
[2016-09-16] MEDS: VITAMIN D 1,000 INTERNATIONAL UNITS TABLET PO SCH (08:54)
[2016-09-16] MEDS: RIVAROXABAN 20 MG TAB (XARELTO) PO SCH (08:54)
[2016-09-16] MEDS: ATORVASTATIN 20 MG TAB PO SCH (08:54)
[2016-09-16] MEDS: DIGOXIN 0.125 MG TAB PO SCH (08:55)
[2016-09-16] MEDS: DICLOFENAC EPOLAMINE 1.3 % PATCH TOP SCH ×2 (08:55→21:39)
--- NOTE | 2016-09-16 10:59 | IPNPDOC ---
Primary Special Educator Progress Note PROGRESS NOTE DATE OF ADMISSION: 09/09/2016 DATE OF SERVICE: 09/16/2016 IDENTIFICATION STATEMENT: Patient is a 71-year-old woman with increased left hemiparesis secondary to right basal ganglia CVA admitted for comprehensive integrated inpatient rehabilitation. PAST MEDICAL HISTORY: Hypertension Dyslipidemia Atrial fibrillation on Xarelto Hypothyroidism CVA 07/02/2016 status post TPA at [facility] PAST SURGICAL HISTORY: Right ankle fracture status post ORIF Bilateral total knee replacements (2006 and 2012) ALLERGIES: Sulfa drugs [note: Patient has reported allergy to aspirin and shellfish in the EMR. I discussed her allergies and she reports an episode 20 years ago of hives that she relates to taking aspirin and eating shellfish simultaneously. He further states that she is able to have aspirin independently without adverse side effects and eat shellfish independently without side effects. She is currently on aspirin without any adverse side effects) MEDICATIONS: Atenolol 50 mg by mouth daily at bedtime Diltiazam 30mg q8h Aspirin 81 mg by mouth daily Protonix 40mg daily Lipitor 40 mg by mouth daily Vitamin D 2000 units by mouth daily Digoxin 0.125 mg by mouth daily Multivitamin 1 tab by mouth daily Xarelto 20 mg by mouth daily Synthroid 0.1 mg by mouth daily Acetaminophen 650 mg every 4 hours when necessary mild pain or fever Flexeril 10mg tid prn Flector patch 1 q12h right shoulder Melatonin 1 tab po qhs Zofran 4 mg PO every 8 hours when necessary for nausea / vomiting SUBJECTIVE: Patient w/o complaints. Decreased right shoulder pain, patch helpful. Slept well. No N/V, FLORES, new weakness, diaphoresis, palpitations, CP or SOB. VITAL SIGNS: 96.3F, pulse 93, respiratory rate of 19, blood pressure 138/83, 94 % saturation on room air PHYSICAL EXAMINATION: GENERAL: Well nourished, well developed, and lying in bed, no acute distress. HEENT: Normocephalic, atraumatic. No facial droop. PERRL, EOMI CARDIOVASCULAR: S1, S2, irregular rate. +TEDs b/l, no significant lower limb edema or calf tenderness . LUNGS: Clear to auscultation bilaterally no wheezing, rhonchi or rales ABDOMEN: Soft, nontender, nondistended. Positive normoactive bowel sounds throughout. NEUROLOGICAL: Alert and oriented x 3. Answers all questions appropriately. MMT: 5/5 strength right upper and lower limb in all major muscle groups. 5/5 strength left upper limb in all major muscle groups. 5/5 left hip flexors, 5/5 left knee extension flexion, 3/5 left dorsiflexion/ plantar flexion, 4/5 EHL. MOOD: Stable (improved over admission). LABORATORY DATA: 09/13/16: WBC. 7.0, K 4.0, Cr 0.82 08/31/2016 hemoglobin A1c 6.5 IMAGING: MRI of the brain 08/30/2016: Approximate 2 cm subacute infarct extending from the outer capsule of the right basal ganglia rostrally into the morrell radiata adjacent to the body of the right lateral ventricle. There is a small area of associated petechial hemorrhage lying just lateral to the hot known. Right matter changes consistent with moderate underlying microvascular disease are also present. MRA of the neck without contrast 08/30: Vertebral artery origins are obscured by artifact, the study is otherwise negative. MRA without contrast 08/30/2016: Negative study FUNCTIONAL STATUS, Premorbid: Modified independent with ambulation with rolling walker. Dependent modified independent with ADLs ASSESSMENT AND PLAN: 1. Right basal ganglia infarct with increased left hemiparesis resulting in decreased mobility and dysfunctional ADLs: Aspirin, Xarelto, statin. Patient making progress. Continue TEDS and leg elevation when not in therapy. Continue daily physical and occupational therapy. Rehabilitation nursing for bladder, bowel and medication management 2. Atrial fibrillation: Rate controlled. Continue atenolol, diltiazem, digoxin and Xarelto 3. DVT prophylaxis: Anticoagulated with Xarelto. Continue SCD & TEDs. 4. Bowel: Loose stools resolved. 5. Pain: left hand pain, resolved. Right shoulder pain-decreased, continue Flector patch 6. Mood: Stable. Continue Prozac. 7. Insomnia: Melatonin qhs. 8. Diet/nutrition: Prealbumin wnl. Maintain patient current diet. 9 Dry eyes: Resolved with NS eye drops prn 10. Left leg cramp: Episodic, well treated with Flexeril prn / Vital Signs Vital Sign - Last 24 Hours 09/15/16 09/15/16 09/15/16 09/15/16 13:38 14:00 19:39 21:47 Temp 98.4 97.7 Pulse 65 64 68 81 Resp 18 19 B/P 126/80 116/62 119/74 132/71 Pulse Ox 95 93 O2 Delivery Room Air Room Air 09/16/16 09/16/16 09/16/16 09/16/16 06:40 06:45 08:54 08:55 Temp 96.3 Pulse 85 93 93 93 Resp 19 B/P 138/83 138/83 138/83 Pulse Ox 94 O2 Delivery Room Air Allergies Allergies: Coded Allergies: Aspirin (Verified Allergy, Intermediate, HIVES, 10/20/12) Shellfish Allergy (Verified Allergy, Unknown, 10/20/12) Sulfa Drugs (Verified Allergy, Unknown, 10/20/12) Sulfa Drugs Cross Reactors (Verified Allergy, Unknown, 10/20/12) Current Medications Current Medications Current Medications Acetaminophen (Tylenol Tab) 650 mg Q4HP PRN PO MILD PAIN (PS 1-4) Last administered on 09/16/16 08:56; Start 09/07/16 at 14:45; Stop 10/07/16 at 14:44 Artificial Tears (Akwa Tears) 2 drop QIDP PRN OU DRY EYES Last administered on 09/15/16 15:14; Start 09/10/16 at 10:30; Stop 10/10/16 at 10:29 Aspirin (Ecotrin) 81 mg DAILY PO Last administered on 09/16/16 08:54; Start at 09:00; Stop 10/10/16 at 08:59 Atenolol (Tenormin) 50 mg DAILY PO Last administered on 09/16/16 08:54; Start 09/10/16 at 09:00; Stop 10/10/16 at 08:59 Atenolol (Tenormin) 50 mg QHS PO ; Start 09/07/16 at 21:00; Stop 09/09/16 at 11: 53; Status DC Atorvastatin Calcium (Lipitor) 40 mg DAILY PO Last administered on 09/16/16 08: 54; Start 09/10/16 at 09:00; Stop 10/10/16 at 08:59 Cyclobenzaprine HCl (Flexeril) 10 mg Q6HP PRN PO SPASMS Last administered on 23:42; Start 09/10/16 at 11:45; Stop 10/10/16 at 11:44 Diclofenac Epolamine (Flector 1.3%) 1 patch Q12H TOP Last administered on 08:55; Start 09/15/16 at 09:00; Stop 10/15/16 at 08:59 Digoxin (Lanoxin) 0.125 mg DAILY PO Last administered on 09/16/16 08:55; Start 09/10/16 at 09:00; Stop 10/10/16 at 08:59 Diltiazem HCl (Cardizem) 30 mg Q6H PO Last administered on 09/10/16 12:19; Start 09/09/16 at 12:00; Stop 09/10/16 at 14:58; Status DC Diltiazem HCl (Cardizem) 30 mg Q8H PO Last administered on 09/16/16 06:40; Start 09/10/16 at 22:00; Stop 10/10/16 at 21:59 Fluoxetine HCl (PROzac) 20 mg DAILY PO Last administered on 09/16/16 08:54; Start 09/13/16 at 09:00; Stop 10/13/16 at 08:59 Levothyroxine Sodium (Synthroid) 0.1 mg DAILY@06 PO Last administered on 06:40; Start 09/10/16 at 06:00; Stop 10/10/16 at 05:59 Miscellaneous (Unresolved Patient Own Med Order) SEE LABEL COMMENTS UNRESOLVED XX ; Start 09/09/16 at 00:01; Stop 09/09/16 at 20:13; Status DC Multivitamins (Theragram-M) 1 tab DAILY PO Last administered on 09/16/16 08:54 ; Start 09/10/16 at 09:00; Stop 10/10/16 at 08:59 Ondansetron HCl (Zofran) 4 mg Q6HP PRN PO NAUSEA Last administered on 17:11; Start 09/07/16 at 14:45; Stop 10/07/16 at 14:44 Pantoprazole Sodium (Protonix) 40 mg DAILY PO Last administered on 09/16/16 08: 54; Start 09/08/16 at 09:00; Stop 10/08/16 at 08:59 Patient Own Medication (Patient'S Own Med) Melatonin 10mg po qhs QHS PO ; Start 09/09/16 at 21:00; Stop 09/09/16 at 21:00; Status DC Patient Own Medication (Patient'S Own Med) Melatonin 10mg po qhs QHS PO Last administered on 09/15/16 23:42; Start 09/09/16 at 21:00; Stop 10/09/16 at 20:59 Ramelteon (Rozerem) 8 mg QHS PO ; Start 09/08/16 at 21:00; Stop 09/09/16 at 12: 05; Status DC Rivaroxaban (Xarelto) 20 mg DAILY PO Last administered on 09/16/16 08:54; Start 09/10/16 at 09:00; Stop 09/17/16 at 08:59 Vitamin D (Vitamin D) 2,000 units DAILY PO ; Start 09/08/16 at 09:00; Stop 09/09 at 12:43; Status DC Vitamin D (Vitamin D) 2,000 units DAILY PO Last administered on 09/16/16 08:54 ; Start 09/10/16 at 09:00; Stop 10/10/16 at 08:59 ZOILA GRAHAM MD Sep 16, 2016 10:59
[2016-09-16 14:00] VITALS: BP 134/65
[2016-09-16] MEDS: CYCLOBENZAPRINE 10 MG TAB PO PRN ×2 (14:28→23:34)
[2016-09-16] MEDS: ONDANSETRON 4 MG TAB (S0181) PO PRN (19:21)
[2016-09-16 20:00] VITALS: BP 128/60
[2016-09-16] MEDS: MELATONIN 10MG TABLET (PATIENT'S OWN MED) PO SCH (23:34)
[2016-09-17 06:00] VITALS: BP 120/71
[2016-09-17] MEDS: LEVOTHYROXINE 0.1 MG TAB (100 MCG) PO SCH (06:50)
[2016-09-17 07:32] LABS: MEAN CORPUSCULAR HEMOGLOBIN 29.2 pg (27.0-33.0); MEAN CORPUSCULAR HGB CONC 31.7 g/dl (32.0-36.5); MEAN CORPUSCULAR VOLUME 92.4 fl (80.0-96.0); RED CELL DISTRIBUTION WIDTH 14.9 % (11.5-14.5); WHITE BLOOD COUNT 7.3 K/mm3 (4.0-10.0)
[2016-09-17 07:39] LABS: ANION GAP 7 MEQ/L (8-16); BLOOD UREA NITROGEN 13 MG/DL (7-18); CALCIUM LEVEL 8.8 MG/DL (8.8-10.2); CARBON DIOXIDE LEVEL 32 MEQ/L (21-32); CHLORIDE LEVEL 106 MEQ/L (98-107); CREATININE FOR GFR 0.72 MG/DL (0.55-1.02); GLOMERULAR FILTRATION RATE > 60.0 (>39); GLUCOSE, FASTING 107 MG/DL (83-110); SODIUM LEVEL 145 MEQ/L (136-145)
[2016-09-17] MEDS: VITAMIN D 1,000 INTERNATIONAL UNITS TABLET PO SCH (09:09)
[2016-09-17] MEDS: PANTOPRAZOLE 40MG TAB (PROTONIX) PO SCH (09:09)
[2016-09-17] MEDS: ATORVASTATIN 20 MG TAB PO SCH (09:09)
[2016-09-17] MEDS: FLUoxetine 20 MG CAP PO SCH (09:09)
[2016-09-17] MEDS: ATENOLOL 50 MG TAB PO SCH (09:09)
[2016-09-17] MEDS: ASPIRIN 81 MG ENTERIC TAB PO SCH (09:09)
[2016-09-17] MEDS: MULTIVITAMINS/MINERALS THERAP 1 TAB PO SCH (09:09)
[2016-09-17] MEDS: DIGOXIN 0.125 MG TAB PO SCH (09:10)
[2016-09-17] MEDS: DICLOFENAC EPOLAMINE 1.3 % PATCH TOP SCH ×2 (09:10→21:09)
--- NOTE | 2016-09-17 10:36 | IPNPDOC ---
[facility] Progress Note PROGRESS NOTE DATE OF ADMISSION: 09/09/2016 DATE OF SERVICE: 09/17/2016 IDENTIFICATION STATEMENT: Patient is a 71-year-old woman with increased left hemiparesis secondary to right basal ganglia CVA admitted for comprehensive integrated inpatient rehabilitation. PAST MEDICAL HISTORY: Hypertension Dyslipidemia Atrial fibrillation on Xarelto Hypothyroidism CVA 07/02/2016 status post TPA at [facility] PAST SURGICAL HISTORY: Right ankle fracture status post ORIF Bilateral total knee replacements (2006 and 2012) ALLERGIES: Sulfa drugs [note: Patient has reported allergy to aspirin and shellfish in the EMR. I discussed her allergies and she reports an episode 20 years ago of hives that she relates to taking aspirin and eating shellfish simultaneously. He further states that she is able to have aspirin independently without adverse side effects and eat shellfish independently without side effects. She is currently on aspirin without any adverse side effects) MEDICATIONS: Atenolol 50 mg by mouth daily at bedtime Diltiazam 30mg q8h Aspirin 81 mg by mouth daily Protonix 40mg daily Lipitor 40 mg by mouth daily Vitamin D 2000 units by mouth daily Digoxin 0.125 mg by mouth daily Multivitamin 1 tab by mouth daily Xarelto 20 mg by mouth daily Synthroid 0.1 mg by mouth daily Acetaminophen 650 mg every 4 hours when necessary mild pain or fever Flexeril 10mg tid prn Flector patch 1 q12h right shoulder Melatonin 1 tab po qhs Zofran 4 mg PO every 8 hours when necessary for nausea / vomiting SUBJECTIVE: Patient complaints of malaise yesterday, feels a bit better today , but right shoulder arm bother her again. Describes pain on lateral aspect right arm, worse with overhead reaching, better with neutral positioning. Neck flection/extension has no effect. Moderate intensity, achy in nature. Didnt sleep that well 2nd shoulder pain. Also feels anxious at times, concerned she not making fast enough progress. No N/V, FLORES, new weakness, diaphoresis, palpitations, CP or SOB. VITAL SIGNS: 97.9F, pulse 84, respiratory rate of 18, blood pressure 120/71, 93 % saturation on room air PHYSICAL EXAMINATION: GENERAL: Well nourished, well developed, and lying in bed, no acute distress. Flector patch positioned lower later arm. HEENT: Normocephalic, atraumatic. No facial droop. PERRL, EOMI CARDIOVASCULAR: S1, S2, irregular rate. +TEDs b/l, no significant lower limb edema or calf tenderness . LUNGS: Clear to auscultation bilaterally no wheezing, rhonchi or rales ABDOMEN: Soft, nontender, nondistended. Normoactive bowel sounds throughout. MS: + tenderness over right ACJ; + Neers and Stoll right UL NEUROLOGICAL: Alert and oriented x 3. Answers all questions appropriately. MMT: 5/5 strength right upper and lower limb in all major muscle groups. 5/5 strength left upper limb in all major muscle groups. 5/5 left hip flexors, 5/5 left knee extension flexion, 3/5 left dorsiflexion/ plantar flexion, 4/5 EHL. MOOD: Stable (improved over admission). LABORATORY DATA: 09/17/16: reviewed, see below 09/13/16: WBC. 7.0, K 4.0, Cr 0.82 08/31/2016 hemoglobin A1c 6.5 IMAGING: MRI of the brain 08/30/2016: Approximate 2 cm subacute infarct extending from the outer capsule of the right basal ganglia rostrally into the morrell radiata adjacent to the body of the right lateral ventricle. There is a small area of associated petechial hemorrhage lying just lateral to the hot known. Right matter changes consistent with moderate underlying microvascular disease are also present. MRA of the neck without contrast 08/30: Vertebral artery origins are obscured by artifact, the study is otherwise negative. MRA without contrast 08/30/2016: Negative study FUNCTIONAL STATUS, Premorbid: Modified independent with ambulation with rolling walker. Dependent modified independent with ADLs ASSESSMENT AND PLAN: 1. Right basal ganglia infarct with increased left hemiparesis resulting in decreased mobility and dysfunctional ADLs: Aspirin, Xarelto, statin. Patient making progress. Continue TEDS and leg elevation when not in therapy. Continue daily physical and occupational therapy. Rehabilitation nursing for bladder, bowel and medication management 2. Atrial fibrillation: Rate controlled. Continue atenolol, diltiazem, digoxin and Xarelto 3. DVT prophylaxis: Anticoagulated with Xarelto. Continue SCD & TEDs. 4. Bowel: Loose stools resolved. 5. Pain: left hand pain, resolved. Right shoulder pain, DDx includes impingement - continue Flector patch but position over right ACJ, intermittent ice 6. Mood: Stable. Continue Prozac. 7. Insomnia: Melatonin qhs. 8. Diet/nutrition: Prealbumin wnl. Maintain patient current diet. 9 Dry eyes: Resolved with NS eye drops prn 10. Left leg cramp: Episodic, continue Flexeril prn 11. Anxiety: Vistaril prn / Vital Signs Vital Sign - Last 24 Hours 09/16/16 09/16/16 09/16/16 09/16/16 14:00 14:29 20:00 21:38 Temp 97.4 97.3 Pulse 85 85 67 62 Resp 18 18 B/P 134/65 134/65 128/60 118/58 Pulse Ox 96 95 O2 Delivery Room Air Room Air 09/17/16 09/17/16 09/17/16 09/17/16 06:00 06:50 09:09 09:10 Temp 97.9 Pulse 91 91 91 84 Resp 18 B/P 120/71 120/71 120/71 Pulse Ox 93 O2 Delivery Room Air Laboratory Data CBC/BMP Laboratory Tests 09/17/16 06:47 Calcium Level 8.8, Red Blood Count 4.57, Mean Corpuscular Volume 92.4, Mean Corpuscular Hemoglobin 29.2, Mean Corpuscular Hemoglobin Concent 31.7 L, Red Cell Distribution Width 14.9 H Labs 24H Laboratory Tests 2 09/17/16 06:47: Anion Gap 7L, Blood Urea Nitrogen 13, Creatinine 0.72, Sodium Level 145, Potassium Level 4.0, Chloride Level 106, Carbon Dioxide Level 32, Calcium Level 8.8, Glomerular Filtration Rate > 60.0 Allergies Allergies: Coded Allergies: Aspirin (Verified Allergy, Intermediate, HIVES, 10/20/12) Shellfish Allergy (Verified Allergy, Unknown, 10/20/12) Sulfa Drugs (Verified Allergy, Unknown, 10/20/12) Sulfa Drugs Cross Reactors (Verified Allergy, Unknown, 10/20/12) Current Medications Current Medications Current Medications Acetaminophen (Tylenol Tab) 650 mg Q4HP PRN PO MILD PAIN (PS 1-4) Last administered on 09/16/16 08:56; Start 09/07/16 at 14:45; Stop 10/07/16 at 14:44 Artificial Tears (Akwa Tears) 2 drop QIDP PRN OU DRY EYES Last administered on 09/15/16 15:14; Start 09/10/16 at 10:30; Stop 10/10/16 at 10:29 Aspirin (Ecotrin) 81 mg DAILY PO Last administered on 09/17/16 09:09; Start at 09:00; Stop 10/10/16 at 08:59 Atenolol (Tenormin) 50 mg DAILY PO Last administered on 09/17/16 09:09; Start 09/10/16 at 09:00; Stop 10/10/16 at 08:59 Atenolol (Tenormin) 50 mg QHS PO ; Start 09/07/16 at 21:00; Stop 09/09/16 at 11: 53; Status DC Atorvastatin Calcium (Lipitor) 40 mg DAILY PO Last administered on 09/17/16 09: 09; Start 09/10/16 at 09:00; Stop 10/10/16 at 08:59 Cyclobenzaprine HCl (Flexeril) 10 mg Q6HP PRN PO SPASMS Last administered on 23:34; Start 09/10/16 at 11:45; Stop 10/10/16 at 11:44 Diclofenac Epolamine (Flector 1.3%) 1 patch Q12H TOP Last administered on 09:10; Start 09/15/16 at 09:00; Stop 10/15/16 at 08:59 Digoxin (Lanoxin) 0.125 mg DAILY PO Last administered on 09/17/16 09:10; Start 09/10/16 at 09:00; Stop 10/10/16 at 08:59 Diltiazem HCl (Cardizem) 30 mg Q6H PO Last administered on 09/10/16 12:19; Start 09/09/16 at 12:00; Stop 09/10/16 at 14:58; Status DC Diltiazem HCl (Cardizem) 30 mg Q8H PO Last administered on 09/17/16 06:50; Start 09/10/16 at 22:00; Stop 10/10/16 at 21:59 Fluoxetine HCl (PROzac) 20 mg DAILY PO Last administered on 09/17/16 09:09; Start 09/13/16 at 09:00; Stop 10/13/16 at 08:59 Hydroxyzine HCl (Atarax) 25 mg Q6HP PRN PO ANXIETY or nausea; Start 09/17/16 at 09:30; Stop 10/17/16 at 09:29 Levothyroxine Sodium (Synthroid) 0.1 mg DAILY@06 PO Last administered on 06:50; Start 09/10/16 at 06:00; Stop 10/10/16 at 05:59 Miscellaneous (Unresolved Patient Own Med Order) SEE LABEL COMMENTS UNRESOLVED XX ; Start 09/09/16 at 00:01; Stop 09/09/16 at 20:13; Status DC Multivitamins (Theragram-M) 1 tab DAILY PO Last administered on 09/17/16 09:09 ; Start 09/10/16 at 09:00; Stop 10/10/16 at 08:59 Ondansetron HCl (Zofran) 4 mg Q6HP PRN PO NAUSEA Last administered on 09/16/16 19:21; Start 09/07/16 at 14:45; Stop 09/17/16 at 09:23; Status DC Pantoprazole Sodium (Protonix) 40 mg DAILY PO Last administered on 09/17/16 09: 09; Start 09/08/16 at 09:00; Stop 10/08/16 at 08:59 Patient Own Medication (Patient'S Own Med) Melatonin 10mg po qhs QHS PO ; Start 09/09/16 at 21:00; Stop 09/09/16 at 21:00; Status DC Patient Own Medication (Patient'S Own Med) Melatonin 10mg po qhs QHS PO Last administered on 09/16/16 23:34; Start 09/09/16 at 21:00; Stop 10/09/16 at 20:59 Ramelteon (Rozerem) 8 mg QHS PO ; Start 09/08/16 at 21:00; Stop 09/09/16 at 12: 05; Status DC Rivaroxaban (Xarelto) 20 mg DAILY PO Last administered on 09/16/16 08:54; Start 09/10/16 at 09:00; Stop 09/17/16 at 08:59; Status DC Rivaroxaban (Xarelto) 20 mg DAILY PO ; Start 09/17/16 at 09:00; Stop 09/24/16 at 08:59 Vitamin D (Vitamin D) 2,000 units DAILY PO ; Start 09/08/16 at 09:00; Stop 09/09 at 12:43; Status DC Vitamin D (Vitamin D) 2,000 units DAILY PO Last administered on 09/17/16t 09:09 ; Start 09/10/16 at 09:00; Stop 10/10/16 at 08:59 ZOILA GRAHAM MD Sep 17, 2016 10:36
[2016-09-17] MEDS: RIVAROXABAN 20 MG TAB (XARELTO) PO SCH (11:10)
[2016-09-17 14:00] VITALS: BP 120/81
[2016-09-17] MEDS: ACETAMINOPHEN TAB 650MG DOSE (2X325MG) PO PRN (14:15)
[2016-09-17 20:00] VITALS: BP 127/65
[2016-09-17] MEDS: MELATONIN 10MG TABLET (PATIENT'S OWN MED) PO SCH (23:15)
[2016-09-17] MEDS: CYCLOBENZAPRINE 10 MG TAB PO PRN (23:17)
[2016-09-18] MEDS: LEVOTHYROXINE 0.1 MG TAB (100 MCG) PO SCH (05:32)
[2016-09-18 06:00] VITALS: BP 138/83
[2016-09-18] MEDS: DICLOFENAC EPOLAMINE 1.3 % PATCH TOP SCH ×2 (08:37→21:58)
[2016-09-18] MEDS: POLYVINYL ALCOHOL OPHTH SOLN 15 ML(LIQUITEARS) OU PRN (08:39)
[2016-09-18] MEDS: PANTOPRAZOLE 40MG TAB (PROTONIX) PO SCH (08:39)
[2016-09-18] MEDS: ASPIRIN 81 MG ENTERIC TAB PO SCH (08:40)
[2016-09-18] MEDS: ATORVASTATIN 20 MG TAB PO SCH (08:40)
[2016-09-18] MEDS: RIVAROXABAN 20 MG TAB (XARELTO) PO SCH (08:41)
[2016-09-18] MEDS: VITAMIN D 1,000 INTERNATIONAL UNITS TABLET PO SCH (08:41)
[2016-09-18] MEDS: ATENOLOL 50 MG TAB PO SCH (08:45)
[2016-09-18] MEDS: DIGOXIN 0.125 MG TAB PO SCH (08:45)
[2016-09-18] MEDS: FLUoxetine 20 MG CAP PO SCH (08:45)
[2016-09-18] MEDS: MULTIVITAMINS/MINERALS THERAP 1 TAB PO SCH (08:46)
[2016-09-18] MEDS: ACETAMINOPHEN TAB 650MG DOSE (2X325MG) PO PRN (08:46)
[2016-09-18 14:31] VITALS: BP 131/75
[2016-09-18 20:00] VITALS: BP 131/79
[2016-09-18] MEDS: CYCLOBENZAPRINE 10 MG TAB PO PRN (21:58)
[2016-09-18] MEDS: MELATONIN 10MG TABLET (PATIENT'S OWN MED) PO SCH (21:58)
[2016-09-19] MEDS: LEVOTHYROXINE 0.1 MG TAB (100 MCG) PO SCH (05:41)
[2016-09-19 06:00] VITALS: BP 147/81
[2016-09-19] MEDS: ATORVASTATIN 20 MG TAB PO SCH (10:01)
[2016-09-19] MEDS: PANTOPRAZOLE 40MG TAB (PROTONIX) PO SCH (10:02)
[2016-09-19] MEDS: ASPIRIN 81 MG ENTERIC TAB PO SCH (10:02)
[2016-09-19] MEDS: RIVAROXABAN 20 MG TAB (XARELTO) PO SCH (10:03)
[2016-09-19] MEDS: VITAMIN D 1,000 INTERNATIONAL UNITS TABLET PO SCH (10:03)
[2016-09-19] MEDS: MULTIVITAMINS/MINERALS THERAP 1 TAB PO SCH (10:04)
[2016-09-19] MEDS: DIGOXIN 0.125 MG TAB PO SCH (10:04)
[2016-09-19] MEDS: FLUoxetine 20 MG CAP PO SCH (10:05)
[2016-09-19] MEDS: ATENOLOL 50 MG TAB PO SCH (10:05)
[2016-09-19] MEDS: DICLOFENAC EPOLAMINE 1.3 % PATCH TOP SCH ×2 (10:06→20:21)
[2016-09-19] MEDS: hydrOXYzine 25 MG TAB PO PRN (11:13)
[2016-09-19 14:00] VITALS: BP 115/53
[2016-09-19 20:00] VITALS: BP 132/59
[2016-09-19] MEDS: MELATONIN 10MG TABLET (PATIENT'S OWN MED) PO SCH (22:30)
[2016-09-19] MEDS: CYCLOBENZAPRINE 10 MG TAB PO PRN (22:31)
[2016-09-20 06:00] VITALS: BP 138/76
[2016-09-20] MEDS: LEVOTHYROXINE 0.1 MG TAB (100 MCG) PO SCH (07:01)
[2016-09-20] MEDS: DICLOFENAC EPOLAMINE 1.3 % PATCH TOP SCH ×2 (08:34→21:23)
[2016-09-20] MEDS: ATORVASTATIN 20 MG TAB PO SCH (08:34)
[2016-09-20] MEDS: ASPIRIN 81 MG ENTERIC TAB PO SCH (08:35)
[2016-09-20] MEDS: VITAMIN D 1,000 INTERNATIONAL UNITS TABLET PO SCH (08:35)
[2016-09-20] MEDS: ATENOLOL 50 MG TAB PO SCH (08:35)
[2016-09-20] MEDS: RIVAROXABAN 20 MG TAB (XARELTO) PO SCH (08:35)
[2016-09-20] MEDS: DIGOXIN 0.125 MG TAB PO SCH (08:35)
[2016-09-20] MEDS: FLUoxetine 20 MG CAP PO SCH (08:35)
[2016-09-20] MEDS: PANTOPRAZOLE 40MG TAB (PROTONIX) PO SCH (08:35)
[2016-09-20] MEDS: MULTIVITAMINS/MINERALS THERAP 1 TAB PO SCH (08:35)
[2016-09-20] MEDS ORDERED: FLUoxetine 20 MG CAP PO ONE (11:15)
--- NOTE | 2016-09-20 12:02 | IPNPDOC ---
[facility] Progress Note PROGRESS NOTE DATE OF ADMISSION: 09/09/2016 DATE OF SERVICE: 09/20/2016 IDENTIFICATION STATEMENT: Patient is a 71-year-old woman with increased left hemiparesis secondary to right basal ganglia CVA admitted for comprehensive integrated inpatient rehabilitation. PAST MEDICAL HISTORY: Hypertension Dyslipidemia Atrial fibrillation on Xarelto Hypothyroidism CVA 07/02/2016 status post TPA at [facility] PAST SURGICAL HISTORY: Right ankle fracture status post ORIF Bilateral total knee replacements (2006 and 2012) ALLERGIES: Sulfa drugs [note: Patient has reported allergy to aspirin and shellfish in the EMR. I discussed her allergies and she reports an episode 20 years ago of hives that she relates to taking aspirin and eating shellfish simultaneously. He further states that she is able to have aspirin independently without adverse side effects and eat shellfish independently without side effects. She is currently on aspirin without any adverse side effects) MEDICATIONS: Atenolol 50 mg by mouth daily at bedtime Diltiazam 30mg q8h Aspirin 81 mg by mouth daily Protonix 40mg daily Prozac 20mg daily Lipitor 40 mg by mouth daily Vitamin D 2000 units by mouth daily Digoxin 0.125 mg by mouth daily Multivitamin 1 tab by mouth daily Xarelto 20 mg by mouth daily Synthroid 0.1 mg by mouth daily Acetaminophen 650 mg every 4 hours when necessary mild pain or fever Flexeril 10mg tid prn Flector patch 1 q12h right shoulder Melatonin 1 tab po qhs Vistaril 25mg po q8h prn SUBJECTIVE: Patient complaints of left hand stiffness and swelling, otherwise , everything status quo. Slept well. No N/V, FLORES, diaphoresis, palpitations, CP, SOB, C/D, dysuria VITAL SIGNS: 97.6F, pulse 70, respiratory rate of 18, blood pressure 138/76, 92 % saturation on room air PHYSICAL EXAMINATION: GENERAL: Well nourished, well developed, sitting in shoulder bench, no acute distress. Using sock aid. HEENT: Normocephalic, atraumatic. PERRL, EOMI CARDIOVASCULAR: S1, S2, irregular rate, no significant lower limb edema or calf tenderness . LUNGS: Clear to auscultation bilaterally no wheezing, rhonchi or rales ABDOMEN: Soft, nontender, nondistended. Normoactive bowel sounds throughout. MS: mild edema left hand, ROM intact, no end range pain, no allodynia. NEUROLOGICAL: Alert and oriented x 3. Answers all questions appropriately. MMT: 5/5 strength right upper and lower limb in all major muscle groups. 5/5 strength left upper limb in all major muscle groups. 5/5 left hip flexors, 5/5 left knee extension flexion, 3/5 left dorsiflexion/ plantar flexion, 4/5 EHL. MOOD: Labile, tearful at times when discussing her situation LABORATORY DATA: 09/17/16: re-reviewed 09/13/16: WBC. 7.0, K 4.0, Cr 0.82 08/31/2016 hemoglobin A1c 6.5 IMAGING: MRI of the brain 08/30/2016: Approximate 2 cm subacute infarct extending from the outer capsule of the right basal ganglia rostrally into the morrell radiata adjacent to the body of the right lateral ventricle. There is a small area of associated petechial hemorrhage lying just lateral to the hot known. Right matter changes consistent with moderate underlying microvascular disease are also present. MRA of the neck without contrast 08/30: Vertebral artery origins are obscured by artifact, the study is otherwise negative. MRA without contrast 08/30/2016: Negative study FUNCTIONAL STATUS, Premorbid: Modified independent with ambulation with rolling walker. Dependent modified independent with ADLs ASSESSMENT AND PLAN: 1. Right basal ganglia infarct with increased left hemiparesis resulting in decreased mobility and dysfunctional ADLs: Aspirin, Xarelto, statin. Patient making functional progress. Continue TEDS and leg elevation when not in therapy. Continue daily physical and occupational therapy. Rehabilitation nursing for bladder, bowel and medication management 2. Atrial fibrillation: Rate controlled. Continue atenolol, diltiazem, digoxin and Xarelto 3. DVT prophylaxis: Anticoagulated with Xarelto. Continue SCD & TEDs. 4. Bowel: Loose stools resolved. 5. Pain: left hand pain, will prescribe compression glove. Patient instructed in doing left UL exercises when not in therapy. Right shoulder pain no issues today, continue Flector patch over right ACJ, intermittent ice 6. Mood: Dysthymic, labile today. Will increase Prozac. 7. Insomnia: Melatonin qhs. 8. Diet/nutrition: Prealbumin wnl. Maintain patient current diet. 9 Dry eyes: Resolved with NS eye drops prn 10. Left leg cramp: Episodic, continue Flexeril prn 11. Anxiety: Continue Vistaril prn / Vital Signs Vital Sign - Last 24 Hours 09/19/16 09/19/16 09/19/16 09/19/16 14:00 14:25 20:00 22:31 Temp 98.5 97.8 Pulse 88 88 75 75 Resp 18 18 B/P 115/53 115/53 132/59 132/59 Pulse Ox 94 94 O2 Delivery Room Air Room Air 09/20/16 09/20/16 09/20/16 09/20/16 06:00 07:01 08:35 08:35 Temp 97.6 Pulse 92 92 70 92 Resp 18 B/P 138/76 138/76 138/76 Pulse Ox 92 O2 Delivery Room Air Allergies Allergies: Coded Allergies: Aspirin (Verified Allergy, Intermediate, HIVES, 10/20/12) Shellfish Allergy (Verified Allergy, Unknown, 10/20/12) Sulfa Drugs (Verified Allergy, Unknown, 10/20/12) Sulfa Drugs Cross Reactors (Verified Allergy, Unknown, 10/20/12) Current Medications Current Medications Current Medications Acetaminophen (Tylenol Tab) 650 mg Q4HP PRN PO MILD PAIN (PS 1-4) Last administered on 09/18/16 08:46; Start 09/07/16 at 14:45; Stop 10/07/16 at 14:44 Artificial Tears (Akwa Tears) 2 drop QIDP PRN OU DRY EYES Last administered on 09/15/16 15:14; Start 09/10/16 at 10:30; Stop 10/10/16 at 10:29 Aspirin (Ecotrin) 81 mg DAILY PO Last administered on 09/20/16 08:35; Start at 09:00; Stop 10/10/16 at 08:59 Atenolol (Tenormin) 50 mg DAILY PO Last administered on 09/20/16 08:35; Start 09/10/16 at 09:00; Stop 10/10/16 at 08:59 Atenolol (Tenormin) 50 mg QHS PO ; Start 09/07/16 at 21:00; Stop 09/09/16 at 11: 53; Status DC Atorvastatin Calcium (Lipitor) 40 mg DAILY PO Last administered on 09/20/16 08: 34; Start 09/10/16 at 09:00; Stop 10/10/16 at 08:59 Cyclobenzaprine HCl (Flexeril) 10 mg Q6HP PRN PO SPASMS Last administered on 22:31; Start 09/10/16 at 11:45; Stop 10/10/16 at 11:44 Diclofenac Epolamine (Flector 1.3%) 1 patch Q12H TOP Last administered on 08:34; Start 09/15/16 at 09:00; Stop 10/15/16 at 08:59 Digoxin (Lanoxin) 0.125 mg DAILY PO Last administered on 09/20/16 08:35; Start 09/10/16 at 09:00; Stop 10/10/16 at 08:59 Diltiazem HCl (Cardizem) 30 mg Q6H PO Last administered on 09/10/16 12:19; Start 09/09/16 at 12:00; Stop 09/10/16 at 14:58; Status DC Diltiazem HCl (Cardizem) 30 mg Q8H PO Last administered on 09/20/16 07:01; Start 09/10/16 at 22:00; Stop 10/10/16 at 21:59 Fluoxetine HCl (PROzac) 20 mg DAILY PO Last administered on 09/20/16 08:35; Start 09/13/16 at 09:00; Stop 09/20/16 at 11:11; Status DC Fluoxetine HCl (PROzac) 40 mg DAILY PO ; Start 09/21/16 at 09:00; Stop 10/21/16 at 08:59 Hydroxyzine HCl (Atarax) 25 mg Q6HP PRN PO ANXIETY or nausea Last administered on 09/19/16 11:13; Start 09/17/16 at 09:30; Stop 10/17/16 at 09:29 Levothyroxine Sodium (Synthroid) 0.1 mg DAILY@06 PO Last administered on 07:01; Start 09/10/16 at 06:00; Stop 10/10/16 at 05:59 Miscellaneous (Unresolved Patient Own Med Order) SEE LABEL COMMENTS UNRESOLVED XX ; Start 09/09/16 at 00:01; Stop 09/09/16 at 20:13; Status DC Multivitamins (Theragram-M) 1 tab DAILY PO Last administered on 09/20/16 08:35 ; Start 09/10/16 at 09:00; Stop 10/10/16 at 08:59 Ondansetron HCl (Zofran) 4 mg Q6HP PRN PO NAUSEA Last administered on 09/16/16 19:21; Start 09/07/16 at 14:45; Stop 09/17/16 at 09:23; Status DC Pantoprazole Sodium (Protonix) 40 mg DAILY PO Last administered on 09/20/16 08: 35; Start 09/08/16 at 09:00; Stop 10/08/16 at 08:59 Patient Own Medication (Patient'S Own Med) Melatonin 10mg po qhs QHS PO ; Start 09/09/16 at 21:00; Stop 09/09/16 at 21:00; Status DC Patient Own Medication (Patient'S Own Med) Melatonin 10mg po qhs QHS PO Last administered on 09/19/16 22:30; Start 09/09/16 at 21:00; Stop 10/09/16 at 20:59 Ramelteon (Rozerem) 8 mg QHS PO ; Start 09/08/16 at 21:00; Stop 09/09/16 at 12: 05; Status DC Rivaroxaban (Xarelto) 20 mg DAILY PO Last administered on 09/16/16 08:54; Start 09/10/16 at 09:00; Stop 09/17/16 at 08:59; Status DC Rivaroxaban (Xarelto) 20 mg DAILY PO Last administered on 09/20/16 08:35; Start 09/17/16 at 09:00; Stop 09/24/16 at 08:59 Vitamin D (Vitamin D) 2,000 units DAILY PO ; Start 09/08/16 at 09:00; Stop 09/09 at 12:43; Status DC Vitamin D (Vitamin D) 2,000 units DAILY PO Last administered on 09/20/16 08:35 ; Start 09/10/16 at 09:00; Stop 10/10/16 at 08:59 ZOILA GRAHAM MD Sep 20, 2016 12:02
[2016-09-20 14:00] VITALS: BP 128/82
[2016-09-20] MEDS: ACETAMINOPHEN TAB 650MG DOSE (2X325MG) PO PRN (16:03)
[2016-09-20 20:00] VITALS: BP 120/75
[2016-09-20] MEDS: MELATONIN 10MG TABLET (PATIENT'S OWN MED) PO SCH (21:48)
[2016-09-20] MEDS: CYCLOBENZAPRINE 10 MG TAB PO PRN (21:48)
[2016-09-21 06:00] VITALS: BP 138/76
[2016-09-21] MEDS: LEVOTHYROXINE 0.1 MG TAB (100 MCG) PO SCH (06:50)
[2016-09-21 07:19] LABS: MEAN CORPUSCULAR HEMOGLOBIN 30.8 pg (27.0-33.0); MEAN CORPUSCULAR HGB CONC 33.2 g/dl (32.0-36.5); MEAN CORPUSCULAR VOLUME 92.7 fl (80.0-96.0); RED CELL DISTRIBUTION WIDTH 14.9 % (11.5-14.5); WHITE BLOOD COUNT 7.3 K/mm3 (4.0-10.0)
[2016-09-21 07:47] LABS: ANION GAP 7 MEQ/L (8-16); BLOOD UREA NITROGEN 10 MG/DL (7-18); CALCIUM LEVEL 8.8 MG/DL (8.8-10.2); CARBON DIOXIDE LEVEL 30 MEQ/L (21-32); CHLORIDE LEVEL 106 MEQ/L (98-107); CREATININE FOR GFR 0.76 MG/DL (0.55-1.02); GLOMERULAR FILTRATION RATE > 60.0 (>39); GLUCOSE, FASTING 117 MG/DL (83-110); POTASSIUM SERUM 4.2 MEQ/L (3.5-5.1); SODIUM LEVEL 143 MEQ/L (136-145)
[2016-09-21] MEDS: DICLOFENAC EPOLAMINE 1.3 % PATCH TOP SCH ×2 (09:50→21:41)
[2016-09-21] MEDS: MULTIVITAMINS/MINERALS THERAP 1 TAB PO SCH (09:51)
[2016-09-21] MEDS: ASPIRIN 81 MG ENTERIC TAB PO SCH (09:51)
[2016-09-21] MEDS: FLUoxetine 20 MG CAP PO SCH (09:51)
[2016-09-21] MEDS: PANTOPRAZOLE 40MG TAB (PROTONIX) PO SCH (09:51)
[2016-09-21] MEDS: RIVAROXABAN 20 MG TAB (XARELTO) PO SCH (09:51)
[2016-09-21] MEDS: ATORVASTATIN 20 MG TAB PO SCH (09:51)
[2016-09-21] MEDS: VITAMIN D 1,000 INTERNATIONAL UNITS TABLET PO SCH (09:51)
[2016-09-21] MEDS: hydrOXYzine 25 MG TAB PO PRN ×2 (09:52→16:19)
[2016-09-21] MEDS: ATENOLOL 50 MG TAB PO SCH (09:52)
[2016-09-21] MEDS: DIGOXIN 0.125 MG TAB PO SCH (09:52)
--- NOTE | 2016-09-21 10:48 | IPNPDOC ---
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 PAST MEDICAL HISTORY: Hypertension Dyslipidemia Atrial fibrillation on Xarelto Hypothyroidism CVA 07/02/2016 status post TPA at [facility] PAST SURGICAL HISTORY: Right ankle fracture status post ORIF Bilateral total knee replacements (2006 and 2012) ALLERGIES: Sulfa drugs [note: Patient has reported allergy to aspirin and shellfish in the EMR. I discussed her allergies and she reports an episode 20 years ago of hives that she relates to taking aspirin and eating shellfish simultaneously. He further states that she is able to have aspirin independently without adverse side effects and eat shellfish independently without side effects. She is currently on aspirin without any adverse side effects) MEDICATIONS: Atenolol 50 mg by mouth daily at bedtime Diltiazam 30mg q8h Aspirin 81 mg by mouth daily Protonix 40mg daily Lipitor 40 mg by mouth daily Vitamin D 2000 units by mouth daily Digoxin 0.125 mg by mouth daily Multivitamin 1 tab by mouth daily Xarelto 20 mg by mouth daily Synthroid 0.1 mg by mouth daily Prozac 40mg daily Acetaminophen 650 mg every 4 hours when necessary mild pain or fever Flexeril 10mg tid prn Flector patch 1 q12h right shoulder Melatonin 1 tab po qhs Vistaril 25mg po q8h prn SUBJECTIVE: Patient complaints that she feels as if her left UL is weaker than usual. Stiffness and edema has resolved. She denies any increased left LL weakness. Slept ok. She is very worried about going home, concerned she wont be able to manage. She states she thinks the medicine helps her anxiety. No N/V , FLORES, diaphoresis, palpitations, CP, SOB, C/D, dysuria VITAL SIGNS: 97.3F, pulse 79, respiratory rate of 18, blood pressure 138/76, 93 % saturation on room air PHYSICAL EXAMINATION: GENERAL: Well nourished, well developed, sitting in chair, no acute distress. HEENT: Normocephalic, atraumatic. PERRL, EOMI CARDIOVASCULAR: S1, S2, irregular rate, no significant lower limb edema or calf tenderness . LUNGS: Clear to auscultation bilaterally no wheezing, rhonchi or rales ABDOMEN: Soft, nontender, nondistended. Normoactive bowel sounds throughout. MS: no significant edema left hand, ROM intact, no end range pain, no allodynia. NEUROLOGICAL: Alert and oriented x 3. Answers all questions appropriately. MMT: 5/5 strength right upper and lower limb in all major muscle groups. 5/5 strength left shoulder abduction, elbow flexion and indigo vat tender cloth. 5/5 left hip flexors, 4/5 left knee extension, 5/5 flexion, 3/5 left dorsiflexion/ plantar flexion, 4/ 5 EHL. MOOD: Labile, tearful at times when describing her situation LABORATORY DATA: 09/21/16: reviewed 09/13/16: WBC. 7.0, K 4.0, Cr 0.82 08/31/2016 hemoglobin A1c 6.5 IMAGING: MRI of the brain 08/30/2016: Approximate 2 cm subacute infarct extending from the outer capsule of the right basal ganglia rostrally into the morrell radiata adjacent to the body of the right lateral ventricle. There is a small area of associated petechial hemorrhage lying just lateral to the hot known. Right matter changes consistent with moderate underlying microvascular disease are also present. MRA of the neck without contrast 08/30: Vertebral artery origins are obscured by artifact, the study is otherwise negative. MRA without contrast 08/30/2016: Negative study FUNCTIONAL STATUS, Premorbid: Modified independent with ambulation with rolling walker. Dependent modified independent with ADLs ASSESSMENT AND PLAN: 1. Right basal ganglia infarct with increased left hemiparesis resulting in decreased mobility and dysfunctional ADLs: Aspirin, Xarelto, statin. Patient has been making functional progress. She reporting increased left UL weakness. On exam today, left UL motor strength seems intact but there may be some increased left LL, although this may be effort related. Given her high risk, will obtain CT head. Continue daily physical and occupational therapy. Rehabilitation nursing for bladder, bowel and medication management 2. Atrial fibrillation: Rate controlled. Continue atenolol, diltiazem, digoxin and Xarelto 3. DVT prophylaxis: Anticoagulated with Xarelto. Continue SCD & TEDs. 4. Bowel: Loose stools resolved. 5. Pain: left hand pain: resolved s/p compression glove and elevation. Right shoulder pain no complaints today, continue Flector patch, intermittent ice 6. Mood: Dysthymic/anxiety: labile again today. S/p increase Prozac yesterday. Continue Vistaril prn. 7. Insomnia: Melatonin qhs. 8. Diet/nutrition: Prealbumin wnl. Maintain patient current diet. 9 Dry eyes: Resolved with NS eye drops prn 10. Left leg cramp: Episodic, continue Flexeril prn / Vital Signs Vital Sign - Last 24 Hours 09/20/16 09/20/16 09/20/16 09/20/16 13:50 14:00 20:00 21:23 Temp 97.2 98.2 Pulse 72 72 75 75 Resp 18 18 B/P 128/82 128/82 120/75 120/75 Pulse Ox 93 93 O2 Delivery Room Air Room Air 09/21/16 09/21/16 09/21/16 09/21/16 06:00 06:50 09:52 09:52 Temp 98.1 Pulse 81 81 89 89 Resp 18 B/P 138/76 138/76 138/76 Pulse Ox 93 O2 Delivery Room Air Laboratory Data CBC/BMP Laboratory Tests 09/21/16 06:55 Calcium Level 8.8, Red Blood Count 4.46, Mean Corpuscular Volume 92.7, Mean Corpuscular Hemoglobin 30.8, Mean Corpuscular Hemoglobin Concent 33.2, Red Cell Distribution Width 14.9 H Labs 24H Laboratory Tests 2 09/21/16 06:55: Anion Gap 7L, Blood Urea Nitrogen 10, Creatinine 0.76, Sodium Level 143, Potassium Level 4.2, Chloride Level 106, Carbon Dioxide Level 30, Calcium Level 8.8, Glomerular Filtration Rate > 60.0 Allergies Allergies: Coded Allergies: Aspirin (Verified Allergy, Intermediate, HIVES, 10/20/12) Shellfish Allergy (Verified Allergy, Unknown, 10/20/12) Sulfa Drugs (Verified Allergy, Unknown, 10/20/12) Sulfa Drugs Cross Reactors (Verified Allergy, Unknown, 10/20/12) Current Medications Current Medications Current Medications Acetaminophen (Tylenol Tab) 650 mg Q4HP PRN PO MILD PAIN (PS 1-4) Last administered on 09/20/16t 16:03; Start 09/07/16 at 14:45; Stop 10/07/16 at 14:44 Artificial Tears (Akwa Tears) 2 drop QIDP PRN OU DRY EYES Last administered on 09/15/16 15:14; Start 09/10/16 at 10:30; Stop 10/10/16 at 10:29 Aspirin (Ecotrin) 81 mg DAILY PO Last administered on 09/21/16 09:51; Start at 09:00; Stop 10/10/16 at 08:59 Atenolol (Tenormin) 50 mg DAILY PO Last administered on 09/21/16 09:52; Start 09/10/16 at 09:00; Stop 10/10/16 at 08:59 Atenolol (Tenormin) 50 mg QHS PO ; Start 09/07/16 at 21:00; Stop 09/09/16 at 11: 53; Status DC Atorvastatin Calcium (Lipitor) 40 mg DAILY PO Last administered on 09/21/16 09: 51; Start 09/10/16 at 09:00; Stop 10/10/16 at 08:59 Cyclobenzaprine HCl (Flexeril) 10 mg Q6HP PRN PO SPASMS Last administered on 21:48; Start 09/10/16 at 11:45; Stop 10/10/16 at 11:44 Diclofenac Epolamine (Flector 1.3%) 1 patch Q12H TOP Last administered on 09:50; Start 09/15/16 at 09:00; Stop 10/15/16 at 08:59 Digoxin (Lanoxin) 0.125 mg DAILY PO Last administered on 09/21/16 09:52; Start 09/10/16 at 09:00; Stop 10/10/16 at 08:59 Diltiazem HCl (Cardizem) 30 mg Q6H PO Last administered on 09/10/16 12:19; Start 09/09/16 at 12:00; Stop 09/10/16 at 14:58; Status DC Diltiazem HCl (Cardizem) 30 mg Q8H PO Last administered on 09/21/16 06:50; Start 09/10/16 at 22:00; Stop 10/10/16 at 21:59 Fluoxetine HCl (PROzac) 20 mg DAILY PO Last administered on 09/20/16 08:35; Start 09/13/16 at 09:00; Stop 09/20/16 at 11:11; Status DC Fluoxetine HCl (PROzac) 40 mg DAILY PO Last administered on 09/21/16 09:51; Start 09/21/16 at 09:00; Stop 10/21/16 at 08:59 Hydroxyzine HCl (Atarax) 25 mg Q6HP PRN PO ANXIETY or nausea Last administered on 09/21/16 09:52; Start 09/17/16 at 09:30; Stop 10/17/16 at 09:29 Levothyroxine Sodium (Synthroid) 0.1 mg DAILY@06 PO Last administered on 06:50; Start 09/10/16 at 06:00; Stop 10/10/16 at 05:59 Miscellaneous (Unresolved Patient Own Med Order) SEE LABEL COMMENTS UNRESOLVED XX ; Start 09/09/16 at 00:01; Stop 09/09/16 at 20:13; Status DC Multivitamins (Theragram-M) 1 tab DAILY PO Last administered on 09/21/16 09:51 ; Start 09/10/16 at 09:00; Stop 10/10/16 at 08:59 Ondansetron HCl (Zofran) 4 mg Q6HP PRN PO NAUSEA Last administered on 09/16/16 19:21; Start 09/07/16 at 14:45; Stop 09/17/16 at 09:23; Status DC Pantoprazole Sodium (Protonix) 40 mg DAILY PO Last administered on 09/21/16 09: 51; Start 09/08/16 at 09:00; Stop 10/08/16 at 08:59 Patient Own Medication (Patient'S Own Med) Melatonin 10mg po qhs QHS PO ; Start 09/09/16 at 21:00; Stop 09/09/16 at 21:00; Status DC Patient Own Medication (Patient'S Own Med) Melatonin 10mg po qhs QHS PO Last administered on 09/20/16 21:48; Start 09/09/16 at 21:00; Stop 10/09/16 at 20:59 Ramelteon (Rozerem) 8 mg QHS PO ; Start 09/08/16 at 21:00; Stop 09/09/16 at 12: 05; Status DC Rivaroxaban (Xarelto) 20 mg DAILY PO Last administered on 09/16/16 08:54; Start 09/10/16 at 09:00; Stop 09/17/16 at 08:59; Status DC Rivaroxaban (Xarelto) 20 mg DAILY PO Last administered on 09/21/16 09:51; Start 09/17/16 at 09:00; Stop 09/24/16 at 08:59 Vitamin D (Vitamin D) 2,000 units DAILY PO ; Start 09/08/16 at 09:00; Stop 09/09 at 12:43; Status DC Vitamin D (Vitamin D) 2,000 units DAILY PO Last administered on 09/21/16 09:51 ; Start 09/10/16 at 09:00; Stop 10/10/16 at 08:59 ZOILA GRAHAM MD Sep 21, 2016 10:48
--- NOTE | 2016-09-21 12:02 | REP ---
CT HEAD WITHOUT CONTRAST: HISTORY: Infarction. An area of decreased attenuation is present in the right basal ganglia and centrum semiovale. This represents an old lacunar infarction. Areas of decreased attenuation are present in the periventricular white matter. This represents small vessel ischemic disease. There is no intraparenchymal hemorrhage, mass, or midline shift. The ventricular system and cortical sulci are dilated consistent with minimal volume loss. There is no extracerebral collection. Mucosal thickening is present in the left sphenoid sinus. IMPRESSION: 1. Old right basal ganglia and centrum semiovale lacunar infarction. 2. Small vessel ischemic disease. 3. Minimal volume loss. Signed by Humberto Whatley MD 09/21/2016 12:07 P
[2016-09-21 14:00] VITALS: BP 138/82
[2016-09-21 20:00] VITALS: BP 116/65
--- NOTE | 2016-09-21 20:30 | REPUSA ---
MRI of the brain clinical history: increasing weakness. Comparison: 08/30/2016. Technique: Multiecho multiplanar MRI images of the brain were obtained without administration of cont rast. Diffusion weighted images with ADC mapping was also obtained. Findings: The ventricles and sulci are symmetric bilaterally. The foci of restricted diffusion in the right bas al ganglia is unchanged since the prior MRI. No new acute infarct is identified. Periventricular and subcortical white matter changes are stable. The brain parenchyma otherwise demonstrates uniform and normal signal on all sequences. There is no midline shift, mass effect, or extra-axial fluid collecti on. The midline intracranial structures do not demonstrate any gross abnormalities. The cervical cran ial junction is intact. The orbits are unremarkable. The visualized paranasal sinuses and mastoid air cells are clear. The osseous structures and superficial soft tissues are unremarkable. The vascular structures demonstrate appropriate flow voids. Impression: 1. No new evidence of acute infarct or hemorrhage. 2. The previously demonstrated subacute infarct in the right basal ganglia is grossly stable when com pared to the prior study. 3. Moderate chronic small vessel ischemic changes are stable.
[2016-09-21] MEDS: CYCLOBENZAPRINE 10 MG TAB PO PRN (22:20)
[2016-09-21] MEDS: MELATONIN 10MG TABLET (PATIENT'S OWN MED) PO SCH (22:21)
[2016-09-22 06:00] VITALS: BP 123/81
[2016-09-22] MEDS: LEVOTHYROXINE 0.1 MG TAB (100 MCG) PO SCH (06:25)
[2016-09-22] MEDS ORDERED: CYCL10TA PO (08:28)
[2016-09-22] MEDS ORDERED: XARE20TA PO (08:28)
[2016-09-22] MEDS ORDERED: PANT40TA2 PO (08:28)
[2016-09-22] MEDS ORDERED: DILT30TA PO ×2 (08:28→09:36)
[2016-09-22] MEDS ORDERED: ATOR40TA PO (08:28)
[2016-09-22] MEDS ORDERED: HYDR25T PO (08:28)
[2016-09-22] MEDS ORDERED: ATEN50TA2 PO (08:28)
[2016-09-22] MEDS ORDERED: FLUO20CA9 PO (08:28)
[2016-09-22] MEDS ORDERED: DIGO0.12 PO (08:28)
[2016-09-22] MEDS ORDERED: MAPA325T2 PO (08:28)
[2016-09-22] MEDS ORDERED: SYNT100T PO (08:28)
[2016-09-22] MEDS: DICLOFENAC EPOLAMINE 1.3 % PATCH TOP SCH (08:43)
[2016-09-22] MEDS: RIVAROXABAN 20 MG TAB (XARELTO) PO SCH (08:44)
[2016-09-22] MEDS: FLUoxetine 20 MG CAP PO SCH (08:44)
[2016-09-22] MEDS: VITAMIN D 1,000 INTERNATIONAL UNITS TABLET PO SCH (08:45)
[2016-09-22] MEDS: MULTIVITAMINS/MINERALS THERAP 1 TAB PO SCH (08:45)
[2016-09-22] MEDS: ATORVASTATIN 20 MG TAB PO SCH (08:45)
[2016-09-22] MEDS: ASPIRIN 81 MG ENTERIC TAB PO SCH (08:46)
[2016-09-22] MEDS: PANTOPRAZOLE 40MG TAB (PROTONIX) PO SCH (08:46)
[2016-09-22 08:50] VITALS: BP 104/80
[2016-09-22] MEDS: DIGOXIN 0.125 MG TAB PO SCH (08:50)
[2016-09-22] MEDS: ATENOLOL 50 MG TAB PO SCH (08:50)
--- NOTE | 2016-09-22 10:00 | DS.PDOC ---
Speech Pathology Assistant Discharge Note DISCHARGE SUMMARY DATE OF ADMISSION: 09/09/2016 DATE OF DISCHARGE: 09/22/2016 DISCHARGE DIAGNOSES 1. Right basal ganglia infarct with left hemiparesis 2. Atrial fibrillation 3. Dysthymia/anxiety 4. Insomnia. IDENTIFICATION STATEMENT: Patient is a 71-year-old woman with increased left hemiparesis secondary to right basal ganglia CVA admitted for comprehensive integrated inpatient rehabilitation. PAST MEDICAL HISTORY: Hypertension Dyslipidemia Atrial fibrillation on Xarelto Hypothyroidism CVA 07/02/2016 status post TPA at [facility] PAST SURGICAL HISTORY: Right ankle fracture status post ORIF Bilateral total knee replacements (2006 and 2012) HOSPITAL COURSE The patient underwent daily physical and occupational therapy. She tolerated her therapy sessions well and made progressive gains. She met her functional goals and on 09/22/16 she was deemed stable discharge home with HHS. Other issues addressed while on the rehabilitation unit are outlined as follows: 1. Right basal ganglia infarct with left hemiparesis: Maintained on Aspirin, Xarelto, statin. Repeat imaging (CT head, MRI brain) was done due to reported increased left UL weakness. No new findings. Results reviewed with patient. 2. Dysthymia/anxiety: Patients mood was labile throughout her admission with periods of tearfulness when discussing her situation. She also reported periodic anxiety. She was first started on Prozac which was titrated up during her admission. Prozac was chosen as supports its use in post ischemic stroke to facilitate motor recovery. She had no adverse side effects from the Prozac. Due to her persistent episodic anxiety, Vistaril was added which she reported was helpful. 3. Atrial fibrillation: Remained rate controlled. Continued atenolol, digoxin and Xarelto. 4. Hypertension: Continued on atenolol and diltiazam. Diltiazam was decreased from q8h to bid prior to discharge due to relative hypotension. 5. DVT prophylaxis: Anticoagulated with Xarelto. Continued SCD & TEDs. 6. Bowel: Loose stools resolved. 7. Pain: left hand pain: resolved s/p compression glove and elevation. Right shoulder pain, chronic- improved with course Flector patch and intermittent ice 8. Insomnia: Resolved with Melatonin qhs. 8. Dry eyes: Resolved with NS eye drops prn 9. Left leg cramp: Episodic, well treated with Flexeril prn VITAL SIGNS: 96.8F, pulse 84, respiratory rate of 17, blood pressure 104/80, 93 % saturation on room air PHYSICAL EXAMINATION: GENERAL: Well nourished, well developed, sitting in chair, no acute distress. HEENT: Normocephalic, atraumatic. PERRL, EOMI CARDIOVASCULAR: S1, S2, irregular rate, no significant lower limb edema or calf tenderness . LUNGS: Clear to auscultation bilaterally no wheezing, rhonchi or rales ABDOMEN: Soft, nontender, nondistended. Normoactive bowel sounds throughout. MS: no significant edema left hand, ROM intact, no end range pain, no allodynia. NEUROLOGICAL: Alert and oriented x 3. Answers all questions appropriately. MMT: 5/5 strength right upper and lower limb in all major muscle groups. 5/5 strength left shoulder abduction (use of accessory muscles), 5/5 shoulder forward flexion; 5/5 elbow flexion, 4/5 elbow extension; 5/5 cork painter and grader. 5/5 left hip flexors, 4+/5 left knee extension, 5/5 knee flexion, 3/5 left dorsiflexion/ plantar flexion, 4/5 EHL. MOOD: Improved over yesterday, dysthymic, but not tearful today LABORATORY DATA: 09/21/16: reviewed, see below 08/31/2016 hemoglobin A1c 6.5 IMAGING: CT head 09/21/16: no acute findings MRI brain 09/21/16: Subacute right basal ganglia CVA, no acute findings. MRI of the brain 08/30/2016: Approximate 2 cm subacute infarct extending from the outer capsule of the right basal ganglia rostrally into the morrell radiata adjacent to the body of the right lateral ventricle. There is a small area of associated petechial hemorrhage lying just lateral to the hot known. Right matter changes consistent with moderate underlying microvascular disease are also present. MRA of the neck without contrast 08/30: Vertebral artery origins are obscured by artifact, the study is otherwise negative. MRA without contrast 08/30/2016: Negative study ALLERGIES: Sulfa drugs [note: Patient has reported allergy to aspirin and shellfish in the EMR. I discussed her allergies and she reports an episode 20 years ago of hives that she relates to taking aspirin and eating shellfish simultaneously. She further stated that she is able to have aspirin independently without adverse side effects and eat shellfish independently without side effects. She is currently on aspirin without any adverse side effects) MEDICATIONS: Atenolol 50 mg by mouth daily at bedtime Digoxin 0.125 mg by mouth daily Diltiazem 30mg PO BID Aspirin 81 mg by mouth daily Xarelto 20 mg by mouth daily Synthroid 0.1 mg by mouth daily Protonix 40mg daily Lipitor 40 mg by mouth daily Prozac 40mg daily Vitamin D 2000 units by mouth daily Multivitamin 1 tab by mouth daily Acetaminophen 650 mg every 4 hours when necessary mild pain or fever Flexeril 10mg tid prn Melatonin 1 tab po qhs Vistaril 25mg po q8h prn DISCHARGE DISPOSITION: 1. The patient discharge home with family and HHS 2. The patient discharged in stable condition 3. Discharged with HHS to include RN, PT, OT and bath aide. 4. Post discharge follow-up medical appointments: PCP, Neuro. / Vital Signs/I&O Vital Sign - Last 24 Hours 09/21/16 09/21/16 09/21/16 09/21/16 14:00 14:40 20:00 21:41 Temp 97.7 98.5 Pulse 87 84 84 Resp 18 18 B/P 138/82 138/82 116/65 116/65 Pulse Ox 93 94 O2 Delivery Room Air Room Air 09/22/16 09/22/16 09/22/16 09/22/16 06:00 06:26 08:50 08:50 Temp 96.8 Pulse 81 81 84 84 Resp 17 B/P 123/81 123/81 104/80 Pulse Ox 93 O2 Delivery Room Air I&O- Last 24 Hours up to 6 AM 09/22/16 06:00 Intake Total 640 ml Balance 640 ml Laboratory Data CBC/BMP Laboratory Tests 09/21/16 06:55 Calcium Level 8.8, Red Blood Count 4.46, Mean Corpuscular Volume 92.7, Mean Corpuscular Hemoglobin 30.8, Mean Corpuscular Hemoglobin Concent 33.2, Red Cell Distribution Width 14.9 H Labs 48H Laboratory Tests 09/21/16 06:55: Anion Gap 7L, Blood Urea Nitrogen 10, Creatinine 0.76, Sodium Level 143, Potassium Level 4.2, Chloride Level 106, Carbon Dioxide Level 30, Calcium Level 8.8, Fasting Glucose 117H, Glomerular Filtration Rate > 60.0, White Blood Count 7.3, Red Blood Count 4.46, Hemoglobin 13.7, Hematocrit 41.4, Mean Corpuscular Volume 92.7, Mean Corpuscular Hemoglobin 30.8, Mean Corpuscular Hemoglobin Concent 33.2, Red Cell Distribution Width 14.9H, Platelet Count 244 Medications Medications Current Medications Acetaminophen (Tylenol Tab) 650 mg Q4HP PRN PO MILD PAIN (PS 1-4) Last administered on 09/20/16 16:03; Start 09/07/16 at 14:45; Stop 10/07/16 at 14:44 Artificial Tears (Akwa Tears) 2 drop QIDP PRN OU DRY EYES Last administered on 09/15/16 15:14; Start 09/10/16 at 10:30; Stop 10/10/16 at 10:29 Aspirin (Ecotrin) 81 mg DAILY PO Last administered on 09/22/16 08:46; Start at 09:00; Stop 10/10/16 at 08:59 Atenolol (Tenormin) 50 mg DAILY PO Last administered on 09/22/16 08:50; Start 09/10/16 at 09:00; Stop 10/10/16 at 08:59 Atenolol (Tenormin) 50 mg QHS PO ; Start 09/07/16 at 21:00; Stop 09/09/16 at 11: 53; Status DC Atorvastatin Calcium (Lipitor) 40 mg DAILY PO Last administered on 09/22/16 08: 45; Start 09/10/16 at 09:00; Stop 10/10/16 at 08:59 Cyclobenzaprine HCl (Flexeril) 10 mg Q6HP PRN PO SPASMS Last administered on 22:20; Start 09/10/16 at 11:45; Stop 10/10/16 at 11:44 Diclofenac Epolamine (Flector 1.3%) 1 patch Q12H TOP Last administered on 08:43; Start 09/15/16 at 09:00; Stop 10/15/16 at 08:59 Digoxin (Lanoxin) 0.125 mg DAILY PO Last administered on 09/22/16 08:50; Start 09/10/16 at 09:00; Stop 10/10/16 at 08:59 Diltiazem HCl (Cardizem) 30 mg Q6H PO Last administered on 09/10/16 12:19; Start 09/09/16 at 12:00; Stop 09/10/16 at 14:58; Status DC Diltiazem HCl (Cardizem) 30 mg Q8H PO Last administered on 09/22/16 06:26; Start 09/10/16 at 22:00; Stop 10/10/16 at 21:59 Fluoxetine HCl (PROzac) 20 mg DAILY PO Last administered on 09/20/16 08:35; Start 09/13/16 at 09:00; Stop 09/20/16 at 11:11; Status DC Fluoxetine HCl (PROzac) 40 mg DAILY PO Last administered on 09/22/16 08:44; Start 09/21/16 at 09:00; Stop 10/21/16 at 08:59 Hydroxyzine HCl (Atarax) 25 mg Q6HP PRN PO ANXIETY or nausea Last administered on 09/21/16 16:19; Start 09/17/16 at 09:30; Stop 10/17/16 at 09:29 Levothyroxine Sodium (Synthroid) 0.1 mg DAILY@06 PO Last administered on 06:25; Start 09/10/16 at 06:00; Stop 10/10/16 at 05:59 Miscellaneous (Unresolved Patient Own Med Order) SEE LABEL COMMENTS UNRESOLVED XX ; Start 09/09/16 at 00:01; Stop 09/09/16 at 20:13; Status DC Multivitamins (Theragram-M) 1 tab DAILY PO Last administered on 09/22/16 08:45 ; Start 09/10/16 at 09:00; Stop 10/10/16 at 08:59 Ondansetron HCl (Zofran) 4 mg Q6HP PRN PO NAUSEA Last administered on 09/16/16 19:21; Start 09/07/16 at 14:45; Stop 09/17/16 at 09:23; Status DC Pantoprazole Sodium (Protonix) 40 mg DAILY PO Last administered on 09/22/16 08: 46; Start 09/08/16 at 09:00; Stop 10/08/16 at 08:59 Patient Own Medication (Patient'S Own Med) Melatonin 10mg po qhs QHS PO ; Start 09/09/16 at 21:00; Stop 09/09/16 at 21:00; Status DC Patient Own Medication (Patient'S Own Med) Melatonin 10mg po qhs QHS PO Last administered on 09/21/16 22:21; Start 09/09/16 at 21:00; Stop 10/09/16 at 20:59 Ramelteon (Rozerem) 8 mg QHS PO ; Start 09/08/16 at 21:00; Stop 09/09/16 at 12: 05; Status DC Rivaroxaban (Xarelto) 20 mg DAILY PO Last administered on 09/16/16 08:54; Start 09/10/16 at 09:00; Stop 09/17/16 at 08:59; Status DC Rivaroxaban (Xarelto) 20 mg DAILY PO Last administered on 09/22/16 08:44; Start 09/17/16 at 09:00; Stop 09/24/16 at 08:59 Vitamin D (Vitamin D) 2,000 units DAILY PO ; Start 09/08/16 at 09:00; Stop 09/09 at 12:43; Status DC Vitamin D (Vitamin D) 2,000 units DAILY PO Last administered on 09/22/16 08:45 ; Start 09/10/16 at 09:00; Stop 10/10/16 at 08:59 Scheduled (Calcium 500+D 500-200 mg-Unit) 1 Tab Tab 1 TAB PO QHS (Reported) (Glucosamine Chondroitin) 1 Tab Tab 1 TAB PO BID (Reported) (Restasis) 0.05 % Emu 1 DROP OU BID (Reported) (B Complex) 1 Tab Tab 1 TAB PO DAILY (Reported) Aspirin (Aspirin EC) 81 Mg Tabec 81 MG PO DAILY Atenolol (Atenolol) 50 Mg Tab 50 MG PO DAILY Atorvastatin Calcium (Atorvastatin Calcium) 40 Mg Tab 40 MG PO DAILY Cholecalciferol (Vitamin D) 1,000 Unit Tab 2,000 UNIT PO DAILY (Reported) Digoxin (Digoxin) 0.125 Mg Tab 0.125 MG PO DAILY Diltiazem HCl (Diltiazem HCl) 30 Mg Tab 30 MG PO BID Fluoxetine Hcl (Fluoxetine HCl) 20 Mg Cap 40 MG PO DAILY Hydroxypropyl Methylcellulose (Systane Overnight Therapy) 0.3 % Gel 1 DROP OU QHS (Reported) Levothyroxine Sodium (Synthroid) 100 Mcg Tab 100 MCG PO DAILY Loteprednol Etabonate (Lotemax) 0.5 % Mita 1 DROP OU TID (Reported) Melatonin (Melatonin) 10 Mg Tab 10 MG PO QHS (Reported) Multivitamins *[facility]* (Thera M Plus [facility]*) 1 Tab Tab 1 TAB PO DAILY (Reported) Pantoprazole Sodium (Pantoprazole Sodium) 40 Mg Tab 40 MG PO DAILY Rivaroxaban (Xarelto) 20 Mg Tab 20 MG PO DAILY Scheduled PRN Acetaminophen (Mapap) 325 Mg Tab 650 MG PO Q4HP PRN PRN MILD PAIN (PS 1-4) Carboxymethylcellulose Sodium (Refresh Tears) 0.5 % Ervin 1 DROP OU TID PRN PRN DRY EYES (Reported) Cyclobenzaprine HCl (Cyclobenzaprine HCl) 10 Mg Tab 10 MG PO Q6HP PRN PRN SPASMS Hydroxyzine HCl (Hydroxyzine HCl) 25 Mg Tab 25 MG PO Q6HP PRN PRN ANXIETY or nausea Allergies Coded Allergies: Aspirin (Verified Allergy, Intermediate, HIVES, 10/20/12) Shellfish Allergy (Verified Allergy, Unknown, 10/20/12) Sulfa Drugs (Verified Allergy, Unknown, 10/20/12) Sulfa Drugs Cross Reactors (Verified Allergy, Unknown, 10/20/12) ZOILA GRAHAM MD Sep 22, 2016 10:00
== END 2016-09-22 12:55 | disposition home health service (06) | DRG 57 ==
LOC: M PM&R 09-09 11:20
PROVIDERS: ADMIT Physical Medicine & Rehabilitation; ATTEND Physical Medicine & Rehabilitation
DX: I69.354 Hemiplegia and hemiparesis following cerebral infarction affecting left non-dominant side (principal); I69.398 Other sequelae of cerebral infarction; F41.9 Anxiety disorder, unspecified; I48.91 Unspecified atrial fibrillation; E78.5 Hyperlipidemia, unspecified; M25.542 Pain in joints of left hand; M25.511 Pain in right shoulder; R25.2 Cramp and spasm; I10 Essential (primary) hypertension; G47.00 Insomnia, unspecified; R19.7 Diarrhea, unspecified; E03.9 Hypothyroidism, unspecified; Z79.01 Long term (current) use of anticoagulants; Z96.653 Presence of artificial knee joint, bilateral; Z88.2 Allergy status to sulfonamides; Z79.82 Long term (current) use of aspirin; Z79.899 Other long term (current) drug therapy; Z91.013 Allergy to seafood

== ENCOUNTER 2016-10-12 17:21 | Inpatient (IN) | payer MEDICARE, BC, OTHER ==
[~2016-10-12] VITALS: Ht 160 cm; Wt 98.3 kg
[~2016-10-12 17:21] MED LIST changes: +ASPI81TAEC PO; +ATEN50TA2 PO; +CYCL10TA PO; +DILT30TA PO; +FLUO20CA9 PO; +HYDR25T PO; +MAPA325T2 PO; +PANT40TA2 PO
--- NOTE | 2016-10-12 17:58 | REP ---
Clinical: Cerebrovascular accident. Comparison: 09/21/2016 . Findings: Age-related atrophy and microvascular ischemic changes are appreciated. Stable old right basal ganglia infarct with encephalomalacia. The ventricles and sulci are symmetric. Mas-white differentiation is maintained. There is no evidence for acute intracranial hemorrhage, mass/mass effect, pathology or infarction. No extra-axial fluid collection. Calvarium is intact. Paranasal sinuses and mastoid air cells are clear. Impression: Age related atrophy and microvascular ischemic changes. Encephalomalacia related to old right basal ganglia infarct. No acute intracranial hemorrhage, infarction, or mass/mass effect. Signed by Yaya Ortiz MD 10/12/2016 05:50 P
--- NOTE | 2016-10-12 18:09 | REP ---
Clinical: Cerebrovascular accident . Comparison: 08/30/2016 . Findings: The mediastinum and cardiac silhouette are stable and within normal limits for portable technique. The lung hodges are clear without acute consolidation, effusion, or pneumothorax. Skeletal structures are intact. Impression: Normal portable chest x-ray Signed by Yaya Ortiz MD 10/12/2016 06:01 P
--- NOTE | 2016-10-12 18:25 | ECGEPIP ---
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
[2016-10-12] MEDS ORDERED: PANT40TA2 PO (19:22)
[2016-10-12] MEDS ORDERED: DIGO0.12 PO (19:22)
[2016-10-12] MEDS ORDERED: MELA5TAB14 PO (19:22)
[2016-10-12] MEDS ORDERED: XARE20TA PO (19:22)
[2016-10-12] MEDS ORDERED: VITMTA PO (19:22)
[2016-10-12] MEDS ORDERED: SYST0.4D2 OU (19:22)
[2016-10-12] MEDS ORDERED: ASPI81TA13 PO (19:22)
[2016-10-12] MEDS ORDERED: LEVO100T5 PO (19:22)
[2016-10-12] MEDS ORDERED: REST0.05 OU (19:22)
[2016-10-12] MEDS ORDERED: VITA20008 PO (19:22)
[2016-10-12] MEDS ORDERED: DILT30TA PO (19:22)
[2016-10-12] MEDS ORDERED: CALC1TAB30 PO (19:22)
[2016-10-12] MEDS ORDERED: ATEN50TA2 PO (19:22)
[2016-10-12] MEDS ORDERED: B-COTAB27 PO (19:22)
[2016-10-12] MEDS ORDERED: ATOR40TA PO (19:22)
[2016-10-12] MEDS ORDERED: HYDR25T PO (19:22)
[2016-10-12] MEDS ORDERED: ACET-654 PO (19:22)
[2016-10-12] MEDS ORDERED: REFR1DRO8 OU (19:22)
[2016-10-12] MEDS ORDERED: FLUO40CA PO (19:22)
[2016-10-12] MEDS ORDERED: CYCL10TA PO (19:22)
[2016-10-12] MEDS ORDERED: ONDANSETRON 4MG/2ML VIAL (J2405) IV PRN (19:45)
--- NOTE | 2016-10-12 21:00 | REPUSA ---
MRI of the brain Clinical history: stroke. Comparison: 09/21/2016. Technique: Multiecho multiplanar MRI images of the brain were obtained without administration of cont rast. Diffusion weighted images with ADC mapping was also obtained. Findings: The ventricles and sulci are symmetric bilaterally. The brain parenchyma is grossly stable. The subac [place] infarct in the right basal ganglia is grossly stable, demonstrating normal evolution when compare d to the prior study. Periventricular and subcortical white matter T2 signal changes are stable. Ther e is no evidence of acute hemorrhage or infarct. There is no midline shift, mass effect, or extra-axi al fluid collection. The midline intracranial structures do not demonstrate any gross abnormalities. The cervical cranial junction is intact. The orbits are unremarkable. The visualized paranasal sinuse s and mastoid air cells are clear. The osseous structures and superficial soft tissues are unremarkab le. The vascular structures demonstrate appropriate flow voids. Impression: 1. No evidence of acute infarct. Overall, no significant change since the prior study. 2. The subacute infarct in the right basal ganglia is grossly stable. 3. Moderate chronic small vessel ischemic changes appear stable as well.
[2016-10-12 21:37] VITALS: BP 119/79
[2016-10-12] MEDS: NYSTATIN 100,000 UNITS/GM TOPICAL PWD 15 GM TOP SCH (21:40)
[2016-10-13] VITALS (9 sets, daily range): BP systolic 110–136; BP diastolic 55–97
--- NOTE | 2016-10-13 | REPUSA ---
MRA of the brain Clinical history: stroke. Comparison: 10/12/2016, 09/21/2016. Technique: [id number] MRA images of the brain were obtained without administration of contrast. 3 -D MIP images were also obtained. Findings: The vascular structures extending from the distal carotid and vertebrobasilar arterial syst ems, through the [place], demonstrate normal caliber and contour. Atrophy of the left anteri or communicating artery is noted. There is no evidence of aneurysm, stenosis, or thrombosis. Impression: Unremarkable MRA examination of the brain.
[2016-10-13] MEDS: LEVOTHYROXINE 0.1 MG TAB (100 MCG) PO SCH (06:18)
[2016-10-13] MEDS: ASPIRIN 81 MG ENTERIC TAB PO SCH (08:04)
[2016-10-13] MEDS: RIVAROXABAN 20 MG TAB (XARELTO) PO SCH (08:04)
[2016-10-13] MEDS: ATENOLOL 50 MG TAB PO SCH (08:05)
[2016-10-13] MEDS: FLUoxetine 20 MG CAP PO SCH (08:05)
[2016-10-13] MEDS: PANTOPRAZOLE 40MG TAB (PROTONIX) PO SCH (08:05)
[2016-10-13] MEDS: ATORVASTATIN 20 MG TAB PO SCH (08:06)
[2016-10-13] MEDS: VITAMIN D 1,000 INTERNATIONAL UNITS TABLET PO SCH (08:06)
[2016-10-13] MEDS: DIGOXIN 0.125 MG TAB PO SCH (08:06)
[2016-10-13] MEDS: MULTIVITAMINS/MINERALS THERAP 1 TAB PO SCH (08:08)
[2016-10-13] MEDS: NYSTATIN 100,000 UNITS/GM TOPICAL PWD 15 GM TOP SCH ×2 (08:09→21:07)
--- NOTE | 2016-10-13 10:19 | REP ---
BILATERAL CAROTID DUPLEX ULTRASOUND: 10/13/2016. Clinical history: CVA symptoms. There are no prior carotid studies. Prior MRA brain 10/12/2016 and 08/30/2016 reviewed. Findings. Standard duplex techniques utilized. Both common carotid arteries are very tortuous in their course. Some scattered intimal thickening is noted, but no calcific plaque. The right bulb shows trace amounts of mixed plaque. The right internal carotid shows no significant or visible plaque. The left common carotid also shows some scattered intimal thickening and there are small amounts of soft plaque at the bulb and into the proximal ICA. Peak velocities: RIGHT LEFT CCA Systolic 1.10 0.85 m/s ICA systolic 0.91 0.45 m/s ICA diastolic 0.40 0.16 m/s ECA systolic 0.85 0.97 m/s ICA/CCA Ratio 0.82 0.53 Cranial direction of flow is seen in the left vertebral artery. Technologist and images show no visualization of the right vertebral artery. I would note that the MR brain does show symmetric vertebral contribution to the basilar artery in August and on yesterday's examination. An irregular rhythm is noted on the Doppler tracings. The Doppler waveform shows no significant spectral broadening or filling in of the systolic window. Impression: 1. There is some mild stenosis of the internal carotids less than 50%. No hemodynamically significant or flow restricting lesion noted. Extremely tortuous common carotid arteries noted. 2. Doppler tracing shows no spectral broadening or significant filling in of the systolic window. 3. Vertebral artery shows cranial direction of flow. The right vertebral is not visualized but on the brain MRI yesterday and last month, there was symmetric contribution of vertebral arteries to the basilar artery. Signed by Joby Mirza MD 10/13/2016 05:06 P
--- NOTE | 2016-10-13 12:53 | HPE ---
DATE OF ADMISSION: 10/12/2016 PRIMARY CARE PROVIDER: in [facility] OUTPATIENT NEUROLOGIST: Dr. Menon HISTORY OF PRESENT ILLNESS: The patient is a 71-year-old female with a past medical history significant for hypertension, dyslipidemia, atrial fibrillation, hypothyroidism, cerebrovascular accident (CVA), who presented to [facility] on 10/12/2016 for worsening left-sided weakness, especially on the left arm. Patient has a history of CVA, first episode occurring 06/22/2016 at [facility]. In August patient came to [facility] for CVA-like symptoms. Patient later was admitted to the rehabilitation program and discharged on 09/22/2016. Per patient, on the day of discharge patient still had left-sided weakness; however, patient did have some strength of the left arm. Patient able to perform simple tasks; however, after discharge from the rehabilitation, patient started to notice progressive worsening of the left-sided weakness, especially the left arm. Now she cannot even move her left arm freely. Denies any associated symptoms. ALLERGIES: SULFA. PAST MEDICAL HISTORY: 1. Hypertension. 2. Dyslipidemia. 3. Atrial fibrillation. 4. Hypothyroidism. 5. CVA. PAST SURGICAL HISTORY: 1. Right ankle fracture status post surgical repair. 2. Bilateral total knee replacement in 2006 and 2012. SOCIAL HISTORY: Denies smoking. Denied alcohol use. Denied recreational drug use. Patient is full code. REVIEW OF SYSTEMS: GENERAL: No fever. No chills. HEENT: No vision change. No auditory changes. CARDIOVASCULAR: No chest pain. No palpitations. History of atrial fibrillation. RESPIRATORY: No shortness of breath. No cough. No sputum production. ABDOMEN: Had episode of nausea but no vomiting, no abdominal pain, no diarrhea. NEUROLOGIC: History of CVA. First episode occurred in June 2016. Patient had another episode occurring in August 2016. Currently patient has worsening of left arm weakness. MUSCULOSKELETAL: No muscle pain or joint pain. OBJECTIVE: VITAL SIGNS: Temperature 97, pulse is 92, respiratory rate 16, blood pressure is 145/85, pulse oximetry is 93% in room air. GENERAL: No sign of acute distress, alert and oriented times three. HEENT: Normocephalic, atraumatic. Extraocular motor grossly intact. CARDIOVASCULAR: Irregularly irregular. Heart rate running about 90-100. RESPIRATORY: Clear to auscultation bilaterally. ABDOMEN: Soft, nontender, nondistended. Bowel sounds present. No rebound. No guarding. MUSCULOSKELETAL: No lower extremity edema. No sign of cyanosis. NEUROLOGIC: Muscle strength 2-3 out of 5 of the left upper extremity, 2/5 around the left hip joint. Muscle strength around the knee joint is about 3/5. Otherwise, the muscle strength is 5/5 throughout. LABORATORY DATA: WBC 8, hemoglobin 14.2, hematocrit 42.8, platelet count is 356. Sodium is 142, potassium 3.8, chloride is 103, carbon dioxide 32, BUN 10, creatinine 0.67, GFR greater than 60, fasting glucose 123, calcium is 8.8. Total CK is 28. Troponin I is less than 0.02. PT is 21.5, INR is 1.86. Digoxin level is 0.7. IMAGING STUDIES: CT of the head without contrast showed age-related atrophy and microvascular ischemic changes. Encephalomalacia related to old right basilar ganglion infarct. No acute intracranial hemorrhages, infarction, or mass effect. Chest x-ray showed normal portal chest x-ray. ASSESSMENT AND PLAN: 1. Worsening left upper extremity weakness. Patient was admitted to progressive care unit (PCU) on evaluation status. Will try to rule out worsening stroke. Will contact the neurologist. Currently patient is on aspirin and Lipitor. 2. Atrial fibrillation. Patient is on atenolol, diltiazem, and Xarelto. Rate is in a satisfactory range. 3. Hypothyroidism, on Synthroid. Check thyroid-stimulating hormone (TSH). 4. Anxiety/depression, on Prozac. 5. Deep vein thrombosis (DVT) prophylaxis. Patient on Xarelto. [facility]
--- NOTE | 2016-10-13 13:16 | IPNPDOC ---
Text Note Date of Service The patient was seen on 10/13/16. NOTE Subjective: Patient is a 71 year old female with a PMHx of HTN, DLP, A. fib, Hypothyroidism and CVA (06/2016, 08/2016) who presented to the ER with complaints of left sided weakness. She recently had a CVA and was discharge on . At that point she had some left sided strength that ultimately improved , but never resolved. After discharge she had worsening of her symptoms. Objective: Vitals (See below) General: Lying in bed, no acute distress, comfortable, AAOx3 HEENT: NC, AT CVS: Irregular irregular, +S1S2 Lungs: Fair air entry b/l, -w/r/r Abdomen: Soft, ND, NT, +BSx4 Extremities: +PPx4, - Edema, - Calf tenderness Neuro: 3/5 at left upper and lower extremity and 5/5 at right upper and lower extremity, no sensory defect appreciated Assessment and plan: 1. Left upper / lower extremity weakness - possibly 2/2 cerebrovascular accident - Clinically she has no progression or improvement in her strength - Physical reveals left sided weakness that is more pronounced - MRI brain 10/12: no evidence of acute infact, subacute infarct in R basal ganglia is grossly stable - Neurology has been consulted; awaiting their input - c/w ASA 81 and Atorvastatin 40 - Will get PT / OT evaluation 2. A. fib - rate controlled with atenolol, diltiazem and Xarelto - Anticoagulation with Xarelto 3. Hypothyroidism - c/w Synthroid 4. Anxiety / Depression - c/w Prozac 5. DVT prophylaxis - on full anticoagulation with Xarelto VS,Fishbone, I+O VS, Fishbone, I+O Laboratory Tests 10/12/16 17:35 Red Blood Count 4.71, Mean Corpuscular Volume 90.7, Mean Corpuscular Hemoglobin 30.1, Mean Corpuscular Hemoglobin Concent 33.2, Red Cell Distribution Width 14.2 , Neutrophils (%) (Auto) 76.7 H, Lymphocytes (%) (Auto) 14.2 L, Monocytes (%) ( Auto) 6.2 H, Eosinophils (%) (Auto) 1.2, Basophils (%) (Auto) 0.4, Neutrophils # (Auto) 6.1, Lymphocytes # (Auto) 1.1 L, Monocytes # (Auto) 0.5, Eosinophils # (Auto) 0.1, Basophils # (Auto) 0.0 10/13/16 04:46 Red Blood Count 4.30, Mean Corpuscular Volume 90.4, Mean Corpuscular Hemoglobin 30.3, Mean Corpuscular Hemoglobin Concent 33.6, Red Cell Distribution Width 14.2 , Calcium Level 8.7 L Vital Signs Date Time Temp Pulse Resp B/P Pulse Ox O2 Delivery O2 Flow Rate FiO2 10/13/16 12:00 97.0 90 18 110/59 92 Room Air I&O- Last 24 Hours up to 6 AM 10/13/16 06:00 Intake Total 60 ml Output Total 150 ml Balance -90 ml RADHA HENRY MD Oct 13, 2016 13:16
[2016-10-13] MEDS: LIDOCAINE 5% (LIDODERM) PATCH TD SCH (16:09)
[2016-10-13] MEDS: **NOTE PATIENT COMMENT** MISC XX SCH (21:00)
[2016-10-13] MEDS: RESTASIS (PATIENT'S OWN MED) OU SCH (21:08)
[2016-10-13] MEDS: ACETAMINOPHEN TAB 650MG DOSE (2X325MG) PO PRN (21:17)
--- NOTE | 2016-10-13 21:34 | ECHO ---
DATE OF PROCEDURE: 10/13/2016 REFERRING PHYSICIAN: Dr. Lizett Talavera PATIENT LOCATION: ICU REASON FOR ECHOCARDIOGRAM: CVA. 2D MEASUREMENTS: IVS: 1.1 cm LVPW: 1.1 cm LV: 4.5 cm LA: 4.3 cm Aorta: 2.9 cm IVC: 2.5 cm DOPPLER MEASUREMENTS: Peak velocity across the aortic valve: 1.46 m/s Peak velocity across the LVOT: 0.73 m/s Peak gradient across the aortic valve: 8.57 mmHg Mitral E: 0.89 Maximum tricuspid valve velocity: 2.1 m/s 2D COMMENTS: 1. Technically limited study due to poor acoustic window. 2. The left ventricular size is normal as well as left ventricular wall thickness and systolic function. The estimated global left ventricular systolic ejection fraction is 65 to 70%. 2. Mildly enlarged left atrium. The right atrium in limited views appeared to be mildly enlarged. Normal right ventricle. 3. The atrial septum appeared to be normal without evidence of defect or shunt. 4. Normal aortic root. 5. Trace to small pericardial effusion noted mainly posteriorly, no evidence of cardiac tamponade. 6. Mildly calcified aortic valve, leaflet excursion appeared to be normal. Mildly calcified mitral annulus with normal anterior mitral valve leaflet motion. Normal tricuspid valve. The pulmonic valve in limited views appeared to be normal. The proximal pulmonary artery branches were not well visualized. 7. The inferior vena cava was mildly enlarged, central venous pressure might be elevated. DOPPLER: It detects mild tricuspid regurgitation. The calculated pulmonary artery systolic pressure was normal. Assessment of the left ventricular diastolic function was limited, the patient appeared to be in atrial fibrillation during the test. IMPRESSION: 1. Technically limited study due to poor acoustic window. 2. Normal global left ventricular systolic function. 3. Aortic valve sclerosis without any significant stenosis or aortic regurgitation. 4. Isolated mildly enlarged left atrium. No significant mitral regurgitation detected. 5. Mild tricuspid regurgitation with a normal calculated pulmonary artery systolic pressure. The right atrium appeared to be mildly enlarged. 6. The inferior vena cava was mildly enlarged, central venous pressure might be elevated. 7. Trace to small pericardial effusion noted posteriorly, no evidence of cardiac tamponade. MTDD
[2016-10-13] MEDS ORDERED: ISOVUE-370 76% 100ML VIAL (Q9967) As Ordered ONE (22:04)
[2016-10-14] VITALS (10 sets, daily range): BP systolic 114–165; BP diastolic 56–89
[2016-10-14] MEDS: LEVOTHYROXINE 0.1 MG TAB (100 MCG) PO SCH (06:15)
[2016-10-14] MEDS: NYSTATIN 100,000 UNITS/GM TOPICAL PWD 15 GM TOP SCH ×2 (09:37→20:18)
[2016-10-14] MEDS: FLUoxetine 20 MG CAP PO SCH (09:38)
[2016-10-14] MEDS: PANTOPRAZOLE 40MG TAB (PROTONIX) PO SCH (09:38)
[2016-10-14] MEDS: VITAMIN D 1,000 INTERNATIONAL UNITS TABLET PO SCH (09:38)
[2016-10-14] MEDS: ATORVASTATIN 20 MG TAB PO SCH (09:39)
[2016-10-14] MEDS: ATENOLOL 50 MG TAB PO SCH (09:39)
[2016-10-14] MEDS: ASPIRIN 81 MG ENTERIC TAB PO SCH (09:39)
[2016-10-14] MEDS: DIGOXIN 0.125 MG TAB PO SCH (09:39)
[2016-10-14] MEDS: LIDOCAINE 5% (LIDODERM) PATCH TD SCH (09:40)
[2016-10-14] MEDS: RESTASIS (PATIENT'S OWN MED) OU SCH ×2 (09:40→20:18)
[2016-10-14] MEDS: MULTIVITAMINS/MINERALS THERAP 1 TAB PO SCH (09:40)
[2016-10-14] MEDS: RIVAROXABAN 20 MG TAB (XARELTO) PO SCH (09:40)
--- NOTE | 2016-10-14 11:32 | IPNPDOC ---
Text Note Date of Service The patient was seen on 10/14/16. NOTE Subjective: Patient is a 71 year old female with a PMHx of HTN, DLP, A. fib, Hypothyroidism and CVA (06/2016, 08/2016) who presented to the ER with complaints of left sided weakness. She recently had a CVA and was discharge on . At that point she had some left sided strength that ultimately improved , but never resolved. After discharge she had worsening of her symptoms. Patient was seen and examined at the beside. Still has persistent left sided weakness. Objective: Vitals (See below) General: Lying in bed, no acute distress, comfortable, AAOx3 HEENT: NC, AT CVS: Irregular irregular, +S1S2 Lungs: Fair air entry b/l, -w/r/r Abdomen: Soft, ND, NT, +BSx4 Extremities: +PPx4, - Edema, - Calf tenderness Neuro: 3/5 at left upper and lower extremity and 5/5 at right upper and lower extremity, no sensory defect appreciated Assessment and plan: 1. Left upper / lower extremity weakness - possibly 2/2 cerebrovascular accident - Clinically she has no progression or improvement in her strength since admission - Physical reveals left sided weakness that is more pronounced - MRI brain 10/12: no evidence of acute infarct, subacute infarct in R basal ganglia is grossly stable - Will go for MRI brain with contrast today - PT / OT recommendation: continue rehabilitation after discharge - Neurology (Dr. Duarte) consulted - appreciate their input - c/w ASA 81 and Atorvastatin 40 2. A. fib - rate controlled with atenolol, diltiazem and Xarelto - Anticoagulation with Xarelto 3. Hypothyroidism - c/w Synthroid 4. Anxiety / Depression - patient notes that she does not feel like herself anymore for a few months - Currently on Fluoxetine 40 - Will increase Fluoxetine to 60 qd 5. DVT prophylaxis - on full anticoagulation with Xarelto VS,Fishbone, I+O VS, Fishbone, I+O Laboratory Tests 10/14/16 04:47 Calcium Level 8.6 L, Red Blood Count 4.51, Mean Corpuscular Volume 91.0, Mean Corpuscular Hemoglobin 29.9, Mean Corpuscular Hemoglobin Concent 32.9, Red Cell Distribution Width 14.1 Vital Signs Date Time Temp Pulse Resp B/P Pulse Ox O2 Delivery O2 Flow Rate FiO2 10/14/16 09:39 139 10/14/16 09:39 165/89 10/14/16 08:00 97.6 20 96 Room Air I&O- Last 24 Hours up to 6 AM 10/14/16 06:00 Intake Total 590 ml Output Total 860 ml Balance -270 ml RADHA HENRY MD Oct 14, 2016 11:32
[2016-10-14] MEDS ORDERED: POLYVINYL ALCOHOL OPHTH SOLN 15 ML(LIQUITEARS) OU PRN (13:30)
[2016-10-14] MEDS: ACETAMINOPHEN TAB 650MG DOSE (2X325MG) PO PRN (19:42)
[2016-10-14] MEDS: **NOTE PATIENT COMMENT** MISC XX SCH (20:18)
[2016-10-15] VITALS: BP 128/58
[2016-10-15] MEDS: ACETAMINOPHEN TAB 650MG DOSE (2X325MG) PO PRN ×2 (03:05→23:01)
[2016-10-15 04:00] VITALS: BP 114/60
[2016-10-15] MEDS: LEVOTHYROXINE 0.1 MG TAB (100 MCG) PO SCH (05:54)
[2016-10-15 08:00] VITALS: BP 138/63
[2016-10-15] MEDS: RESTASIS (PATIENT'S OWN MED) OU SCH ×2 (09:00→21:22)
[2016-10-15] MEDS: LIDOCAINE 5% (LIDODERM) PATCH TD SCH (09:56)
[2016-10-15] MEDS: MULTIVITAMINS/MINERALS THERAP 1 TAB PO SCH (09:56)
[2016-10-15] MEDS: FLUoxetine 20 MG CAP PO SCH (09:56)
[2016-10-15] MEDS: PANTOPRAZOLE 40MG TAB (PROTONIX) PO SCH (09:57)
[2016-10-15] MEDS: ASPIRIN 81 MG ENTERIC TAB PO SCH (09:57)
[2016-10-15] MEDS: RIVAROXABAN 20 MG TAB (XARELTO) PO SCH (09:57)
[2016-10-15] MEDS: VITAMIN D 1,000 INTERNATIONAL UNITS TABLET PO SCH (09:57)
[2016-10-15] MEDS: DIGOXIN 0.125 MG TAB PO SCH (09:57)
[2016-10-15] MEDS: ATORVASTATIN 20 MG TAB PO SCH (09:57)
[2016-10-15] MEDS: ATENOLOL 50 MG TAB PO SCH (09:58)
[2016-10-15] MEDS: NYSTATIN 100,000 UNITS/GM TOPICAL PWD 15 GM TOP SCH ×2 (09:59→21:00)
--- NOTE | 2016-10-15 10:41 | IPNPDOC ---
Text Note Date of Service The patient was seen on 10/15/16. NOTE Subjective: Patient is a 71 year old female with a PMHx of HTN, DLP, A. fib, Hypothyroidism and CVA (06/2016, 08/2016) who presented to the ER with complaints of left sided weakness. She recently had a CVA and was discharge on . At that point she had some left sided strength that ultimately improved , but never resolved. After discharge she had worsening of her symptoms. Patient was seen and examined at the beside. She reports that her strength has had improvement. She continues to work with physical therapy and occupational therapy. She reports her mood still hasn't improved significantly. I advised her that her medications have been adjusted but may take up 2-4 weeks before she notices any change. Objective: Vitals (See below) General: Lying in bed, no acute distress, comfortable, AAOx3 HEENT: NC, AT CVS: Irregular irregular, +S1S2 Lungs: Fair air entry b/l, -w/r/r Abdomen: Soft, ND, NT, +BSx4 Extremities: +PPx4, - Edema, - Calf tenderness Neuro: 4/5 at left upper and lower extremity and 5/5 at right upper and lower extremity, no sensory defect appreciated Assessment and plan: 1. Left upper / lower extremity weakness - possibly 2/2 cerebrovascular accident , worsening of prior stroke - Has shown some improvement in her strength since admission - Physical reveals left sided weakness that is still present - MRI brain 10/12: no evidence of acute infarct, subacute infarct in R basal ganglia is grossly stable - MRI brain with contrast completed yesterday - awaiting official report - Neurology (Dr. Duarte) consulted - appreciate their input - c/w ASA 81 and Atorvastatin 40 - PT / OT recommendation: continue rehabilitation after discharge - will likely go home with services 2. Chronic A. fib - rate controlled with Atenolol, Digoxin and Diltiazem - Anticoagulation with Xarelto 3. Hypothyroidism - c/w Synthroid 4. Anxiety / Depression - patient notes that she does not feel like herself anymore for a few months and was still a little depressed - c/w adjusted dose of Fluoxetine 60 5. DVT prophylaxis - on full anticoagulation with Xarelto Disposition: - Awaiting results of MRI - discussed with radiology; report will be available today - Will discuss with Neurology once report is available VS,Fishbone, I+O VS, Aravind, I+O Laboratory Tests 10/15/16 04:46 Calcium Level 8.7 L, Red Blood Count 4.22, Mean Corpuscular Volume 91.1, Mean Corpuscular Hemoglobin 30.0, Mean Corpuscular Hemoglobin Concent 33.0, Red Cell Distribution Width 14.2 Vital Signs Date Time Temp Pulse Resp B/P Pulse Ox O2 Delivery O2 Flow Rate FiO2 10/15/16 09:58 95 138/63 10/15/16 04:00 98.2 18 93 Room Air I&O- Last 24 Hours up to 6 AM 10/15/16 06:00 Intake Total 1150 ml Output Total 1450 ml Balance -300 ml RADHA HENRY MD Oct 15, 2016 10:41
[2016-10-15 12:00] VITALS: BP 125/71
--- NOTE | 2016-10-15 12:26 | REP ---
MRI BRAIN WITH CONTRAST: HISTORY: Left upper extremity weakness. CONTRAST: ProHance 19 mL. There is no abnormal enhancement with contrast. Signed by Humberto Whatley MD 10/15/2016 12:29 P
[2016-10-15] MEDS ORDERED: SLF 3 ML SYR IV PRN (15:00)
[2016-10-15 15:05] VITALS: BP 137/62
[2016-10-15] MEDS: DICLOFENAC EPOLAMINE 1.3 % PATCH TOP SCH (21:21)
[2016-10-15] MEDS: SLF 3 ML SYR IV SCH (21:23)
[2016-10-15] MEDS: CYCLOBENZAPRINE 10 MG TAB PO PRN (21:26)
[2016-10-15 22:00] VITALS: BP 132/78
[2016-10-16 06:00] VITALS: BP 160/62
[2016-10-16] MEDS: SLF 3 ML SYR IV SCH ×3 (06:12→22:00)
[2016-10-16] MEDS: LEVOTHYROXINE 0.1 MG TAB (100 MCG) PO SCH (06:12)
[2016-10-16] MEDS: MULTIVITAMINS/MINERALS THERAP 1 TAB PO SCH (09:53)
[2016-10-16] MEDS: PANTOPRAZOLE 40MG TAB (PROTONIX) PO SCH (09:53)
[2016-10-16] MEDS: GABAPENTIN 100 MG CAP PO SCH ×2 (09:53→21:44)
[2016-10-16] MEDS: FLUoxetine 20 MG CAP PO SCH (09:53)
[2016-10-16] MEDS: ATORVASTATIN 20 MG TAB PO SCH (09:53)
[2016-10-16] MEDS: DIGOXIN 0.125 MG TAB PO SCH (09:54)
[2016-10-16] MEDS: ASPIRIN 81 MG ENTERIC TAB PO SCH (09:54)
[2016-10-16] MEDS: RIVAROXABAN 20 MG TAB (XARELTO) PO SCH (09:54)
[2016-10-16] MEDS: ATENOLOL 50 MG TAB PO SCH (09:55)
[2016-10-16] MEDS: RESTASIS (PATIENT'S OWN MED) OU SCH ×2 (09:55→21:46)
[2016-10-16] MEDS: DICLOFENAC EPOLAMINE 1.3 % PATCH TOP SCH ×2 (09:55→21:45)
[2016-10-16] MEDS: VITAMIN D 1,000 INTERNATIONAL UNITS TABLET PO SCH (09:55)
[2016-10-16] MEDS: NYSTATIN 100,000 UNITS/GM TOPICAL PWD 15 GM TOP SCH ×2 (09:56→21:43)
--- NOTE | 2016-10-16 11:15 | IPNPDOC ---
Text Note Date of Service The patient was seen on 10/16/16. NOTE Subjective: Patient is a 71 year old female with a PMHx of HTN, DLP, A. fib, Hypothyroidism and CVA (06/2016, 08/2016) who presented to the ER with complaints of left sided weakness. She recently had a CVA and was discharge on . At that point she had some left sided strength that ultimately improved , but never resolved. After discharge she had worsening of her symptoms. Patient was seen and examined at the beside. She did not report any issues overnight. I have went over the results of the MRI with her. We have discussed that she needs to continue with physical therapy. She was not seeking home placement with services and want to have subacute services setup. Objective: Vitals (See below) General: Lying in bed, no acute distress, comfortable, AAOx3 HEENT: NC, AT CVS: Irregular irregular, +S1S2 Lungs: Fair air entry b/l, -w/r/r Abdomen: Soft, ND, NT, +BSx4 Extremities: +PPx4, - Edema, - Calf tenderness Neuro: 4/5 at left upper and lower extremity and 5/5 at right upper and lower extremity, no sensory defect appreciated Assessment and plan: 1. Left upper / lower extremity weakness - possibly 2/2 worsening of prior cerebrovascular accident, no evidence of acute CVA - Has shown some improvement in her strength since admission - Physical reveals left sided weakness that is still present - MRI brain 10/12: no evidence of acute infarct, subacute infarct in R basal ganglia is grossly stable - MRI brain with contrast completed yesterday - awaiting official report - Neurology (Dr. Duarte) consulted - appreciate their input - c/w ASA 81 and Atorvastatin 40 - PT / OT recommendation: continue rehabilitation after discharge - advised home with services - Will discuss with case management about establishing subacute services 2. Chronic A. fib - rate controlled with Atenolol, Digoxin and Diltiazem - Anticoagulation with Xarelto 3. Hypothyroidism - c/w Synthroid 4. Anxiety / Depression - patient notes that she does not feel like herself anymore for a few months and was still a little depressed - c/w adjusted dose of Fluoxetine 60 5. DVT prophylaxis - on full anticoagulation with Xarelto Disposition: - Will discuss with case management about getting placement at subacute rehab center for continued PT VS,Aravind, I+O VS, Shakae, I+O Laboratory Tests 10/16/16 06:17 Calcium Level 9.2, Red Blood Count 4.32, Mean Corpuscular Volume 92.1, Mean Corpuscular Hemoglobin 29.8, Mean Corpuscular Hemoglobin Concent 32.3, Red Cell Distribution Width 14.3 Vital Signs Date Time Temp Pulse Resp B/P Pulse Ox O2 Delivery O2 Flow Rate FiO2 10/16/16 09:55 86 160/62 10/16/16 06:00 98.0 16 96 Room Air I&O- Last 24 Hours up to 6 AM 10/16/16 06:00 Intake Total 720 ml Output Total 2350 ml Balance -1630 ml RADHA HENRY MD Oct 16, 2016 11:15
[2016-10-16 14:00] VITALS: BP 115/63
[2016-10-16] MEDS: CYCLOBENZAPRINE 10 MG TAB PO PRN (21:43)
[2016-10-16] MEDS: ACETAMINOPHEN TAB 650MG DOSE (2X325MG) PO PRN (21:43)
[2016-10-16 22:00] VITALS: BP 122/65
[2016-10-17] MEDS: SLF 3 ML SYR IV SCH ×3 (05:41→22:00)
[2016-10-17] MEDS: LEVOTHYROXINE 0.1 MG TAB (100 MCG) PO SCH (05:41)
[2016-10-17 06:00] VITALS: BP 124/67
[2016-10-17] MEDS: ATENOLOL 50 MG TAB PO SCH (09:00)
[2016-10-17] MEDS: NYSTATIN 100,000 UNITS/GM TOPICAL PWD 15 GM TOP SCH ×2 (09:00→21:21)
[2016-10-17] MEDS: FLUoxetine 20 MG CAP PO SCH (10:04)
[2016-10-17] MEDS: MULTIVITAMINS/MINERALS THERAP 1 TAB PO SCH (10:05)
[2016-10-17] MEDS: ATORVASTATIN 20 MG TAB PO SCH (10:05)
[2016-10-17] MEDS: PANTOPRAZOLE 40MG TAB (PROTONIX) PO SCH (10:05)
[2016-10-17] MEDS: RIVAROXABAN 20 MG TAB (XARELTO) PO SCH (10:05)
[2016-10-17] MEDS: DIGOXIN 0.125 MG TAB PO SCH (10:06)
[2016-10-17] MEDS: GABAPENTIN 100 MG CAP PO SCH ×2 (10:06→21:18)
[2016-10-17] MEDS: ASPIRIN 81 MG ENTERIC TAB PO SCH (10:06)
[2016-10-17] MEDS: VITAMIN D 1,000 INTERNATIONAL UNITS TABLET PO SCH (10:07)
[2016-10-17] MEDS: RESTASIS (PATIENT'S OWN MED) OU SCH ×2 (10:07→21:22)
[2016-10-17] MEDS: DICLOFENAC EPOLAMINE 1.3 % PATCH TOP SCH ×2 (10:07→21:21)
--- NOTE | 2016-10-17 10:51 | IPNPDOC ---
Text Note Date of Service The patient was seen on 10/17/16. NOTE Subjective: Patient is a 71 year old female with a PMHx of HTN, DLP, A. fib, Hypothyroidism and CVA (06/2016, 08/2016) who presented to the ER with complaints of left sided weakness. She recently had a CVA and was discharge on . At that point she had some left sided strength that ultimately improved , but never resolved. After discharge she had worsening of her symptoms. Patient was seen and examined at the beside, appears more pleasant this morning. She has no complaints today. Objective: Vitals (See below) General: Lying in bed, no acute distress, comfortable, AAOx3 HEENT: NC, AT CVS: Irregular irregular, +S1S2 Lungs: Fair air entry b/l, -w/r/r Abdomen: Soft, ND, NT, +BSx4 Extremities: +PPx4, - Edema, - Calf tenderness Neuro: 4/5 at left upper and lower extremity and 5/5 at right upper and lower extremity, no sensory defect appreciated Assessment and plan: 1. Left upper / lower extremity weakness - possibly 2/2 worsening of prior cerebrovascular accident, no evidence of acute CVA - Has shown some improvement in her strength since admission - Physical reveals left sided weakness that is still present - MRI brain 10/12: no evidence of acute infarct, subacute infarct in R basal ganglia is grossly stable; MRI 10/14 with contrast: unremarkable - Neurology (Dr. Duarte) consulted - appreciate their input - c/w ASA 81 and Atorvastatin 40 - PT / OT recommendation: continue rehabilitation after discharge - advised home with services - Patient is refusing home service wants sub-acute rehab; will change status to [facility] and discuss with case management 2. Chronic A. fib - rate controlled with Atenolol, Digoxin and Diltiazem - Anticoagulation with Xarelto 3. Hypothyroidism - c/w Synthroid 4. Anxiety / Depression - c/w adjusted dose of Fluoxetine 60 5. DVT prophylaxis - on full anticoagulation with Xarelto Disposition: - Will change status to [facility] - Awaiting sub-acute placement VS,Fishbone, I+O VS, Fishbone, I+O Laboratory Tests 10/17/16 06:15 Calcium Level 8.8, Red Blood Count 4.08, Mean Corpuscular Volume 93.4, Mean Corpuscular Hemoglobin 29.9, Mean Corpuscular Hemoglobin Concent 32.0, Red Cell Distribution Width 14.5 Vital Signs Date Time Temp Pulse Resp B/P Pulse Ox O2 Delivery O2 Flow Rate FiO2 10/17/16 10:06 72 10/17/16 10:05 124/67 10/17/16 06:00 97.6 14 95 Room Air I&O- Last 24 Hours up to 6 AM 10/17/16 06:00 Intake Total 240 ml Output Total 800 ml Balance -560 ml RADHA HENRY MD Oct 17, 2016 10:51
[2016-10-17 14:00] VITALS: BP 117/55
[2016-10-17] MEDS: ACETAMINOPHEN TAB 650MG DOSE (2X325MG) PO PRN (21:19)
[2016-10-17 22:00] VITALS: BP 130/60
[2016-10-17] MEDS: CYCLOBENZAPRINE 10 MG TAB PO PRN (23:11)
[2016-10-18] MEDS: SLF 3 ML SYR IV SCH ×3 (05:34→22:00)
[2016-10-18] MEDS: LEVOTHYROXINE 0.1 MG TAB (100 MCG) PO SCH (05:34)
[2016-10-18 06:00] VITALS: BP 128/66
[2016-10-18] MEDS: ASPIRIN 81 MG ENTERIC TAB PO SCH (09:58)
[2016-10-18] MEDS: PANTOPRAZOLE 40MG TAB (PROTONIX) PO SCH (09:58)
[2016-10-18] MEDS: RIVAROXABAN 20 MG TAB (XARELTO) PO SCH (09:59)
[2016-10-18] MEDS: ATORVASTATIN 20 MG TAB PO SCH (09:59)
[2016-10-18] MEDS: MULTIVITAMINS/MINERALS THERAP 1 TAB PO SCH (09:59)
[2016-10-18] MEDS: VITAMIN D 1,000 INTERNATIONAL UNITS TABLET PO SCH (09:59)
[2016-10-18] MEDS: FLUoxetine 20 MG CAP PO SCH (09:59)
[2016-10-18] MEDS: DIGOXIN 0.125 MG TAB PO SCH (10:00)
[2016-10-18] MEDS: ATENOLOL 50 MG TAB PO SCH (10:00)
[2016-10-18] MEDS: RESTASIS (PATIENT'S OWN MED) OU SCH ×2 (10:01→21:24)
[2016-10-18] MEDS: GABAPENTIN 100 MG CAP PO SCH ×2 (10:01→21:25)
[2016-10-18] MEDS: DICLOFENAC EPOLAMINE 1.3 % PATCH TOP SCH ×2 (10:02→21:25)
[2016-10-18] MEDS: NYSTATIN 100,000 UNITS/GM TOPICAL PWD 15 GM TOP SCH ×2 (10:02→21:24)
[2016-10-18 14:00] VITALS: BP 132/88
[2016-10-18] MEDS: ACETAMINOPHEN TAB 650MG DOSE (2X325MG) PO PRN (20:35)
[2016-10-18] MEDS: CYCLOBENZAPRINE 10 MG TAB PO PRN (21:33)
[2016-10-19 06:00] VITALS: BP 135/63
[2016-10-19] MEDS: SLF 3 ML SYR IV SCH (06:00)
[2016-10-19] MEDS: LEVOTHYROXINE 0.1 MG TAB (100 MCG) PO SCH (06:00)
[2016-10-19] MEDS: NYSTATIN 100,000 UNITS/GM TOPICAL PWD 15 GM TOP SCH ×2 (09:00→21:00)
[2016-10-19 09:30] VITALS: BP 122/78
[2016-10-19] MEDS: ATENOLOL 50 MG TAB PO SCH (10:35)
[2016-10-19] MEDS: ATORVASTATIN 20 MG TAB PO SCH (10:36)
[2016-10-19] MEDS: PANTOPRAZOLE 40MG TAB (PROTONIX) PO SCH (10:37)
[2016-10-19] MEDS: ASPIRIN 81 MG ENTERIC TAB PO SCH (10:39)
[2016-10-19] MEDS: VITAMIN D 1,000 INTERNATIONAL UNITS TABLET PO SCH (10:40)
[2016-10-19] MEDS: RIVAROXABAN 20 MG TAB (XARELTO) PO SCH (10:41)
[2016-10-19] MEDS: MULTIVITAMINS/MINERALS THERAP 1 TAB PO SCH (10:42)
[2016-10-19] MEDS: RESTASIS (PATIENT'S OWN MED) OU SCH ×2 (10:45→20:33)
[2016-10-19] MEDS: GABAPENTIN 100 MG CAP PO SCH ×2 (10:58→20:32)
[2016-10-19] MEDS: DIGOXIN 0.125 MG TAB PO SCH (11:03)
[2016-10-19] MEDS: DICLOFENAC EPOLAMINE 1.3 % PATCH TOP SCH ×2 (11:05→20:32)
[2016-10-19] MEDS: FLUoxetine 20 MG CAP PO SCH (11:05)
[2016-10-19 14:00] VITALS: BP 120/73
[2016-10-19 22:00] VITALS: BP 135/82
[2016-10-19] MEDS: CYCLOBENZAPRINE 10 MG TAB PO PRN (23:40)
[2016-10-20 02:20] VITALS: BP 133/72
[2016-10-20 06:00] VITALS: BP 140/86
[2016-10-20] MEDS: LEVOTHYROXINE 0.1 MG TAB (100 MCG) PO SCH (06:04)
[2016-10-20] MEDS: FLUoxetine 20 MG CAP PO SCH (09:45)
[2016-10-20] MEDS: VITAMIN D 1,000 INTERNATIONAL UNITS TABLET PO SCH (09:46)
[2016-10-20] MEDS: ATORVASTATIN 20 MG TAB PO SCH (09:46)
[2016-10-20] MEDS: MULTIVITAMINS/MINERALS THERAP 1 TAB PO SCH (09:46)
[2016-10-20] MEDS: DIGOXIN 0.125 MG TAB PO SCH (09:46)
[2016-10-20] MEDS: ASPIRIN 81 MG ENTERIC TAB PO SCH (09:46)
[2016-10-20] MEDS: PANTOPRAZOLE 40MG TAB (PROTONIX) PO SCH (09:47)
[2016-10-20] MEDS: GABAPENTIN 100 MG CAP PO SCH ×2 (09:47→20:24)
[2016-10-20] MEDS: RIVAROXABAN 20 MG TAB (XARELTO) PO SCH (09:47)
[2016-10-20] MEDS: ATENOLOL 50 MG TAB PO SCH (09:47)
[2016-10-20] MEDS: DICLOFENAC EPOLAMINE 1.3 % PATCH TOP SCH ×2 (09:48→20:50)
[2016-10-20] MEDS: RESTASIS (PATIENT'S OWN MED) OU SCH ×2 (09:48→20:24)
[2016-10-20] MEDS: NYSTATIN 100,000 UNITS/GM TOPICAL PWD 15 GM TOP SCH ×2 (09:48→20:25)
[2016-10-20] MEDS: ACETAMINOPHEN TAB 650MG DOSE (2X325MG) PO PRN ×2 (16:03→23:12)
[2016-10-20 22:00] VITALS: BP 118/56
[2016-10-21] MEDS: LEVOTHYROXINE 0.1 MG TAB (100 MCG) PO SCH (05:34)
[2016-10-21 06:00] VITALS: BP 167/86
[2016-10-21] MEDS: GABAPENTIN 100 MG CAP PO SCH ×2 (09:47→21:03)
[2016-10-21] MEDS: FLUoxetine 20 MG CAP PO SCH (09:48)
[2016-10-21] MEDS: MULTIVITAMINS/MINERALS THERAP 1 TAB PO SCH (09:49)
[2016-10-21] MEDS: VITAMIN D 1,000 INTERNATIONAL UNITS TABLET PO SCH (09:49)
[2016-10-21] MEDS: ATENOLOL 50 MG TAB PO SCH (09:50)
[2016-10-21] MEDS: PANTOPRAZOLE 40MG TAB (PROTONIX) PO SCH (09:50)
[2016-10-21] MEDS: ASPIRIN 81 MG ENTERIC TAB PO SCH (09:50)
[2016-10-21] MEDS: RIVAROXABAN 20 MG TAB (XARELTO) PO SCH (09:51)
[2016-10-21] MEDS: DIGOXIN 0.125 MG TAB PO SCH (09:51)
[2016-10-21] MEDS: ATORVASTATIN 20 MG TAB PO SCH (09:52)
[2016-10-21] MEDS: DICLOFENAC EPOLAMINE 1.3 % PATCH TOP SCH ×2 (09:53→21:03)
[2016-10-21] MEDS: RESTASIS (PATIENT'S OWN MED) OU SCH ×2 (09:53→21:03)
[2016-10-21] MEDS: NYSTATIN 100,000 UNITS/GM TOPICAL PWD 15 GM TOP SCH ×2 (13:47→21:00)
[2016-10-21] MEDS: [UNRECOGNIZED DRUG - OTHER] OU PRN (13:48)
[2016-10-21 14:00] VITALS: BP 108/57
[2016-10-21] MEDS: CYCLOBENZAPRINE 10 MG TAB PO PRN (22:37)
[2016-10-22] MEDS: LEVOTHYROXINE 0.1 MG TAB (100 MCG) PO SCH (05:34)
[2016-10-22] MEDS: ACETAMINOPHEN TAB 650MG DOSE (2X325MG) PO PRN ×2 (05:36→22:20)
[2016-10-22 06:00] VITALS: BP 131/85
[2016-10-22] MEDS: RESTASIS (PATIENT'S OWN MED) OU SCH ×2 (09:00→20:31)
[2016-10-22] MEDS: DICLOFENAC EPOLAMINE 1.3 % PATCH TOP SCH ×2 (09:55→20:31)
[2016-10-22] MEDS: VITAMIN D 1,000 INTERNATIONAL UNITS TABLET PO SCH (09:58)
[2016-10-22] MEDS: GABAPENTIN 100 MG CAP PO SCH ×2 (09:58→20:29)
[2016-10-22] MEDS: PANTOPRAZOLE 40MG TAB (PROTONIX) PO SCH (09:58)
[2016-10-22] MEDS: MULTIVITAMINS/MINERALS THERAP 1 TAB PO SCH (09:59)
[2016-10-22] MEDS: FLUoxetine 20 MG CAP PO SCH (10:00)
[2016-10-22] MEDS: ASPIRIN 81 MG ENTERIC TAB PO SCH (10:00)
[2016-10-22] MEDS: ATORVASTATIN 20 MG TAB PO SCH (10:01)
[2016-10-22] MEDS: ATENOLOL 50 MG TAB PO SCH (10:02)
[2016-10-22] MEDS: RIVAROXABAN 20 MG TAB (XARELTO) PO SCH (10:03)
[2016-10-22] MEDS: DIGOXIN 0.125 MG TAB PO SCH (10:03)
[2016-10-22] MEDS: NYSTATIN 100,000 UNITS/GM TOPICAL PWD 15 GM TOP SCH ×2 (10:05→20:31)
[2016-10-22 14:00] VITALS: BP 118/56
[2016-10-22 22:00] VITALS: BP 115/59
[2016-10-22] MEDS: CYCLOBENZAPRINE 10 MG TAB PO PRN (22:53)
[2016-10-23] MEDS: LEVOTHYROXINE 0.1 MG TAB (100 MCG) PO SCH (05:24)
[2016-10-23 06:00] VITALS: BP 137/83
[2016-10-23] MEDS: ASPIRIN 81 MG ENTERIC TAB PO SCH (10:12)
[2016-10-23] MEDS: ATORVASTATIN 20 MG TAB PO SCH (10:13)
[2016-10-23] MEDS: FLUoxetine 20 MG CAP PO SCH (10:13)
[2016-10-23] MEDS: VITAMIN D 1,000 INTERNATIONAL UNITS TABLET PO SCH (10:13)
[2016-10-23] MEDS: PANTOPRAZOLE 40MG TAB (PROTONIX) PO SCH (10:14)
[2016-10-23] MEDS: DIGOXIN 0.125 MG TAB PO SCH (10:14)
[2016-10-23] MEDS: RIVAROXABAN 20 MG TAB (XARELTO) PO SCH (10:14)
[2016-10-23] MEDS: ATENOLOL 50 MG TAB PO SCH (10:15)
[2016-10-23] MEDS: MULTIVITAMINS/MINERALS THERAP 1 TAB PO SCH (10:15)
[2016-10-23] MEDS: GABAPENTIN 100 MG CAP PO SCH ×2 (10:15→20:06)
[2016-10-23] MEDS: RESTASIS (PATIENT'S OWN MED) OU SCH ×2 (10:17→20:06)
[2016-10-23] MEDS: NYSTATIN 100,000 UNITS/GM TOPICAL PWD 15 GM TOP SCH ×2 (10:18→20:07)
[2016-10-23] MEDS: DICLOFENAC EPOLAMINE 1.3 % PATCH TOP SCH ×2 (12:01→20:07)
[2016-10-23] MEDS: [UNRECOGNIZED DRUG - OTHER] OU PRN (12:01)
[2016-10-23] MEDS: hydrOXYzine 25 MG TAB PO PRN (22:30)
[2016-10-23] MEDS: CYCLOBENZAPRINE 10 MG TAB PO PRN (22:30)
[2016-10-23] MEDS: ACETAMINOPHEN TAB 650MG DOSE (2X325MG) PO PRN (22:35)
[2016-10-24] MEDS: LEVOTHYROXINE 0.1 MG TAB (100 MCG) PO SCH (05:30)
[2016-10-24 06:00] VITALS: BP 128/74
[2016-10-24] MEDS: VITAMIN D 1,000 INTERNATIONAL UNITS TABLET PO SCH (10:24)
[2016-10-24] MEDS: FLUoxetine 20 MG CAP PO SCH (10:24)
[2016-10-24] MEDS: ATORVASTATIN 20 MG TAB PO SCH (10:24)
[2016-10-24] MEDS: GABAPENTIN 100 MG CAP PO SCH ×2 (10:24→21:00)
[2016-10-24] MEDS: PANTOPRAZOLE 40MG TAB (PROTONIX) PO SCH (10:25)
[2016-10-24] MEDS: MULTIVITAMINS/MINERALS THERAP 1 TAB PO SCH (10:25)
[2016-10-24] MEDS: ASPIRIN 81 MG ENTERIC TAB PO SCH (10:25)
[2016-10-24] MEDS: ATENOLOL 50 MG TAB PO SCH (10:26)
[2016-10-24] MEDS: DIGOXIN 0.125 MG TAB PO SCH (10:26)
[2016-10-24] MEDS: RESTASIS (PATIENT'S OWN MED) OU SCH ×2 (10:27→21:00)
[2016-10-24] MEDS: DICLOFENAC EPOLAMINE 1.3 % PATCH TOP SCH ×2 (10:27→21:01)
[2016-10-24] MEDS: RIVAROXABAN 20 MG TAB (XARELTO) PO SCH (10:27)
[2016-10-24] MEDS: NYSTATIN 100,000 UNITS/GM TOPICAL PWD 15 GM TOP SCH ×2 (10:28→20:57)
--- NOTE | 2016-10-24 11:37 | IPNPDOC ---
Subjective Date Seen The patient was seen on 10/24/16. Subjective Chief Complaint/HPI The patient is a 71-year-old female admitted with a reason for visit of CVA. General: Denies: Chills, Night Sweats Constitutional: Denies: Chills, Fever Eyes: Denies: Pain, Vision change ENT: Denies: Ear Pain, Head Aches Skin: Denies: Lesions, Rash Pulmonary: Denies: Cough, Dyspnea Cardiovascular: Denies: Chest Pain, Palpitations Gastrointestinal: Denies: Nausea, Vomiting Genitourinary: Denies: Dysuria, Frequency Hematologic: Denies: Bleeding Excessively, Bruising Objective Physical Examination General Exam: Positive: Alert, Cooperative, No Acute Distress ENT Exam: Positive: Atraumatic, Mucous membr. moist/pink Neck Exam: Negative: JVD Chest Exam: Positive: Clear to auscultation, Normal air movement Heart Exam: Positive: Normal S1, Normal S2, Rate Normal Abdomen Exam: Positive: Soft, Negative: Tenderness Extremity Exam: Negative: Swelling, Tenderness Neuro Exam: Positive: Normal Speech, Other (3/5 Strength of the LUE and LLE ), Sensation Intact Assessment /Plan Plan/VTE VTE Prophylaxis Ordered?: Yes Plan LUE, LLE Weakness in a patient with a Hx of Right Basal Ganglia CVA MRI brain 10/12 with no evidence of acute infarct, subacute infarct in R basal ganglia is grossly stable MRI 10/14 with contrast unremarkable Neurology consulted during this admission Cont ASA 81 and Atorvastatin 40 PT/OT on board, patient seeking Subacute Rehab placement at this time, will follow up with PFS/CM Chronic Atrial Fibrillation Rate controlled with Atenolol, Digoxin and Diltiazem Anticoagulation with Xarelto Hypothyroidism Cont Synthroid Depression Cont Fluoxetine DVT prophylaxis Already on Xarelto Disposition-Awaiting sub-acute placement VS, I&O, 24H, Fishbone Vital Signs/I&O Vital Signs Date Time Temp Pulse Resp B/P Pulse Ox O2 Delivery O2 Flow Rate FiO2 10/24/16 10:26 74 10/24/16 10:26 145/70 10/24/16 06:00 98.7 20 96 10/23/16 06:00 Room Air I&O- Last 24 Hours up to 6 AM 10/24/16 06:00 Intake Total 2100 ml Output Total 1050 ml Balance 1050 ml Laboratory Data 24H LABS Laboratory Tests 2 10/24/16 08:12: Anion Gap 5L, Blood Urea Nitrogen 11, Creatinine 0.59, Sodium Level 143, Potassium Level 4.0, Chloride Level 105, Carbon Dioxide Level 33H, Calcium Level 8.6L, Glomerular Filtration Rate > 60.0 CBC/BMP Laboratory Tests 10/24/16 08:12 Calcium Level 8.6 L, Red Blood Count 4.24, Mean Corpuscular Volume 93.2, Mean Corpuscular Hemoglobin 30.0, Mean Corpuscular Hemoglobin Concent 32.2, Red Cell Distribution Width 14.5 TRUPTI MELÉNDEZ MD Oct 24, 2016 11:37
[2016-10-24] MEDS: hydrOXYzine 25 MG TAB PO PRN (17:12)
[2016-10-24] MEDS: [UNRECOGNIZED DRUG - OTHER] OU PRN (17:13)
[2016-10-24] MEDS: ACETAMINOPHEN TAB 650MG DOSE (2X325MG) PO PRN (21:00)
[2016-10-25] MEDS: LEVOTHYROXINE 0.1 MG TAB (100 MCG) PO SCH (05:51)
[2016-10-25 06:00] VITALS: BP 133/81
[2016-10-25] MEDS: RESTASIS (PATIENT'S OWN MED) OU SCH (09:00)
[2016-10-25] MEDS: DICLOFENAC EPOLAMINE 1.3 % PATCH TOP SCH (09:48)
[2016-10-25] MEDS: PANTOPRAZOLE 40MG TAB (PROTONIX) PO SCH (09:49)
[2016-10-25] MEDS: FLUoxetine 20 MG CAP PO SCH (09:49)
[2016-10-25] MEDS: ATORVASTATIN 20 MG TAB PO SCH (09:50)
[2016-10-25 09:52] VITALS: BP 138/93
[2016-10-25] MEDS: GABAPENTIN 100 MG CAP PO SCH (09:52)
[2016-10-25] MEDS: ATENOLOL 50 MG TAB PO SCH (09:52)
[2016-10-25] MEDS: RIVAROXABAN 20 MG TAB (XARELTO) PO SCH (09:53)
[2016-10-25] MEDS: VITAMIN D 1,000 INTERNATIONAL UNITS TABLET PO SCH (09:53)
[2016-10-25] MEDS: DIGOXIN 0.125 MG TAB PO SCH (09:55)
[2016-10-25] MEDS: ASPIRIN 81 MG ENTERIC TAB PO SCH (09:55)
[2016-10-25] MEDS: NYSTATIN 100,000 UNITS/GM TOPICAL PWD 15 GM TOP SCH (09:56)
[2016-10-25] MEDS: MULTIVITAMINS/MINERALS THERAP 1 TAB PO SCH (10:03)
[2016-10-25] MEDS: [UNRECOGNIZED DRUG - OTHER] OU PRN (13:57)
--- NOTE | 2016-10-25 15:42 | DS.PDOC ---
Discharge Summary General Date of Admission Oct 12, 2016 at 19:34 Date of Discharge 10/25/16 Specialist/Consultants Involve Dr. Duarte of Neurology Discharge Summary PROCEDURES PERFORMED DURING STAY: None. ADMITTING DIAGNOSES: 1. . History of right basal ganglia infarct 2. . Atrial fibrillation on Xarelto DISCHARGE DIAGNOSES: 1. . History of right basal ganglia infarct 2. . Atrial fibrillation on Xarelto COMPLICATIONS/CHIEF COMPLAINT: CVA. HISTORY OF PRESENT ILLNESS: . 71-year-old female with past medical history of hypertension, dyslipidemia, atrial fibrillation, hypothyroidism, and right basal ganglia cerebrovascular accident with left sided hemiparesis who was recently admitted at [facility] in June 2016 and August 2015 for CVA-like symptoms and subsequently discharged to the rehabilitation program presented to the ER after discharge from the rehabilitation program for progressive worsening of left-sided weakness after discharge from rehabilitation. During the patient's hospitalization, an MRI of the brain was done and this revealed no evidence of acute infarct. An MRI with contrast was also performed and was noted to be without acute findings as well. Dr. Duarte of neurology was consulted and recommended continued medical treatment. The patient was seen by physical therapy and occupational therapy here in the hospital. At this time the patient will be transferred to [facility] for continued subacute rehabilitation. DISCHARGE MEDICATIONS: Please see below. ALLERGIES: Please see below. PHYSICAL EXAMINATION ON DISCHARGE: VITAL SIGNS: Please see below. General Exam: Positive: Alert, Cooperative, No Acute Distress ENT Exam: Positive: Atraumatic, Mucous membr. moist/pink Neck Exam: Negative: JVD Chest Exam: Positive: Clear to auscultation, Normal air movement Heart Exam: Positive: Normal S1, Normal S2, Rate Normal Abdomen Exam: Positive: Soft, Negative: Tenderness Extremity Exam: Negative: Swelling, Tenderness Neuro Exam: Positive: Normal Speech, Other (3/5 Strength of the LUE and LLE ), Sensation Intact LABORATORY DATA: Please see below. IMAGING: MRA of the brain Clinical history: stroke. Comparison: 10/12/2016, 09/21/2016. Technique: [id number] MRA images of the brain were obtained without administration of contrast. 3-D MIP images were also obtained. Findings: The vascular structures extending from the distal carotid and vertebrobasilar arterial systems, through the pauma of [place], demonstrate normal caliber and contour. Atrophy of the left anterior communicating artery is noted. There is no evidence of aneurysm, stenosis, or thrombosis. Impression: Unremarkable MRA examination of the brain. MRI of the brain Clinical history: stroke. Comparison: 09/21/2016. Technique: Multiecho multiplanar MRI images of the brain were obtained without administration of contrast. Diffusion weighted images with ADC mapping was also obtained. Findings: The ventricles and sulci are symmetric bilaterally. The brain parenchyma is grossly stable. The subacute infarct in the right basal ganglia is grossly stable, demonstrating normal evolution when compared to the prior study. Periventricular and subcortical white matter T2 signal changes are stable. There is no evidence of acute hemorrhage or infarct. There is no midline shift, mass effect, or extra-axial fluid collection. The midline intracranial structures do not demonstrate any gross abnormalities. The cervical cranial junction is intact. The orbits are unremarkable. The visualized paranasal sinuses and mastoid air cells are clear. The osseous structures and superficial soft tissues are unremarkable. The vascular structures demonstrate appropriate flow voids. Impression: 1. No evidence of acute infarct. Overall, no significant change since the prior study. 2. The subacute infarct in the right basal ganglia is grossly stable. 3. Moderate chronic small vessel ischemic changes appear stable as well. PROGNOSIS: Medically stable at this time ACTIVITY: As tolerated. DIET: . 2 g low sodium diet DISCHARGE PLAN: DISPOSITION: [facility]. DISCHARGE INSTRUCTIONS: 1. . Follow-up with primary care physician within one to 2 weeks 2. . [facility]imize rehabilitation DISCHARGE CONDITION: Stable. TIME SPENT ON DISCHARGE: Greater than 30 minutes. Vital Signs/I&Os Vital Signs Date Time Temp Pulse Resp B/P Pulse Ox O2 Delivery O2 Flow Rate FiO2 10/25/16 09:55 87 10/25/16 09:52 138/93 10/25/16 06:00 98.4 20 96 10/23/16 06:00 Room Air I&O- Last 24 Hours up to 6 AM 10/25/16 06:00 Intake Total 1540 ml Output Total 1100 ml Balance 440 ml Discharge Medications Scheduled (B-Complex) 1 Tab Tab 1 TAB PO DAILY (Reported) (Calcium 500+D 500-200 mg-Unit) 1 Tab Tab 1 TAB PO QHS (Reported) (Systane Gel 0.4-0.3 %) 1 Chapito Chapito 1 CHAPITO OU QHS (Reported) (Restasis) 0.05 % Emu 1 DROP OU BID (Reported) Aspirin (Aspirin EC) 81 Mg Tab 81 MG PO DAILY (Reported) Atenolol (Atenolol) 50 Mg Tab 50 MG PO DAILY (Reported) Atorvastatin Calcium (Atorvastatin Calcium) 40 Mg Tab 40 MG PO DAILY (Reported ) Cholecalciferol (Vitamin D3) 2,000 Unit Tab 2,000 UNIT PO DAILY (Reported) Digoxin (Digoxin) 0.125 Mg Tab 0.125 MG PO DAILY (Reported) Diltiazem HCl (Diltiazem HCl) 30 Mg Tab 30 MG PO BID (Reported) Fluoxetine Hcl (Fluoxetine HCl) 40 Mg Cap 40 MG PO DAILY (Reported) Levothyroxine Sodium (Synthroid) 100 Mcg Tab 100 MCG PO DAILY (Reported) Melatonin (Melatonin) 5 Mg Tab 5 MG PO QHS (Reported) Multivitamins *[facility] STOCKED* (Thera M Plus *[facility] STOCKED*) 1 Tab Tab 1 TAB PO DAILY (Reported) Pantoprazole Sodium (Pantoprazole Sodium) 40 Mg Tab 40 MG PO DAILY (Reported) Rivaroxaban (Xarelto) 20 Mg Tab 20 MG PO DAILY (Reported) Scheduled PRN Acetaminophen (Acetaminophen) 325 Mg Tab 650 MG PO Q4H PRN PRN PAIN (Reported) Carboxymethylcellulose Sod (Refresh 1.4-0.6 %) 1 Ea Kylah 1 DROP OU TID PRN PRN DRY EYES (Reported) Cyclobenzaprine HCl (Cyclobenzaprine HCl) 10 Mg Tab 10 MG PO Q6H PRN PRN MUSCLE SPASMS (Reported) Hydroxyzine HCl (Hydroxyzine HCl) 25 Mg Tab 25 MG PO Q6H PRN PRN ANXIETY ( Reported) Allergies Coded Allergies: Shellfish Allergy (Verified Allergy, Unknown, 10/20/12) Sulfa Drugs (Verified Allergy, Unknown, 10/20/12) Sulfa Drugs Cross Reactors (Verified Allergy, Unknown, 10/20/12) TRUPTI MELÉNDEZ MD Oct 25, 2016 15:42
== END 2016-10-25 14:50 | DRG 57 ==
LOC: M ED 18:35 → M ED INP 19:34 → M ICU 10-13 03:19 → M MS5PR 10-15 14:58 → M MSPAV 10-20 02:17
PROVIDERS: ADMIT Internal Medicine; ATTEND Internal Medicine
DX: I69.354 Hemiplegia and hemiparesis following cerebral infarction affecting left non-dominant side (principal); I48.2 Chronic atrial fibrillation; E03.9 Hypothyroidism, unspecified; F41.9 Anxiety disorder, unspecified; F32.9 Major depressive disorder, single episode, unspecified; I10 Essential (primary) hypertension; E78.5 Hyperlipidemia, unspecified; E66.9 Obesity, unspecified; Z96.653 Presence of artificial knee joint, bilateral; Z79.01 Long term (current) use of anticoagulants; G47.33 Obstructive sleep apnea (adult) (pediatric); M19.90 Unspecified osteoarthritis, unspecified site; Z79.899 Other long term (current) drug therapy; Z68.38 Body mass index [BMI] 38.0-38.9, adult; Z79.82 Long term (current) use of aspirin; Z88.2 Allergy status to sulfonamides; Z91.013 Allergy to seafood

== ENCOUNTER 2018-02-02 06:45 | Day surgery (SDC) | payer MEDICARE, BC, OTHER ==
[2018-02-02] MEDS: PROPARACAINE 0.5% OPHTH SOL 15ML OS (07:00)
[2018-02-02] MEDS: OFLOXACIN 0.3 % (OCUFLOX) OPTH SOL 5ML OS (07:00)
[2018-02-02] MEDS: TROPICAMIDE 1% OPHTH SOLN 2ML OS (07:00)
[2018-02-02] MEDS: PHENYLEPHRINE 2.5% OPHTH SOL 2ML OS (07:00)
[2018-02-02] MEDS ORDERED: MIDAZOLAM INJ 2 MG/2 ML VIAL (J2250) As Ordered (07:59)
[2018-02-02] MEDS ORDERED: fentaNYL 100 MCG/2 ML INJECTION (J3010) As Ordered (07:59)
[2018-02-02] MEDS: DUOVISC (0.50ML VISCOAT/0.55ML PROVISC) OPHTH KIT As Ordered (08:30)
[2018-02-02] MEDS: BALANCED SALT IRRIGATION SOLUTION 500ML BAG (FOR OR EYE MACHINE) As Ordered (08:30)
[2018-02-02] MEDS: POVIDONE-IODINE 5% OPHTH PREP SOL 30ML As Ordered (08:30)
[2018-02-02] MEDS: CEFUROXIME 1MG/0.1ML INTRACAMERAL INJ As Ordered (08:30)
[2018-02-02] MEDS: LIDOCAINE 0.75%/EPINEPHRINE 0.025% IN BSS 1ML SYR INTRACAMERAL (OR ONLY) As Ordered (08:30)
== END 2018-02-02 09:40 | disposition home or self-care (01) ==
LOC: M SDC 06:45
DX: H25.12 Age-related nuclear cataract, left eye (principal); I48.91 Unspecified atrial fibrillation; I10 Essential (primary) hypertension; E78.00 Pure hypercholesterolemia, unspecified; E03.9 Hypothyroidism, unspecified; R29.898 Other symptoms and signs involving the musculoskeletal system; M12.9 Arthropathy, unspecified; F32.9 Major depressive disorder, single episode, unspecified; I69.998 Other sequelae following unspecified cerebrovascular disease; R06.83 Snoring; G47.33 Obstructive sleep apnea (adult) (pediatric); Z88.2 Allergy status to sulfonamides; Z88.6 Allergy status to analgesic agent; Z91.013 Allergy to seafood; Z79.899 Other long term (current) drug therapy; Z79.82 Long term (current) use of aspirin; Z79.01 Long term (current) use of anticoagulants; Z78.0 Asymptomatic menopausal state; Z96.653 Presence of artificial knee joint, bilateral
CPT/HCPCS: 66984

== ENCOUNTER 2018-02-09 08:56 | Day surgery (SDC) | payer MEDICARE, BC, OTHER ==
[~2018-02-09 08:56] MED LIST changes: -/HCTZ25TA PO; -ASPI81TAEC PO; -ATEN50TA2 PO; -ATOR40TA PO; -B COTAB3 PO; -CALC1TAB30 PO; -CYCL10TA PO; -DIGO0.12 PO; -DILT30TA PO; -FISHOIL PO; -FLUO20CA9 PO; -GLUC250C5 PO; -GLUCTAB6 PO; -HYDR25T PO; -LEVO100T4 PO; -LOPR1TAB6 PO; -LOTE0.5S OU; -MAPA325T2 PO; -MELA10TA4 PO; +MIDAZOLAM INJ 2 MG/2 ML VIAL (J2250) As Ordered; -PANT40TA2 PO; -REFR0.5D8 OU; -REST0.05 OU; -SIMV20TA2 PO; -SYNT100T PO; -SYST0.3G OU; -VITA100066 PO; -VITMTA PO; -XARE20TA PO; +fentaNYL 100 MCG/2 ML INJECTION (J3010) As Ordered
[2018-02-09] MEDS: PHENYLEPHRINE 2.5% OPHTH SOL 2ML OD (10:15)
[2018-02-09] MEDS: PROPARACAINE 0.5% OPHTH SOL 15ML OD (10:15)
[2018-02-09] MEDS: TROPICAMIDE 1% OPHTH SOLN 2ML OD (10:15)
[2018-02-09] MEDS: OFLOXACIN 0.3 % (OCUFLOX) OPTH SOL 5ML OD (10:15)
[2018-02-09] MEDS: POVIDONE-IODINE 5% OPHTH PREP SOL 30ML As Ordered (11:56)
[2018-02-09] MEDS: LIDOCAINE 0.75%/EPINEPHRINE 0.025% IN BSS 1ML SYR INTRACAMERAL (OR ONLY) As Ordered (11:56)
[2018-02-09] MEDS: BALANCED SALT IRRIGATION SOLUTION 500ML BAG (FOR OR EYE MACHINE) As Ordered (11:56)
[2018-02-09] MEDS: DUOVISC (0.50ML VISCOAT/0.55ML PROVISC) OPHTH KIT As Ordered (11:57)
[2018-02-09] MEDS: CEFUROXIME 1MG/0.1ML INTRACAMERAL INJ As Ordered (11:57)
== END 2018-02-09 12:52 | disposition home or self-care (01) ==
LOC: M SDC 08:56
DX: H25.11 Age-related nuclear cataract, right eye (principal); I48.91 Unspecified atrial fibrillation; I10 Essential (primary) hypertension; E78.00 Pure hypercholesterolemia, unspecified; Z79.82 Long term (current) use of aspirin; Z79.899 Other long term (current) drug therapy; F32.9 Major depressive disorder, single episode, unspecified; G47.30 Sleep apnea, unspecified; E03.9 Hypothyroidism, unspecified; Z91.013 Allergy to seafood; Z88.2 Allergy status to sulfonamides
CPT/HCPCS: 66984

== ENCOUNTER 2019-03-05 11:29 | Emergency (ER) | payer MEDICARE, BC, OTHER ==
[~2019-03-05] VITALS: Ht 157.5 cm; Wt 114.1 kg
[~2019-03-05 11:29] MED LIST changes: +ACET1TAB55 PO; +ASPI81TA24 PO; +ASPI81TAEC PO; +ATEN50TA2 PO; +ATOR40TA75 PO; +B COTAB3 PO; +B-COTAB27 PO; +CALC1TAB30 PO; +CYCL10TA PO; +CYMB60CA3 PO; +DIGO0.12 PO; +DILT30TA PO; +FISHOIL PO; +FLUO20CA19 PO; +FLUO40CA PO; +GLUC250C5 PO; +GLUCTAB6 PO; +HYDR-3363 PO; +HYDR-3644 PO; +LEVO100T4 PO; +LEVO100T5 PO; +LOPR1TAB6 PO; +LOTE0.5S OU; +MAPA325T2 PO; +MELA10TA4 PO; +MELA5TAB31 PO; -MIDAZOLAM INJ 2 MG/2 ML VIAL (J2250) As Ordered; +PANT40TA3 PO; +REFR0.5D8 OU; +REFR1DRO8 OU; +REST0.05 OU; +SIMV20TA2 PO; +SYNT100T PO; +SYST0.3G OU; +SYST0.4D2 OU; +VITA100066 PO; +VITA20008 PO; +VITMTA PO; +XARE20TA PO; -fentaNYL 100 MCG/2 ML INJECTION (J3010) As Ordered
--- NOTE | 2019-03-05 12:16 | REP ---
Right lower extremity deep vein duplex ultrasound for thrombus: The deep veins demonstrate normal compression, normal Doppler color flow and normal Doppler waveforms with respiration and augmentation from the popliteal vein to the common femoral vein. Impression: There is no right lower extremity deep vein thrombus. Electronically Signed by Benigno Johnson MD 03/05/2019 12:08 P
[2019-03-05] MEDS ORDERED: CEPH500C (17:07)
[2019-03-05 17:12] LABS: HEMATOCRIT 47.3 % (36.0-47.0); HEMOGLOBIN 14.9 g/dl (12.0-15.5); MEAN CORPUSCULAR HEMOGLOBIN 29.7 pg (27.0-33.0); MEAN CORPUSCULAR HGB CONC 31.5 g/dl (32.0-36.5); MEAN CORPUSCULAR VOLUME 94.4 fl (80.0-96.0); PLATELET COUNT, AUTOMATED 250 10^3/uL (150-450); RED BLOOD COUNT 5.01 10^6/uL (4.00-5.40); WHITE BLOOD COUNT 9.7 10^3/uL (4.0-10.0)
--- NOTE | 2019-03-05 17:15 | REP ---
Knee series: Four views. History: Knee pain and swelling. Findings: Four views of the right knee are presented. There is no sunrise view. The patient is status post right knee arthroplasty. Components are in good position. No fracture is seen. Impression: Status post right knee arthroplasty. No acute bony abnormality. Electronically Signed by Yazan Rai MD 03/05/2019 05:06 P
[2019-03-05] MEDS ORDERED: ACETAMINOPHEN 500 MG TAB PO ONE (17:30)
[2019-03-05 17:46] LABS: BLOOD UREA NITROGEN 17 MG/DL (7-18); CALCIUM LEVEL 9.4 MG/DL (8.8-10.2); CARBON DIOXIDE LEVEL 32 MEQ/L (21-32); CHLORIDE LEVEL 106 MEQ/L (98-107); CREATININE FOR GFR 0.75 MG/DL (0.55-1.30); GLOMERULAR FILTRATION RATE > 60.0 (>39); GLUCOSE, FASTING 90 MG/DL (70-100); SODIUM LEVEL 142 MEQ/L (136-145); URIC ACID 4.9 MG/DL (2.6-6.0)
[2019-03-05 19:11] LABS: ERYTHROCYTE SEDIMENTATION RATE 19 mm/hr (0-30)
[2019-03-05 20:24] VITALS: BP 145/74
--- NOTE | 2019-03-06 10:24 | REP ---
Right tib-fib series: Four views. History: Leg pain. Findings: Four views of the right tibia and fibula demonstrate a total knee prosthesis in place and screw plate fixation device in the distal fibula. There is old post-traumatic spurring at the ankle and along the medial border of the distal fibula. There is diffuse soft tissue swelling in the calf. No fracture or other acute bony abnormality is seen. A plantar calcaneal spur is noted. Impression: No acute bony abnormality. Right knee arthroplasty and status post ORIF distal fibular fracture. Ankle spurring and heel spurring. Electronically Signed by Yazan Rai MD 03/06/2019 07:10 P
== END 2019-03-05 20:25 | disposition home or self-care (01) ==
LOC: M ED 11:29
DX: M25.561 Pain in right knee (principal); I10 Essential (primary) hypertension; E03.9 Hypothyroidism, unspecified; I48.91 Unspecified atrial fibrillation; F41.9 Anxiety disorder, unspecified; G47.30 Sleep apnea, unspecified; Z79.899 Other long term (current) drug therapy; Z79.82 Long term (current) use of aspirin; Z79.890 Hormone replacement therapy; Z79.01 Long term (current) use of anticoagulants; Z88.1 Allergy status to other antibiotic agents; Z88.2 Allergy status to sulfonamides; Z91.018 Allergy to other foods

== ENCOUNTER → 2019-12-06 | Outpatient (REF) | payer MEDICARE, OTHER ==
[~2019-12-06] MED LIST changes: +CEPH500C; +CYCL-707 PO; -CYCL10TA PO; -FLUO20CA19 PO; +FLUO20CA22 PO; -MAPA325T2 PO; +MAPA325T8 PO
== END ==
LOC: M LAB REF 16:22
PROVIDERS: ATTEND Physician Assistant
DX: N39.0 Urinary tract infection, site not specified (principal)

== ENCOUNTER → 2022-10-14 | Outpatient (CLI) | payer MEDICARE, BC, OTHER ==
[~2022-10-14] MED LIST changes: +ASPI-569 PO; -ASPI81TAEC PO; -CYMB60CA3 PO; +CYMB60CA4 PO; +DIGO0.123 PO; -GLUCTAB6 PO; +GLUCTAB7 PO; -MELA5TAB31 PO; +MELA5TAB36 PO; +PANT40TA29 PO; -PANT40TA3 PO; +TRAZ-257 PO
== END ==
LOC: M LABSMTC 11:41
PROVIDERS: ATTEND Anesthesiology
DX: Z01.818 Encounter for other preprocedural examination (principal); Z11.52 Encounter for screening for COVID-19

== ENCOUNTER 2022-10-19 08:46 | Day surgery (SDC) | payer MEDICARE, BC, OTHER ==
[~2022-10-19] VITALS: Ht 157.5 cm; Wt 101.1 kg
[~2022-10-19 08:46] MED LIST changes: +ACETYLCHOLINE OPHTH SOLN 1% 2ML (MIOCHOL-E) As Ordered ONE; +CEFUROXIME 1MG/0.1ML INTRACAMERAL INJ As Ordered ONE; +LIDOCAINE 1% SDV 5ML VIAL As Ordered ONE; +MAXITROL OPHTH SUSP 5ML As Ordered ONE; +POVIDONE-IODINE 5% OPHTH PREP SOL 30ML As Ordered ONE; +mitoMYcin 0.2 MG/VIAL KIT FOR OPHTHALMIC USE As Ordered ONE
[2022-10-19] MEDS ORDERED: fentaNYL 100 MCG/2 ML INJECTION As Ordered ONE (10:32)
[2022-10-19] MEDS ORDERED: MIDAZOLAM INJ 2MG/2ML VIAL As Ordered ONE (10:32)
[2022-10-19] MEDS ORDERED: TETRACAINE 0.5% OPHTH SOLN 4ML As Ordered ONE (10:46)
[2022-10-19 11:45] VITALS: BP 125/80
== END 2022-10-19 11:50 | disposition home or self-care (01) ==
LOC: M SDC 08:46
PROVIDERS: ATTEND Ophthalmology
DX: H18.511 Endothelial corneal dystrophy, right eye (principal); I10 Essential (primary) hypertension; I48.0 Paroxysmal atrial fibrillation; E78.5 Hyperlipidemia, unspecified; E03.9 Hypothyroidism, unspecified; Z79.01 Long term (current) use of anticoagulants; Z79.82 Long term (current) use of aspirin; Z79.899 Other long term (current) drug therapy; Z86.73 Personal history of transient ischemic attack (TIA), and cerebral infarction without residual deficits; G47.33 Obstructive sleep apnea (adult) (pediatric); Z88.2 Allergy status to sulfonamides; Z91.013 Allergy to seafood
CPT/HCPCS: 65435; J0697; J2250; J3010